=== PATIENT | male | born 1940 | race Caucasian/White ===

== ENCOUNTER → 2016-11-11 | Outpatient (REF) | payer OTHER ==
[~2016-11-11] MED LIST: /ADVA50050; /ALEN70TA; /IPRA3SP; /TAMS4CA; ACET30TAB PO; ADVAIR200 INHALATION; AUG875 PO; BABY81CH; BACI500O8 TOP; BACTROCREA TOPICALLY; CALC12502; CALTAB PO; CARV6.25 PO; CO Q10CA PO; COLA100C2; COMBAER6 INH; COMBIVENT; COMBIVENT PO; COMBVENT INH; CORE6.25; COREG625 PO; DULE200A IN; FISH1000 OR; FISHCAP; FLOMAX 0.4 PO; FOSAMAX70 PO; GRAPE SEED EXTRACT; KEFL500C7 PO; KRIL1000 PO; LACHYDRIN TOP; LASI20TA; LASI20TA PO; LASIX20 PO; LEVO150T7 PO; LEVO175T2 PO; LEVO25TA5 PO; LOVA1CAP17 PO; LUNESTA2 PO; MONOPRIL PO; MULTCAP PO; MULTIVIT PO; PROS5TAB; PROV90AE; PROVENTILI PO; SAWPALMETTO; SYNT25TA PO; TOPROLXL50 PO; TRIAMCINOLONE; VIAGRA50 PO; VICO5TAB; VIOXX50 PO; VIT D 2000 PO; VITA200019 PO; VITA400C29 PO; VITA500046 PO; VITMTA PO; WELLBSR150 PO; [UNRECOGNIZED DRUG - OTHER]; [UNRECOGNIZED DRUG - OTHER] PO; oscal PO
[2016-11-11 20:02] LABS: BASO % 0.8 % (0.0-1.0); EOS # 0.4 K/mm3 (0.0-0.50); EOS % 5.6 % (0.0-3.0); LARGE UNSTAINED CELL # 0.2 K/mm3 (0.0-0.4); LARGE UNSTAINED CELL % 3.1 % (0.0-4.0); LYMPH # 2.6 K/mm3 (1.5-4.5); LYMPH % 35.1 % (24.0-44.0); MEAN CORPUSCULAR HEMOGLOBIN 32.7 pg (27.0-33.0); MEAN CORPUSCULAR HGB CONC 32.1 g/dl (32.0-36.5); MEAN CORPUSCULAR VOLUME 101.9 fl (80.0-96.0); MONO # 0.6 K/mm3 (0.0-0.8); MONO % 8.6 % (0.0-5.0); NEUTROPHILS # 3.2 K/mm3 (1.8-7.7); NEUTROPHILS % 46.8 % (36.0-66.0); PLATELET COUNT, AUTOMATED 182 k/mm3 (150-450); RED CELL DISTRIBUTION WIDTH 13.2 % (11.5-14.5); WHITE BLOOD COUNT 6.9 K/mm3 (4.0-10.0)
[2016-11-11 20:08] LABS: INR 1.02
[2016-11-11 20:44] LABS: ALBUMIN 3.7 GM/DL (3.2-5.2); ALBUMIN/GLOBULIN RATIO 1.16 (1.00-1.93); ALKALINE PHOSPHATASE 46 U/L (45-117); ALT/SGPT 21 U/L (12-78); ANION GAP 11 MEQ/L (8-16); AST/SGOT 22 U/L (15-37); BILIRUBIN,TOTAL 0.4 MG/DL (0.2-1.0); BLOOD UREA NITROGEN 32 MG/DL (7-18); CALCIUM LEVEL 8.8 MG/DL (8.8-10.2); CARBON DIOXIDE LEVEL 26 MEQ/L (21-32); CHLORIDE LEVEL 105 MEQ/L (98-107); CREATININE FOR GFR 1.24 MG/DL (0.70-1.30); GLOMERULAR FILTRATION RATE > 60.0 (>42); GLUCOSE, FASTING 73 MG/DL (83-110); POTASSIUM SERUM 4.5 MEQ/L (3.5-5.1); SODIUM LEVEL 142 MEQ/L (136-145); TOTAL PROTEIN 6.9 GM/DL (6.4-8.2)
== END ==
LOC: M SFHCPLAZ 16:16
PROVIDERS: ATTEND Physician Assistant Medical
DX: C73 Malignant neoplasm of thyroid gland (principal); C61 Malignant neoplasm of prostate; E03.9 Hypothyroidism, unspecified; I10 Essential (primary) hypertension; I50.20 Unspecified systolic (congestive) heart failure; I25.10 Atherosclerotic heart disease of native coronary artery without angina pectoris; R22.2 Localized swelling, mass and lump, trunk
CPT/HCPCS: 36415; 80053; 84432; 85025; 85610; 85730; 86800; G0103; G0463

== ENCOUNTER → 2016-11-12 | Outpatient (CLI) | payer OTHER ==
[~2016-11-12] MED LIST changes: +ISOVUE-370 76% 100ML VIAL (Q9967) As Ordered ONE
--- NOTE | 2016-11-12 16:37 | REP ---
CT NECK WITHOUT CONTRAST: HISTORY: Lung nodule. COMPARISON: 04/01/2015. Surgical clips are present in the right side of the neck in the region of the right carotid space. Increased soft-tissue density is present in the right carotid space consistent with scarring. The naso-, dat-, and hypopharynx and larynx are normal in appearance. A small defect is present in the anterior trachea at the T2-3 level. A surgical clip is present at this level. The salivary glands are normal in appearance. The thyroid gland is not seen. Small lymph nodes less than 1 cm in size are present in the left internal jugular chain, left posterior triangle and submandibular areas. There is no neck mass or adenopathy. There is asymmetry in the sternocleidomastoid muscles with the right being larger than the left. Atherosclerotic calcification is present at the carotid bifurcations. Degenerative change is present in the cervical spine. Scarring is present in the lung apices. Mucosal thickening is present in the left maxillary sinus. IMPRESSION: 1. There is postoperative change in the right carotid space. 2. There is no neck mass or adenopathy. 3. The thyroid gland is not seen. Signed by Jey Roman MD 11/12/2016 05:17 P
--- NOTE | 2016-11-12 22:02 | REP ---
CT chest with IV contrast 11/12/2016 comparison: Prior CTs of chest 09/19/16, 09/04/16, 06/21/14 Technique: Following IV contrast administration of 75 ml Isovue 370 mg/ml, 3 meters spiral axial sections performed through the chest Findings: The thoracic aorta is without aneurysm or dissection. Moderate atherosclerotic changes are noted in the aortic arch and descending thoracic aorta. The heart is normal size. There are moderate coronary calcifications. Two stable right ventricular pacer leads are noted. There are scattered mediastinal and hilar nodes, largest 10 mm in the subcarinal location borderline in size and increased from prior study. There is small hilar nodes none of which are pathologically enlarged. There is hyperinflation flattening of diaphragms consistent with COPD. Extensive changes are noted diffusely. There is stable biapical pleural thickening/scarring. 10 mm noncalcified pulmonary nodule is identified in the right lower lobe abutting the major fissure, on image 82 series 304. This nodule is increased in size when compared with prior studies dating back to 06/21/2014. A 2 mm pleural-based nodule is identified in the left lower lobe, image 73 series 304. Visualized portions of the liver demonstrate mild patchy fatty infiltration. There is a calcified splenic nodule of 15 mm diameter, stable There are no alveolar infiltrates. There is stable indeterminate 2 cm left adrenal nodule Impression 1. Significant COPD with mediastinal adenopathy measuring up to 10 mm short-axis diameter, borderline enlarged. There is also biapical pleural and parenchymal thickening/scarring, stable. 2. 10 mm right lower lobe pulmonary nodule, noncalcified ,on image 82 series 304. This represents interval progression from prior studies. Recommend PET scan in further evaluation . Signed by Kylie Guardado MD 11/12/2016 09:54 P
== END ==
LOC: M RAD 14:23
PROVIDERS: ATTEND Physician Assistant Medical
DX: R91.1 Solitary pulmonary nodule (principal); J44.9 Chronic obstructive pulmonary disease, unspecified
CPT/HCPCS: 70491; 71260; Q9967

== ENCOUNTER → 2016-11-25 | Outpatient (CLI) | payer OTHER ==
[~2016-11-25] MED LIST changes: -ISOVUE-370 76% 100ML VIAL (Q9967) As Ordered ONE
[2016-11-25 09:29] LABS: ANION GAP 6 MEQ/L (8-16); BLOOD UREA NITROGEN 30 MG/DL (7-18); CALCIUM LEVEL 9.1 MG/DL (8.8-10.2); CARBON DIOXIDE LEVEL 30 MEQ/L (21-32); CHLORIDE LEVEL 109 MEQ/L (98-107); CREATININE FOR GFR 1.19 MG/DL (0.70-1.30); GLOMERULAR FILTRATION RATE > 60.0 (>42); GLUCOSE, FASTING 83 MG/DL (83-110); POTASSIUM SERUM 4.5 MEQ/L (3.5-5.1); SODIUM LEVEL 145 MEQ/L (136-145)
== END ==
LOC: M LAB 08:18
PROVIDERS: ATTEND Internal Medicine Cardiovascular Disease
DX: I50.42 Chronic combined systolic (congestive) and diastolic (congestive) heart failure (principal); I25.10 Atherosclerotic heart disease of native coronary artery without angina pectoris

== ENCOUNTER → 2016-11-25 | Outpatient (CLI) | payer OTHER ==
[2016-11-25 09:28] LABS: ALBUMIN 3.7 GM/DL (3.2-5.2); ALBUMIN/GLOBULIN RATIO 1.28 (1.00-1.93); ALKALINE PHOSPHATASE 46 U/L (45-117); ALT/SGPT 21 U/L (12-78); ANION GAP 7 MEQ/L (8-16); AST/SGOT 16 U/L (15-37); BILIRUBIN,TOTAL 0.5 MG/DL (0.2-1.0); BLOOD UREA NITROGEN 31 MG/DL (7-18); CALCIUM LEVEL 8.9 MG/DL (8.8-10.2); CARBON DIOXIDE LEVEL 29 MEQ/L (21-32); CHLORIDE LEVEL 108 MEQ/L (98-107); CREATININE FOR GFR 1.15 MG/DL (0.70-1.30); GLOMERULAR FILTRATION RATE > 60.0 (>42); GLUCOSE, FASTING 82 MG/DL (83-110); POTASSIUM SERUM 4.4 MEQ/L (3.5-5.1); SODIUM LEVEL 144 MEQ/L (136-145); TOTAL PROTEIN 6.6 GM/DL (6.4-8.2)
== END ==
LOC: M LAB 08:22
PROVIDERS: ATTEND Physician Assistant Medical
DX: N18.2 Chronic kidney disease, stage 2 (mild) (principal); R73.01 Impaired fasting glucose; M85.80 Other specified disorders of bone density and structure, unspecified site; I50.42 Chronic combined systolic (congestive) and diastolic (congestive) heart failure; I25.10 Atherosclerotic heart disease of native coronary artery without angina pectoris

== ENCOUNTER → 2016-11-27 | Outpatient (CLI) | payer OTHER ==
[~2016-11-27] MED LIST changes: +LIDOCAINE 1% MDV 20ML VIAL As Ordered ONE
--- NOTE | 2016-11-27 15:32 | REP ---
ULTRASOUND GUIDED RIGHT SUPRACLAVICULAR MASS BIOPSY: The procedure was performed under the direct supervision of Dr. Peguero. The patient has a history of a 3 cm mass present in the superior to middle third of the right clavicle seen on a previous CAT scan dated 11/12/2016. The risks and benefits of the procedure were explained to the patient and informed consent was obtained. The right supraclavicular mass was localized using ultrasound guidance. The skin was prepped and draped in a sterile fashion. 1% Xylocaine was used as a local anesthetic. Using ultrasound guidance a 19/20 gauge co-axial needle biopsy system was inserted and advanced into the mass. Eight core biopsy samples were obtained and send to the lab. The patient tolerated the procedure well and there were no immediate complications. After the appropriate amount of monitored convalescence the patient was discharged from the department. Reviewed by HEATHER Urias 11/27/2016 04:08 PEdited and Signed by Hossein Peguero MD 11/28/2016 08:26 A
== END ==
LOC: M RADPRO 07:50
PROVIDERS: ATTEND Physician Assistant Medical
DX: C79.89 Secondary malignant neoplasm of other specified sites (principal); Z85.46 Personal history of malignant neoplasm of prostate; R91.8 Other nonspecific abnormal finding of lung field; E03.9 Hypothyroidism, unspecified; M19.90 Unspecified osteoarthritis, unspecified site; I12.9 Hypertensive chronic kidney disease with stage 1 through stage 4 chronic kidney disease, or unspecified chronic kidney disease; I50.20 Unspecified systolic (congestive) heart failure; I25.10 Atherosclerotic heart disease of native coronary artery without angina pectoris; E78.5 Hyperlipidemia, unspecified; J44.9 Chronic obstructive pulmonary disease, unspecified; M81.0 Age-related osteoporosis without current pathological fracture; Z79.51 Long term (current) use of inhaled steroids; N18.2 Chronic kidney disease, stage 2 (mild); Z87.891 Personal history of nicotine dependence; Z86.19 Personal history of other infectious and parasitic diseases; Z95.810 Presence of automatic (implantable) cardiac defibrillator; Z79.899 Other long term (current) drug therapy; Z08 Encounter for follow-up examination after completed treatment for malignant neoplasm

== ENCOUNTER → 2016-12-05 | Outpatient (REF) | payer OTHER ==
[~2016-12-05] MED LIST changes: -LIDOCAINE 1% MDV 20ML VIAL As Ordered ONE
[2016-12-05 12:57] LABS: HEPATITIS B SURFACE ANTIBODY NEGATIVE (POSITIVE)
== END ==
LOC: M LAB REF 12:32
PROVIDERS: ATTEND Internal Medicine Medical Oncology
DX: M89.9 Disorder of bone, unspecified (principal)

== ENCOUNTER → 2016-12-09 | Outpatient (REF) | payer OTHER ==
[2016-12-09 16:14] LABS: FREE T4 2.1 NG/DL (0.76-1.46)
== END ==
LOC: M LABDRAW1 13:03
PROVIDERS: ATTEND Internal Medicine Endocrinology, Diabetes & Metabolism
DX: C73 Malignant neoplasm of thyroid gland (principal)

== ENCOUNTER → 2016-12-10 | Outpatient (CLI) | payer OTHER ==
[~2016-12-10] MED LIST changes: +ALBU17IN INH; +ATOR1TAB19 PO; +CALC600T57 PO; +FURO20TA2 PO; +INCR1INH INH; +LEVO125T3 PO; +LISI2.5T3 PO; +SOTA80TA2 PO
--- NOTE | 2016-12-11 10:11 | REP ---
PET/CT: History: Staging anaplastic thyroid malignancy. Comparisons: Comparison CT study of the chest and neck are from December 02 and November 12, 2016. On November 27, the patient underwent ultrasound-guided needle biopsy of a right supraclavicular mass. The most recent chest CT reported multiple new pulmonary nodules. There is a prior PET/CT also reviewed from March 15, 2015. TECHNIQUE: 63 minutes following the intravenous injection of a 8.1 mCi dose of F-18 FDG, three-dimensional PET scintigraphy is acquired from the skull base to the proximal thighs. Triplanar noncontrast CT scanning is acquired through the same anatomic range for attenuation correction, and image registration with scan parameters optimized to minimize radiation exposure to the patient. PET scintigraphy and CT datasets were fused and displayed on a workstation with multiplanar and projection display capability. PET/CT Findings: There are innumerable hypermetabolic foci distributed throughout both lungs consistent with rapidly progressing pulmonary metastatic disease. There are multiple hilar and mediastinal hypermetabolic foci as well which appear to be enlarged compared to the recent prior chest CT. There are deposits of hypermetabolic uptake in the chest wall anteriorly on the right and several hypermetabolic neris foci are seen in the right supraclavicular region including the biopsied large neris mass. There is a somewhat loculated appearing small right pleural effusion with pleural-based foci of hypermetabolic uptake. No definite bony metastatic uptake is seen. No abdominal or pelvic hypermetabolic uptake is observed. Standard uptake value in the large and recently biopsied right supraclavicular neris mass is quite high, 20.6. Apart from several adjacent right supraclavicular and tess clavicular and subclavian hypermetabolic neris foci, the head and neck soft tissues are unremarkable. Maximum standard uptake value in the lung nodules is in the range of 15. Mediastinal neris hypermetabolic uptake standard uptake values is similar as well up to 18. The right anterior chest wall hypermetabolic uptake ranges somewhat less approximately 6.5. Impression: Innumerable foci of pulmonary parenchymal metastatic hypermetabolic uptake. Mediastinal neris, right supraclavicular and subclavian neris uptake is also seen. There is soft tissue right anterior chest wall uptake and a small right pleural effusion has developed. There is evidence of rapid progression. Signed by Hossein Peguero MD 12/11/2016 01:54 P
== END ==
LOC: M RAD 14:31
PROVIDERS: ATTEND Internal Medicine Medical Oncology
DX: C73 Malignant neoplasm of thyroid gland (principal)
CPT/HCPCS: 78815; A9552

== ENCOUNTER → 2016-12-11 | Outpatient (CLI) | payer OTHER ==
--- NOTE | 2016-12-11 18:40 | ECHO ---
DATE OF PROCEDURE: 12/11/2016 REFERRING PHYSICIAN: Dr. Mckenna Feldman Study was performed on an outpatient basis. INDICATION: Thyroid cancer, hypertensive heart disease. HEIGHT: 175 cm WEIGHT: 73 kg DIMENSIONS: IVS: 1.2 LV: 5.1 LVPW: 1.2 LA: 3.5 Aorta 3.7 FINDINGS: Study is of rather difficult technical quality. Left ventricle is normal size and overall normal contractility. There is a septal wall motion abnormality. I suspect most likely due to pacemaker driven rhythm. Overall left ventricle ejection fraction (LVEF) is estimated around 50-55%. Right ventricle appears markedly dilated but normally contractile. Both atria are enlarged. Left atrium probably moderately and right atrium severely. Aortic valve is poorly visualized. It is sclerotic but I do not appreciate any restriction of leaflet mobility. There are degenerative abnormalities of mitral valve with mitral annular calcifications at the base of posterior mitral leaflet. Tricuspid valve was poorly seen. There are echo artifacts apparent in right atrium and right ventricle consistent with pacemaker or ICD electrodes. Pulmonic valve was also not well seen but grossly appears normal. No pericardial effusion is noted. Inferior vena cava is dilated but collapses with respiration indicative of at least mildly elevated central venous pressure. Aortic root is on upper limits of normal size. Aortic arch and abdominal aorta were not visualized. Doppler interrogation reveals no aortic stenosis and mild aortic insufficiency. There is trace mitral insufficiency and probably severe tricuspid insufficiency. There appears to be reflux into pulmonary veins in systole. I suspect that the tricuspid regurgitation (TR) is secondary to pacemaker / ICD lead. Pulmonic valve is functionally competent. Evaluation of diastolic function was somewhat complicated due to the patient having frequent ventricular ectopy but based on mitral inflow pattern and tissue Doppler imaging, the patient has grade 1 diastolic dysfunction. Septal and lateral mitral annular tissue Doppler velocities were 5.4 and 10.9 cm/sec respectively. CONCLUSIONS: 1. Study is of fair technical quality. 2. Normal left ventricle (LV) size with mild left ventricular hypertrophy (LVH) , septal wall motion abnormality but overall preserved LV systolic function. Grade 1 diastolic dysfunction. 3. Degenerative abnormalities of aortic valve resulting in mild insufficiency. 4. Trace mitral insufficiency. 5. Probably severe tricuspid insufficiency likely due to interference with leaflet closure from ICD / pacemaker leads. 5. High central venous pressure. 6. At least moderately severe pulmonary hypertension COMMENT: Subacute bacterial endocarditis (SBE) prophylaxis is not recommended. CC: Mani Treadwell MD [facility]
== END ==
LOC: M CARPUL 12:21
PROVIDERS: ATTEND Internal Medicine Medical Oncology
DX: C73 Malignant neoplasm of thyroid gland (principal); I11.9 Hypertensive heart disease without heart failure

== ENCOUNTER 2016-12-15 10:17 | Inpatient (IN) | payer OTHER ==
[~2016-12-15] VITALS: Ht 182.9 cm; Wt 70.0 kg
[~2016-12-15 10:17] MED LIST changes: -ALBU17IN INH; -ATOR1TAB19 PO; -CALC600T57 PO; -FURO20TA2 PO; -INCR1INH INH; -LEVO125T3 PO; -LISI2.5T3 PO; -SOTA80TA2 PO
[2016-12-15] MEDS ORDERED: IPRATROPIUM 0.5MG/ALBUTEROL 2.5MG INH SOL UD 3ML (DUONEB)(J7620) As Ordered ONE (11:14)
[2016-12-15] MEDS ORDERED: ALBUTEROL SULFATE 2.5 MG/0.5 ML INH NEB SOLN As Ordered ONE (11:14)
[2016-12-15 11:41] LABS: ABG BASE EXCESS -3.9 (-2.0-2.0); ABG DEVICE NASAL CANN; ABG HCO3 19.5 MEQ/L (22.0-26.0); ABG PARTIAL PRESSURE CO2 31.2 mmHg (35.0-45.0); ABG PARTIAL PRESSURE O2 64.9 mmHg (75.0-100.0); ABG STANDARD HCO3 21.1 MEQ/L (22.0-26.0); ABG TOTAL CO2 20.5 MEQ/L (23.0-31.0); ABG pH (ARTERIAL) 7.414 UNITS (7.350-7.450)
[2016-12-15 11:41] LABS: BASO % 0.3 % (0.0-1.0); EOS # 0.3 K/mm3 (0.0-0.50); EOS % 3.9 % (0.0-3.0); LARGE UNSTAINED CELL # 0.2 K/mm3 (0.0-0.4); LARGE UNSTAINED CELL % 2.2 % (0.0-4.0); LYMPH # 1.3 K/mm3 (1.5-4.5); LYMPH % 13.4 % (24.0-44.0); MEAN CORPUSCULAR HEMOGLOBIN 33.2 pg (27.0-33.0); MEAN CORPUSCULAR HGB CONC 33.5 g/dl (32.0-36.5); MEAN CORPUSCULAR VOLUME 99.1 fl (80.0-96.0); MONO # 0.7 K/mm3 (0.0-0.8); MONO % 8.3 % (0.0-5.0); NEUTROPHILS # 6.2 K/mm3 (1.8-7.7); PLATELET COUNT, AUTOMATED 223 k/mm3 (150-450); RED CELL DISTRIBUTION WIDTH 12.6 % (11.5-14.5); WHITE BLOOD COUNT 8.6 K/mm3 (4.0-10.0)
[2016-12-15 12:12] LABS: ANION GAP 12 MEQ/L (8-16); BLOOD UREA NITROGEN 20 MG/DL (7-18); CALCIUM LEVEL 8.1 MG/DL (8.8-10.2); CARBON DIOXIDE LEVEL 25 MEQ/L (21-32); CHLORIDE LEVEL 105 MEQ/L (98-107); CREATININE FOR GFR 0.98 MG/DL (0.70-1.30); GLOMERULAR FILTRATION RATE > 60.0 (>42); GLUCOSE, FASTING 89 MG/DL (83-110); POTASSIUM SERUM 4.5 MEQ/L (3.5-5.1); SODIUM LEVEL 142 MEQ/L (136-145)
--- NOTE | 2016-12-15 12:37 | REP ---
AP PORTABLE CHEST: 12/15/2016 COMPARISON: PET/CT 12/10/2016, CT chest 12/02/2016, 11/12/2016. CLINICAL HISTORY: Dyspnea. Widespread metastatic disease on PET/CT and abnormal CT chest recently. Multilead AICD pacer again seen and unchanged. Left ventricular configuration of the heart without gross cardiomegaly. There is a right lateral pleural collection, new since the 12/02/2016 study, present and smaller on the PET/CT 12/10/2016. This suggests loculated pleural effusion. Nodular interstitial infiltrates throughout the right lung with diffuse fibrotic changes on the left. There is a supraclavicular mass on the right. The aorta is calcified at the arch, mildly tortuous without aneurysm. Airway intact. There are clips at the right neck base from prior thyroid surgery. IMPRESSION: 1. Left ventricular configuration of the heart without david edema. Multilead AICD pacer, unchanged. 2. New since CT of 2 weeks ago but seen on last week's PET/CT, is a right lateral base pleural density consistent with loculated pleural fluid collection. The diffuse nodular interstitial infiltrates in the right lung and lesser underlying interstitial changes of the left lung noted. The nodules on the right are less apparent than they are by CT and PET/CT recently. Signed by Tom Head MD 12/15/2016 04:23 P
[2016-12-15] MEDS ORDERED: ISOVUE-370 76% 100ML VIAL (Q9967) As Ordered ONE (12:45)
[2016-12-15] MEDS ORDERED: cefTRIAXone SOD 1 GM VIAL (J0696) As Ordered ONE (13:07)
[2016-12-15] MEDS ORDERED: AZITHROMYCIN INJ 500MG VIAL (J0456) As Ordered ONE (13:08)
[2016-12-15] MEDS ORDERED: CALC600T57 PO (13:16)
[2016-12-15] MEDS ORDERED: SOTA80TA2 PO (13:16)
[2016-12-15] MEDS ORDERED: ATOR1TAB19 PO (13:16)
[2016-12-15] MEDS ORDERED: LEVO125T3 PO (13:16)
[2016-12-15] MEDS ORDERED: LISI2.5T3 PO (13:16)
[2016-12-15] MEDS ORDERED: INCR1INH INH (13:16)
[2016-12-15] MEDS ORDERED: FURO20TA2 PO (13:16)
[2016-12-15] MEDS ORDERED: ALBU17IN INH (13:17)
--- NOTE | 2016-12-15 13:58 | REP ---
CT pulmonary angiogram: With IV contrast. History: Shortness of breath, cough, question pulmonary embolism. Abnormal chest x-ray. Comparison studies: Comparison chest CT study December 02, 2016. Contrast dose: 75 cc's of Isovue [address] technique: Helical scanning is acquired and overlapping 1.5 mm and contiguous 3 mm axial images are reformatted. In addition, a 3-D work station is deployed to generate thick slab maximum intensity projection images in sagittal and coronal imaging projections. CT pulmonary angiographic findings: There is good opacification of the pulmonary arterial tree and there is no CT evidence of pulmonary embolism. The thoracic aorta shows multifocal vascular calcification but is otherwise intact. There is a pacemaker in place. There is a loculated appearing right pleural effusion with a enlarging collection along the right lateral chest wall increased in size from the recent PET/CT study December 10, 2016. There is also a component of this posteriorly and medially which is enlarged since the December 10, 2016 study as well. There is fairly bulky mediastinal and right hilar lymphadenopathy. This has progressed in the extent and size since the December 02, 2016 study. There is evidence of COPD. Multiple pulmonary nodules consistent with metastatic disease are seen. These nodules are more pronounced than on the 12/02/2016 study. Impression: 1. Progressive multi-loculated appearing right pleural effusion. 2. Progressive pulmonary metastatic disease. 3. Progressive mediastinal and right hilar lymphadenopathy. 4. No CT evidence of pulmonary embolism. Signed by Hossein Peguero MD 12/15/2016 02:35 P
--- NOTE | 2016-12-15 14:06 | HPEPDOC ---
Medical History and Physical Date of Admission 12/15/16 History and Physical ATTENDING: Dr. Willson PCP: Demetris CC: SOB HPI: 76yoM with a past medical history significant for COPD, HTN, hypothyroidism who summoned EMS this AM with 2 day h/o SOB. O2 sat was 86% on RA. Placed on NRB with increase to 99%. Pt states has had some cough- non productive and some chest congestion. Denies any fevers, chills, weakness, fatigue, DAVIS, CP, palpitations, abdominal pain, N/V/D or changes in bowel or bladder habits. Upon presentation to the hospital the patient was found to have RLL Pn/COPD exacerbation, thus the hospitalist team was consulted. PMHx: COPD HTN Hypothyroid HLD Metastatic Ca- Pulmonary foci- recent PET completed as per Dr Feldman. PSHX: FNA 11/25 Rt supraclavicular node metastatic Ca, C/W Thyroid Primary. H/O Recurrent papillary thyroid Ca/Rt modified Radical neck dissection 07/16/ left thyroid lobectomy 03/23- Yves. prostatectomy AICD insertion Follows with Dr Duong Smith. SOCHX: Resides in: [place] Marital Status: single Kids: none Employment: retired -[employer] Tobacco use: quit 10 yrs ago- 35 yrs 3 ppd ETOH: quit 15 yrs ago- 25-30 yrs " heavy drinker" per pt Illicit Drugs: Denies Recent travel:denies Advanced directives: denies ROS: As noted in HPI, otherwise 11pt ROS of systems reviewed and unremarkable. PE: GEN: 76yoM, appears stated age. Well-nourished, well developed. No acute distress. Alert and oriented x 3. Pleasant, interactive. HEENT: Normocephalic, atraumatic. Pupils are equal, round, and reactive to light. Extraocular movements are intact. No nystagmus appreciated. Sclera are nonicteric. Conjunctiva without injection. Nose midline. Nasal turbinates without bogginess. EACs both patent BL. No facial asymmetry. Moist mucous membranes. Dentition fair. Pharynx pink and moist, no cobblestoning. Neck supple , trachea midline. No lymphadenopathy or thyromegaly appreciated. CHEST: Regular rate and rhythm, +S1, +S2 LUNGS: decreased BS bilaterally exp wheezes noted. No rales/ rhonchi. Breathing appears symmetric and easy. Patient is speaking in full sentences. No accessory muscle use. ABD: Round, soft, non-tender, non-distended. +Bowel sounds throughout. No rebound or guarding. No costovertebral angle tenderness. EXT: Pulses 2+ bilaterally dorsalis pedis and radial. No lower extremity edema appreciated. SKIN: [place], dry, warm. Capillary refill <2sec. No rashes. NEURO: Alert and oriented x 3. Cranial nerves III-XII are intact. No focal deficits appreciated. CXR: 1. Left ventricular configuration of the heart without david edema. Multilead AICD pacer, unchanged. 2. New since CT of 2 weeks ago but seen on last week's PET/CT, is a right lateral base pleural density consistent with loculated pleural fluid collection. The diffuse nodular interstitial infiltrates in the right lung and lesser underlying interstitial changes of the left lung noted. The nodules on the right are less apparent than they are by CT and PET/CT recently. PET NM 12/10/16 Innumerable foci of pulmonary parenchymal metastatic hypermetabolic uptake. Mediastinal neris, right supraclavicular and subclavian neris uptake is also seen. There is soft tissue right anterior chest wall uptake and a small right pleural effusion has developed. There is evidence of rapid progression. Echo 12/11/16 1. Study is of fair technical quality. 2. Normal left ventricle (LV) size with mild left ventricular hypertrophy (LVH) , septal wall motion abnormality but overall preserved LV systolic function. Grade 1 diastolic dysfunction. 3. Degenerative abnormalities of aortic valve resulting in mild insufficiency. 4. Trace mitral insufficiency. 5. Probably severe tricuspid insufficiency likely due to interference with leaflet closure from ICD / pacemaker leads. 5. High central venous pressure. 6. At least moderately severe pulmonary hypertension CTA: 1. Progressive multi-loculated appearing right pleural effusion. 2. Progressive pulmonary metastatic disease. 3. Progressive mediastinal and right hilar lymphadenopathy. 4. No CT evidence of pulmonary embolism. EKG: Ventricular pacing. BLOOD CULTURES: x 2 pending. A&P: 76yoM with a past medical history significant for COPD, HTN, hypothyroidism who summoned EMS this AM with 2 day h/o SOB. O2 sat was 86% on RA. Placed on NRB with increase to 99%. Pt states has had some cough- non productive and some chest congestion. Denies any fevers, chills, weakness, fatigue, DAVIS, CP, palpitations, abdominal pain, N/V/D or changes in bowel or bladder habits. The patient will be admitted to /S for at least [address] Willson's service. RLL CAP. IV Rocephin/Zithromax. SC/BC pending. COPD exacerbation. Supplemental O2/ Duonebs. IV Solumedrol 40mg Q8. Loculated Effusion. Plan is to Clt Dr Mills. Metastatic Ca. Pt has seen Dr Feldman. PET as above. HTN. Lasix/Lisinopril. Hypothyroid. Supplement. AICD. Cont. Sotalol. DVT prophylaxis. The patient is a Full CODE. Vital Signs 126/59 64 20 99.4 92% Laboratory Data Labs 24H Laboratory Tests 2 12/15/16 11:21: Arterial Blood pH 7.414, Arterial Blood Partial Pressure CO2 31.2L, Arterial Blood Partial Pressure O2 64.9L, Arterial Blood Total CO2 20.5L, Arterial Blood HCO3 19.5L, Arterial Blood Base Excess -3.9L, Arterial Blood Oxygen Saturation 92.1L, Blood Gas Bicarbonate Standard 21.1L, Oxygen Delivery Device NASAL CHRISTELLE 12/15/16 11:25: Anion Gap 12, B-Type Natriuretic Peptide 635H, White Blood Count 8.6, Red Blood Count 4.03L, Hemoglobin 13.4L, Hematocrit 39.9L, Mean Corpuscular Volume 99.1H, Mean Corpuscular Hemoglobin 33.2H, Mean Corpuscular Hemoglobin Concent 33.5, Red Cell Distribution Width 12.6, Platelet Count 223, Neutrophils (%) (Auto) 72.0H, Lymphocytes (%) (Auto) 13.4L, Monocytes (%) (Auto) 8.3H, Eosinophils (%) (Auto) 3.9H, Basophils (%) (Auto) 0.3, Neutrophils # (Auto) 6.2, Lymphocytes # ( Auto) 1.3L, Monocytes # (Auto) 0.7, Eosinophils # (Auto) 0.3, Basophils # (Auto ) 0.0, Blood Urea Nitrogen 20H, Creatinine 0.98, Sodium Level 142, Potassium Level 4.5, Chloride Level 105, Carbon Dioxide Level 25, Calcium Level 8.1L, Total Creatine Kinase 71, Creatine Kinase MB 2.3, Creatine Kinase MB Relative Index 3.23, Glomerular Filtration Rate > 60.0, Large Unclassified Cells # 0.2, Large Unclassified Cells % 2.2, Troponin I < 0.02 CBC/BMP Laboratory Tests 12/15/16 11:25 Calcium Level 8.1 L, Total Creatine Kinase 71, Red Blood Count 4.03 L, Mean Corpuscular Volume 99.1 H, Mean Corpuscular Hemoglobin 33.2 H, Mean Corpuscular Hemoglobin Concent 33.5, Red Cell Distribution Width 12.6, Neutrophils (%) (Auto ) 72.0 H, Lymphocytes (%) (Auto) 13.4 L, Monocytes (%) (Auto) 8.3 H, Eosinophils (%) (Auto) 3.9 H, Basophils (%) (Auto) 0.3, Neutrophils # (Auto) 6.2 , Lymphocytes # (Auto) 1.3 L, Monocytes # (Auto) 0.7, Eosinophils # (Auto) 0.3, Basophils # (Auto) 0.0 Microbiology Microbiology 12/15/16 Blood Culture, Received Pending 12/15/16 Blood Culture, Received Pending Home Medications Scheduled (Calcium + D3 600-200 mg-Unit) 1 Tab Tab 1 TAB PO DAILY (Sotalol HCl) 80 Mg Tab 80 MG PO BID (Incruse Ellipta) 62.5 Mcg/Inh Inh 62.5 MCG INH DAILY Atorvastatin Calcium (Atorvastatin Calcium) 10 Mg Tab 10 MG PO QHS Furosemide (Furosemide) 20 Mg Tab 10 MG PO BID Levothyroxine Sodium (Synthroid) 125 Mcg Tab 125 MCG PO DAILY Lisinopril (Lisinopril) 2.5 Mg Tab 2.5 MG PO DAILY TAKES AT LUNCH TIME Multivitamins *[facility] STOCKED* (Thera M Plus *[facility] STOCKED*) 1 Tab Tab 0.5 TAB PO BID Scheduled PRN Albuterol Sulfate (Ventolin Hfa) 200 Puff/8 Gm Aers 2 PUFF INH QID PRN PRN SHORTNESS OF BREATH Albuterol/Ipratropium (Combivent Respimat 20-100 Mcg/Act) 1 Aer Aer 2 PUFF INH QID PRN PRN SHORTNESS OF BREATH Allergies Coded Allergies: No Known Allergies (Verified , 07/20/03) Jamia Gunter Dec 15, 2016 14:06
[2016-12-15] MEDS ORDERED: IPRATROPIUM 0.5MG/ALBUTEROL 2.5MG INH SOL UD 3ML (DUONEB)(J7620) NEB PRN (15:00)
[2016-12-15 20:00] VITALS: BP 131/81
[2016-12-15] MEDS ORDERED: methylPREDNISolone INJ 125 MG/2 ML VIAL (J2930) As Ordered ONE (20:53)
[2016-12-15] MEDS ORDERED: FUROSEMIDE 20 MG TAB As Ordered ONE (20:54)
[2016-12-15] MEDS: FUROSEMIDE 20 MG TAB PO SCH (20:59)
[2016-12-15] MEDS: methylPREDNISolone INJ 125 MG/2 ML VIAL (J2930) IV SCH (20:59)
[2016-12-15] MEDS: ATORVASTATIN 10 MG TAB PO SCH (20:59)
[2016-12-15] MEDS: SOTALOL HCL 80 MG TAB PO SCH (20:59)
[2016-12-16] VITALS (28 sets, daily range): BP systolic 96–142; BP diastolic 56–79
[2016-12-16] MEDS ORDERED: methylPREDNISolone INJ 125 MG/2 ML VIAL (J2930) As Ordered ONE (04:41)
[2016-12-16] MEDS: methylPREDNISolone INJ 125 MG/2 ML VIAL (J2930) IV SCH ×2 (04:45→12:44)
[2016-12-16] MEDS: LEVOTHYROXINE 0.125 MG TAB (125 MCG) PO SCH (06:07)
[2016-12-16 07:34] LABS: EOS % 0.7 % (0.0-3.0); LARGE UNSTAINED CELL % 0.6 % (0.0-4.0); LYMPH # 0.8 K/mm3 (1.5-4.5); MEAN CORPUSCULAR HEMOGLOBIN 32.8 pg (27.0-33.0); MEAN CORPUSCULAR HGB CONC 33.5 g/dl (32.0-36.5); MEAN CORPUSCULAR VOLUME 98.1 fl (80.0-96.0); MONO # 0.1 K/mm3 (0.0-0.8); MONO % 2.2 % (0.0-5.0); NEUTROPHILS # 5.3 K/mm3 (1.8-7.7); NEUTROPHILS % 84.6 % (36.0-66.0); PLATELET COUNT, AUTOMATED 245 k/mm3 (150-450); RED CELL DISTRIBUTION WIDTH 12.5 % (11.5-14.5); WHITE BLOOD COUNT 6.3 K/mm3 (4.0-10.0)
[2016-12-16 07:50] LABS: ALBUMIN 2.7 GM/DL (3.2-5.2); ALBUMIN/GLOBULIN RATIO 0.73 (1.00-1.93); ALKALINE PHOSPHATASE 59 U/L (45-117); ALT/SGPT 18 U/L (12-78); ANION GAP 9 MEQ/L (8-16); AST/SGOT 16 U/L (15-37); BILIRUBIN,TOTAL 0.4 MG/DL (0.2-1.0); BLOOD UREA NITROGEN 18 MG/DL (7-18); CALCIUM LEVEL 8.5 MG/DL (8.8-10.2); CARBON DIOXIDE LEVEL 27 MEQ/L (21-32); CHLORIDE LEVEL 103 MEQ/L (98-107); CREATININE FOR GFR 0.97 MG/DL (0.70-1.30); GLOMERULAR FILTRATION RATE > 60.0 (>42); GLUCOSE, FASTING 137 MG/DL (83-110); POTASSIUM SERUM 4.5 MEQ/L (3.5-5.1); SODIUM LEVEL 139 MEQ/L (136-145); TOTAL PROTEIN 6.4 GM/DL (6.4-8.2)
[2016-12-16] MEDS: IPRATROPIUM 0.5MG/ALBUTEROL 2.5MG INH SOL UD 3ML (DUONEB)(J7620) NEB SCH ×3 (08:00→20:49)
[2016-12-16] MEDS ORDERED: ENOXAPARIN 30 MG/0.3 ML SYR (J1650) As Ordered ONE (08:41)
[2016-12-16] MEDS: FUROSEMIDE 20 MG TAB PO SCH ×2 (08:44→16:25)
[2016-12-16] MEDS: SOTALOL HCL 80 MG TAB PO SCH ×2 (08:44→22:30)
[2016-12-16] MEDS: ENOXAPARIN 30 MG/0.3 ML SYR (J1650) SC SCH (08:44)
--- NOTE | 2016-12-16 08:53 | IPN ---
DATE: 12/16/2016 SUBJECTIVE: The patient is here after being admitted with increasing pulmonary infiltrates and dyspnea, found to have a pleural base right-sided lesion, diffuse infiltrates in the right lung field in particular. He does have a history of metastatic highly anaplastic thyroid carcinoma confirmed on recent outpatient biopsy and the patient has been seen by Dr. Mills although dictation from Dr. Mills has not yet been made available in the record. Consult has been arranged for the patient to see Dr. Feldman. A phone call has been placed to his office regarding the patient's status and recommendations for treatment. He is currently seeking treatment for presumptive pneumonia, although his white count was normal on admission and he has not been febrile. X-ray appearance seems to be consistent with metastatic disease and/or pneumonia. He is on oxygen saturations at 94%. He is on oxygen support with nasal cannula and is sating adequately. OBJECTIVE: Blood pressure 142/78, oxygen saturation 92% nasal cannula 4 liters, pulse 50, temperature 96.4. He does have a pacemaker. Auscultation of the chest shows honking breath sounds bilaterally, dull to percussion on right side up to the level of the scapula. He has no chest wall tenderness. There is a approximately 5 cm enlargement in right supraclavicular fossa consistent with large node. Biopsy of this lesion recently where he returned highly anaplastic thyroid tumor and operative referral was made at that point to see Dr. Feldman for further advice regarding management of his metastatic disease. 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 ASSESSMENT: Pulmonary infiltrates with right pleural base mass lesion, known metastatic thyroid cancer, suspect these represent metastatic disease and progressive disease secondary to same. Suspect primary treatment requirement will be chemotherapy and/or radiation. The patient has had previous documentation in the chart from the outpatient arena that he has been DO NOT RESUSCITATE order. PLAN: Proceed with admission, oxygen support, antibiotics for now. Complete review and likely consultation with medical oncology. I am not convinced there is substantial benefit for this gentleman from being admitted other than connecting him with oxygen support that he needs ongoing if he is to be discharged with outpatient. Will confirm patient's wish for DO NOT RESUSCITATE order.
[2016-12-16] MEDS ORDERED: IPRATROPIUM 0.5MG/ALBUTEROL 2.5MG INH SOL UD 3ML (DUONEB)(J7620) As Ordered ONE (11:13)
--- NOTE | 2016-12-16 12:18 | EDDOCDS ---
Nurse's Notes [facility] Name: Carmina Oseguera Age: 76 yrs Sex: Male : 1940 Arrival Date: 12/15/2016 Time: 10:17 Bed Admit Hold Private MD: Diagnosis: Pneumonia, unspecified organism;Dyspnea Presentation: 12/15 10:24 Presenting complaint: EMS states: Patient became SOB this morning. EMS states 86% on RA js13 when arrived. Patient put on 10L NRB mask and O2 up to 99%. LS clear. Suicide/Homicide risk assessment- the patient denies having any suicidal and/or homicidal ideations and does not present with any other emotional, behavioral or mental health complaints. 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 Transition of care: patient was not received from another setting of care. Care prior to arrival: See EMS report. Saline lock initiated. Glucose check. 112 Oxygen administered by EMS. 10:24 Acuity: JACKIE Level 3 js13 10:24 Method Of Arrival: Ambulance 13 10:43 Adult Sepsis Screening: The patient does not have new or worsening altered mentation. js13 Patient's respiratory rate is less than 22. Systolic blood pressure is greater than 100. Patient has a qSOFA score of 0- Negative Sepsis Screen. Triage Assessment: 10:30 General: Appears in no apparent distress, Behavior is appropriate for age, cooperative. js13 General: Patient states symptoms improved. Pain: Denies pain. Neurological: Level of Consciousness is awake, alert. Cardiovascular: Rhythm is with capture Chest pain is denied. Respiratory: Onset: The symptoms/episode began/occurred this morning, Airway is patent Respiratory effort is even, unlabored, Respiratory pattern is regular, symmetrical, Breath sounds are clear. Derm: Skin is pink, warm & dry. Historical: - Allergies: no known allergies; - Home Meds: 1. Calcium + Vitamin D 600 mg calcium- 200 unit oral tab 2. levothyroxine 125 mcg oral tab once daily 3. sotalol 80 mg Oral tab 1 tab 2 times per day 4. lisinopril 2.5 mg Oral tab 1 tab once daily 5. atorvastatin 10 mg oral tab 1 tab once daily 6. Lasix 20 mg Oral tab 1 tab once daily 7. Combivent 18-103 mcg/actuation Inhl aero 2 puffs 4 times per day 8. Incruse Ellipta 62.5 mcg/actuation inhalation dsdv 1 puff once daily 9. albuterol sulfate 90 mcg/actuation Inhl HFAA every 6 hours - PMHx: COPD; Hypercholesterolemia; Hypertension; Hypothyroidism; - PSHx: Thyroidectomy; Prostatectomy; AICD insertion; - Family history: Not pertinent. - Social history: Smoking status: Patient states former smoker of tobacco. No barriers to communication noted, The patient speaks fluent Barbadian. - : The pt / caregiver states he / she is not on anticoagulants. Home medication list is obtained from the patient. - Exposure Risk Screening:: None identified. Screenin:31 Screening information is obtained from the patient. Fall risk: At risk due to age. js13 Assistance ADL's: requires no assistance with activities of daily living. Abuse/DV Screen: The patient / caregiver reports he/she is: not in a situation that causes fear, pain or injury. Nutritional screening: No deficits noted. Advance Directives: There is no active DNR order. home support is adequate. Assessment: 10:34 General: See triage assessment. js13 11:37 General: Appears in no apparent distress, Behavior is appropriate for age, cooperative. rs3 Pain: Denies pain. Neurological: Level of Consciousness is awake, alert, Oriented to person, place, time. Cardiovascular: Capillary refill < 3 seconds Clubbing of nail beds is absent Heart tones S1 S2 present Rhythm is atrial pacer Chest pain is denied. Respiratory: Airway is patent Respiratory effort is even, unlabored, Respiratory pattern is regular, symmetrical, Sputum is white Breath sounds with crackles in right posterior middle lobe Breath sounds are diminished bilaterally. Derm: Skin is pink, warm & dry. 12:43 General: Appears in no apparent distress, Behavior is appropriate for age, cooperative, rs3 resting comfortable on stretcher. denies of pain/acute distress/difficulty breathing. breathes easy. 13:45 General: Appears in no apparent distress, Behavior is cooperative, resting comfortable rs3 on stretcher. neisha elwis given. denies of pain/'distress. 14:50 General: Appears in no apparent distress, resting comfortable on stretcher. denies of rs3 pain/distress. ordered antibiotic infusing. tolerating well. breathes easy. 15:50 General: Appears in no apparent distress, denies of distress/pain. breathes easy. vital rs3 signs stable. on oxygen 4L/nc sat 93%. 16:40 General: Appears in no apparent distress, Behavior is appropriate for age, cooperative, rs3 family at bedside. denies of pain/distress. bedside urinal given. tolerating standing by the bedside with oxygen. no SOB. . 17:53 General: Appears in no apparent distress, Behavior is appropriate for age, sits at the rs3 edge of stretcher eating supper. tolerating well. oxygen sat remains at 90% on 4L/nc. breathes easy. 18:43 General: Appears in no apparent distress, Behavior is appropriate for age, cooperative, rs3 denies of acute distress/pain. breathes easy. family at bedside. vital signs stable. 19:04 General: Verbal report given by Nichole Dietrich RN. Assumed care of patient at this time.. kas2 19:17 General: Appears in no apparent distress, comfortable, well nourished, well groomed, kas2 Behavior is appropriate for age, cooperative. Pain: Denies pain. Neurological: Level of Consciousness is awake, alert, Oriented to person, place, time. Cardiovascular: Capillary refill < 3 seconds Heart tones S1 S2 present Rhythm is atrial pacer Chest pain is denied. Respiratory: Airway is patent Respiratory effort is even, unlabored, Respiratory pattern is regular, symmetrical, Breath sounds with crackles in right posterior middle lobe and right posterior lower lobe and left posterior lower lobe Breath sounds are diminished bilaterally. Derm: Skin is intact, Skin is dry, Skin is pink, warm & dry. Skin temperature is warm. 19:22 General: Verbal report given Mariann Grace RN.. kas2 Vital Signs: 10:35 BP 140 / 62; Pulse 64; Resp 20; Temp 99.4(O); Pulse Ox 100% on Non-rebreather mask; js13 Weight 72.57 kg; Height 5 ft. 10 in. (177.80 cm); Pain 0/10; 11:14 BP 113 / 59 (auto/); rs3 11:15 Pulse 72 MON; Pulse Ox 92% ; rs3 11:29 BP 107 / 59 (auto/); rs3 11:29 Pulse 72 MON; Pulse Ox 91% ; rs3 11:43 Pulse 70 MON; Pulse Ox 93% ; rs3 11:44 BP 118 / 57 (auto/); rs3 11:59 BP 116 / 58 (auto/); rs3 12:00 Pulse 60 MON; Pulse Ox 93% ; rs3 12:14 BP 126 / 59 (auto/); rs3 12:14 Pulse 64 MON; Pulse Ox 92% ; rs3 14:59 BP 127 / 71 (auto/); kas2 14:59 Pulse 70 MON; Pulse Ox 92% ; kas2 15:14 BP 124 / 76 (auto/); kas2 15:14 Pulse 68 MON; Pulse Ox 93% ; kas2 15:29 BP 133 / 75 (auto/); kas2 15:29 Pulse 72 MON; Pulse Ox 93% ; kas2 15:44 BP 138 / 75 (auto/); kas2 15:44 Pulse 74 MON; Pulse Ox 93% ; kas2 15:59 BP 131 / 71 (auto/); kas2 15:59 Pulse 70 MON; Pulse Ox 92% ; kas2 16:14 BP 139 / 75 (auto/); kas2 16:14 Pulse 74 MON; Pulse Ox 92% ; kas2 16:29 BP 118 / 57 (auto/); kas2 16:29 Pulse 72 MON; Pulse Ox 90% ; kas2 16:44 BP 146 / 75 (auto/); kas2 16:44 Pulse 72 MON; Pulse Ox 91% ; kas2 16:59 BP 161 / 84 (auto/); kas2 16:59 Pulse 72 MON; Pulse Ox 92% ; kas2 17:14 BP 146 / 96 (auto/); kas2 17:14 Pulse 76 MON; Pulse Ox 90% ; kas2 17:31 BP 132 / 88 (auto/); kas2 17:32 Pulse 44 MON; Pulse Ox 92% ; kas2 17:44 BP 130 / 59 (auto/); kas2 17:44 Pulse 82 MON; Pulse Ox 92% ; kas2 17:59 BP 120 / 75 (auto/); kas2 17:59 Pulse 82 MON; Pulse Ox 92% ; kas2 18:14 BP 128 / 58 (auto/); kas2 18:14 Pulse 80 MON; Pulse Ox 90% ; kas2 18:29 BP 117 / 64 (auto/); kas2 18:29 Pulse 80 MON; Pulse Ox 90% ; kas2 18:44 BP 117 / 69 (auto/); kas2 18:44 Pulse 88 MON; Pulse Ox 92% ; kas2 18:59 BP 117 / 68 (auto/); kas2 18:59 Pulse 74 MON; Pulse Ox 91% ; kas2 19:14 BP 113 / 66 (auto/); kas2 19:14 Pulse 80 MON; Pulse Ox 91% ; kas2 10:35 Body Mass Index 22.96 (72.57 kg, 177.80 cm) js13 Vitals: 10:30 Log In Time N/A - ambulance arrival. js13 ED Course: 10:18 Patient visited by Sho Oliver, Fruit Harvest Machine Operator. deg 10:18 Emily Davis,RN is Primary Nurse. deg 10:18 Patient moved to Waiting deg 10:18 Patient moved to 10 deg 10:27 Triage Initiated js13 10:31 The patient / caregiver is instructed regarding the plan of care and ED course. Cardiac js13 monitor on. Pulse ox on. NIBP on. 10:31 Maintain field IV. Dressing intact. Good blood return noted. Site clean & dry. Gauge & js13 site: 18 gauge in LFA. No procedures done that require assistance. 10:44 Patient visited by Emily Davis,NATASHA. js13 10:56 EKG done. (by ED staff). bnb 10:57 EKG done. bnb 10:58 Patient visited by Yadira Ku PCA. bnb 10:59 Brenda Bowman MD is Attending Physician. ml 10:59 Patient visited by Brenda Bowman MD. ml 11:06 Kelly Vazquez,NATASHA is Primary Nurse. rs3 11:37 Patient visited by Kelly Vazquez RN. rs3 11:37 B-Type Natiuretic Peptide Sent. rs3 11:38 -Arterial Blood Gas Sent. kjn 12:20 Patient visited by Kelly Vazquez,NATASHA. rs3 12:20 BLOOD CULTURES Sent. rs3 12:39 Chest, 1 View Returned. EDMS 13:04 Cole Mckeon is Hospitalizing Provider. ml 14:00 CT Chest Angio R/O PE Returned. EDMS 15:49 MD-[facility] [place] Payment Agreement was scanned into [email or web address] and attached to record. zo 15:58 Patient visited by Kelly Vazquez RN. rs3 16:54 Chest, 1 View Returned. EDMS 17:16 Patient visited by Kelly Vazquez RN. rs3 17:53 Patient visited by Kelly Vazquez RN. rs3 18:43 Patient visited by Kelly Vazquez RN. rs3 19:05 Patient visited by Mariann Troncoso RN. kas2 19:11 Patient moved to Admit Hold sls1 19:19 Patient visited by Mariann Troncoso RN. kas2 19:19 Patient moved to 20 sls1 19:19 Patient moved to Admit Hold sls1 19:22 Patient visited by Mariann Troncoso RN. kas2 19:23 Patient visited by Mariann Troncoso RN. kas2 20:54 EKG-ADULT Returned. EDMS 20:58 Primary Nurse role handed off by Emily Davis RN loraine 23:57 Primary Nurse role handed off by Kelly Vazquez RN loraine 12/16 10:02 T-Sheet-- Draft Copy was scanned into [email or web address] and attached to record. gb Administered Medications: 12/15 11:21 Drug: Albuterol 5 mg [albuterol sulfate 2.5 mg/0.5 mL solution for nebulization (1 mL)] kjn Route: Nebulizer; 11:21 Drug: Albuterol-Ipratropium 3 ml [ipratropium-albuterol 0.5 mg-3 mg(2.5 mg base)/3 mL kjn nebulization soln (3 mL)] Route: Inhalation; 13:59 Drug: cefTRIAXone 1 grams [ceftriaxone 1 gram solution for injection] Route: IVPB; rs3 Infused Over: 30 mins; Site: left forearm; 16:01 Follow up: IV Status: Completed infusion rs3 14:03 Drug: azithromycin 500 mg [azithromycin 500 mg intravenous solution] Route: IVPB; mk4 Infused Over: 1 hrs; Site: left antecubital; 16:01 Follow up: IV Status: Completed infusion rs3 RT: 11:22 Initial Med Neb Given as ordered. Respiratory: Breath sounds with crackles bilaterally. kjn in left posterior lower lobe and right posterior lower lobe Breath sounds are diminished bilaterally. 11:38 ABG's drawn from right brachial artery pressure held for 5 minutes no bleeding noted kjn specimen sent pt. tolerated well. Order Results: Lab Order: -Arterial Blood Gas; SPEC'M 12/15/16 11:21 Test: ABG pH (ARTERIAL); Value: 7.414; Range: 7.350-7.450; Units: UNITS; Status: F Test: ABG PARTIAL PRESSURE CO2; Value: 31.2; Range: 35.0-45.0; Abnormal: Below low normal; Units: mmHg; Status: F Test: ABG PARTIAL PRESSURE O2; Value: 64.9; Range: 75.0-100.0; Abnormal: Below low normal; Units: mmHg; Status: F Test: ABG TOTAL CO2; Value: 20.5; Range: 23.0-31.0; Abnormal: Below low normal; Units: MEQ/L; Status: F Test: ABG HCO3; Value: 19.5; Range: 22.0-26.0; Abnormal: Below low normal; Units: MEQ/L; Status: F Test: ABG BASE EXCESS; Value: -3.9; Range: -2.0-2.0; Abnormal: Below low normal; Status: F Test: ABG STANDARD HCO3; Value: 21.1; Range: 22.0-26.0; Abnormal: Below low normal; Units: MEQ/L; Status: F Test: ABG O2 SATURATION; Value: 92.1; Range: 95.0-99.0; Abnormal: Below low normal; Units: %; Status: F Test: ABG DEVICE; Value: NASAL CHRISTELLE; Status: F Lab Order: -Blood Culture; [facility] 12/15/16 11:25 Test: BLOOD CULTURE; Value: No growth after 24 hours . All specimens observed; Status: F Test: BLOOD CULTURE; Value: for 7 days. Results final at that time.; Status: F Lab Order: B-Type Natiuretic Peptide; [facility] 12/15/16 11:25 Test: BRAIN NATRIURETIC PEPTIDE; Value: 635; Range: <100; Abnormal: Above high normal; Units: PG/ML; Status: F Lab Order: Basic Metabolic Profile; [facility] 12/15/16 11:25 Test: GLUCOSE, FASTING; Value: 89; Range: 83-110; Units: MG/DL; Status: F Test: BLOOD UREA NITROGEN; Value: 20; Range: 7-18; Abnormal: Above high normal; Units: MG/DL; Status: F Test: CREATININE FOR GFR; Value: 0.98; Range: 0.70-1.30; Units: MG/DL; Status: F Test: GLOMERULAR FILTRATION RATE; Value: > 60.0; Range: >42; Status: F Test: SODIUM LEVEL; Value: 142; Range: 136-145; Units: MEQ/L; Status: F Test: POTASSIUM SERUM; Value: 4.5; Range: 3.5-5.1; Units: MEQ/L; Status: F Test: CHLORIDE LEVEL; Value: 105; Range: 98-107; Units: MEQ/L; Status: F Test: CARBON DIOXIDE LEVEL; Value: 25; Range: 21-32; Units: MEQ/L; Status: F Test: ANION GAP; Value: 12; Range: 8-16; Units: MEQ/L; Status: F Test: CALCIUM LEVEL; Value: 8.1; Range: 8.8-10.2; Abnormal: Below low normal; Units: MG/DL; Status: F Test Note: ; Units are mL/min/1.73 m2 Chronic Kidney Disease Staging per NKF: Stage I & II GFR >=60 Normal to Mildly Decreased Stage III GFR 30-59 Moderately Decreased Stage IV GFR 15-29 Severely Decreased Stage V GFR <15 Very Little GFR Left ESRD GFR <15 on MANAGER OF PRODUCTION Lab Order: CBC with Diff; SPEC'M 12/15/16 11:25 Test: WHITE BLOOD COUNT; Value: 8.6; Range: 4.0-10.0; Units: K/mm3; Status: F Test: RED BLOOD COUNT; Value: 4.03; Range: 4.30-6.10; Abnormal: Below low normal; Units: M/mm3; Status: F Test: HEMOGLOBIN; Value: 13.4; Range: 14.0-18.0; Abnormal: Below low normal; Units: g/dl; Status: F Test: HEMATOCRIT; Value: 39.9; Range: 42.0-52.0; Abnormal: Below low normal; Units: %; Status: F Test: MEAN CORPUSCULAR VOLUME; Value: 99.1; Range: 80.0-96.0; Abnormal: Above high normal; Units: fl; Status: F Test: MEAN CORPUSCULAR HEMOGLOBIN; Value: 33.2; Range: 27.0-33.0; Abnormal: Above high normal; Units: pg; Status: F Test: MEAN CORPUSCULAR HGB CONC; Value: 33.5; Range: 32.0-36.5; Units: g/dl; Status: F Test: RED CELL DISTRIBUTION WIDTH; Value: 12.6; Range: 11.5-14.5; Units: %; Status: F Test: PLATELET COUNT, AUTOMATED; Value: 223; Range: 150-450; Units: k/mm3; Status: F Test: NEUTROPHILS %; Value: 72.0; Range: 36.0-66.0; Abnormal: Above high normal; Units: %; Status: F Test: LYMPH %; Value: 13.4; Range: 24.0-44.0; Abnormal: Below low normal; Units: %; Status: F Test: MONO %; Value: 8.3; Range: 0.0-5.0; Abnormal: Above high normal; Units: %; Status: F Test: EOS %; Value: 3.9; Range: 0.0-3.0; Abnormal: Above high normal; Units: %; Status: F Test: BASO %; Value: 0.3; Range: 0.0-1.0; Units: %; Status: F Test: LARGE UNSTAINED CELL %; Value: 2.2; Range: 0.0-4.0; Units: %; Status: F Test: NEUTROPHILS #; Value: 6.2; Range: 1.8-7.7; Units: K/mm3; Status: F Test: LYMPH #; Value: 1.3; Range: 1.5-4.5; Abnormal: Below low normal; Units: K/mm3; Status: F Test: MONO #; Value: 0.7; Range: 0.0-0.8; Units: K/mm3; Status: F Test: EOS #; Value: 0.3; Range: 0.0-0.50; Units: K/mm3; Status: F Test: BASO #; Value: 0.0; Range: 0.0-0.2; Units: K/mm3; Status: F Test: LARGE UNSTAINED CELL #; Value: 0.2; Range: 0.0-0.4; Units: K/mm3; Status: F Lab Order: Cardiac Injury Profile; SPEC'M 12/15/16 11:25 Test: CPK CREATINE PHOSPHOKINASE; Value: 71; Range: 39-308; Units: U/L; Status: F Test: CK-MB VALUE MASS; Value: 2.3; Range: 0.0-3.6; Units: NG/ML; Status: F Test: MB/CK RELATIVE INDEX; Value: 3.23; Range: < OR =4; Status: F Test Note: ; DIAGNOSIS CRITERIA MMB ng/ml Relative Index (RI) NON-AMI < or = 5 N/A [place] > 5 < or = 4 AMI > 5 > 4 Lab Order: Troponin; 12/15/16 11:25 Test: TROPONIN I; Value: < 0.02; Range: < 0.10; Units: NG/ML; Status: F Test Note: ; Troponin I Reference Interval for [facility] LOCI: 99th Percentile= 0.00-0.045 ng/ml Risk Stratification: <= 0.10 ng/ml Decreased Risk for Adverse Clinical Events. 0.10-1.50 ng/ml Increased Risk for Adverse Clinical Events. Evaluation of additional criterion and/or repeat testing in 2-6 hours is suggested to rule out myocardial damage. >= 1.50 ng/ml Indicative of Myocardial Injury. Lab Order: Sputum Culture & Gram Stain: assisted pt obtaining - next to sink; 12/15/16 16:15 Test: GRAM STAIN; Value: GRAM STAIN RESULT; Status: F Test: GRAM STAIN; Value: QUALITY: GOOD; Status: F Test: GRAM STAIN; Value: MODERATE WBCS; Status: F Test: GRAM STAIN; Value: FEW EPITHELIAL CELLS; Status: F Test: GRAM STAIN; Value: FEW GRAM POSITIVE COCCI; Status: F Test: GRAM STAIN; Value: FEW GRAM POSITIVE RODS; Status: F Test: GRAM STAIN; Value: FEW GRAM NEGATIVE RODS; Status: F Lab Order: CBC WITH DIFFERENTIAL; 12/16/16 07:19 Test: WHITE BLOOD COUNT; Value: 6.3; Range: 4.0-10.0; Units: K/mm3; Status: F Test: RED BLOOD COUNT; Value: 4.51; Range: 4.30-6.10; Units: M/mm3; Status: F Test: HEMOGLOBIN; Value: 14.8; Range: 14.0-18.0; Units: g/dl; Status: F Test: HEMATOCRIT; Value: 44.3; Range: 42.0-52.0; Units: %; Status: F Test: MEAN CORPUSCULAR VOLUME; Value: 98.1; Range: 80.0-96.0; Abnormal: Above high normal; Units: fl; Status: F Test: MEAN CORPUSCULAR HEMOGLOBIN; Value: 32.8; Range: 27.0-33.0; Units: pg; Status: F Test: MEAN CORPUSCULAR HGB CONC; Value: 33.5; Range: 32.0-36.5; Units: g/dl; Status: F Test: RED CELL DISTRIBUTION WIDTH; Value: 12.5; Range: 11.5-14.5; Units: %; Status: F Test: PLATELET COUNT, AUTOMATED; Value: 245; Range: 150-450; Units: k/mm3; Status: F Test: NEUTROPHILS %; Value: 84.6; Range: 36.0-66.0; Abnormal: Above high normal; Units: %; Status: F Test: LYMPH %; Value: 12.0; Range: 24.0-44.0; Abnormal: Below low normal; Units: %; Status: F Test: MONO %; Value: 2.2; Range: 0.0-5.0; Units: %; Status: F Test: EOS %; Value: 0.7; Range: 0.0-3.0; Units: %; Status: F Test: BASO %; Value: 0.0; Range: 0.0-1.0; Units: %; Status: F Test: LARGE UNSTAINED CELL %; Value: 0.6; Range: 0.0-4.0; Units: %; Status: F Test: NEUTROPHILS #; Value: 5.3; Range: 1.8-7.7; Units: K/mm3; Status: F Test: LYMPH #; Value: 0.8; Range: 1.5-4.5; Abnormal: Below low normal; Units: K/mm3; Status: F Test: MONO #; Value: 0.1; Range: 0.0-0.8; Units: K/mm3; Status: F Test: EOS #; Value: 0.0; Range: 0.0-0.50; Units: K/mm3; Status: F Test: BASO #; Value: 0.0; Range: 0.0-0.2; Units: K/mm3; Status: F Test: LARGE UNSTAINED CELL #; Value: 0.0; Range: 0.0-0.4; Units: K/mm3; Status: F Lab Order: COMPLETE COMPHRENSIVE METABOLI; SPEC'M 12/16/16 07:19 Test: GLUCOSE, FASTING; Value: 137; Range: 83-110; Abnormal: Above high normal; Units: MG/DL; Status: F Test: BLOOD UREA NITROGEN; Value: 18; Range: 7-18; Units: MG/DL; Status: F Test: CREATININE FOR GFR; Value: 0.97; Range: 0.70-1.30; Units: MG/DL; Status: F Test: GLOMERULAR FILTRATION RATE; Value: > 60.0; Range: >42; Status: F Test: SODIUM LEVEL; Value: 139; Range: 136-145; Units: MEQ/L; Status: F Test: POTASSIUM SERUM; Value: 4.5; Range: 3.5-5.1; Units: MEQ/L; Status: F Test: CHLORIDE LEVEL; Value: 103; Range: 98-107; Units: MEQ/L; Status: F Test: CARBON DIOXIDE LEVEL; Value: 27; Range: 21-32; Units: MEQ/L; Status: F Test: ANION GAP; Value: 9; Range: 8-16; Units: MEQ/L; Status: F Test: CALCIUM LEVEL; Value: 8.5; Range: 8.8-10.2; Abnormal: Below low normal; Units: MG/DL; Status: F Test: AST/SGOT; Value: 16; Range: 15-37; Units: U/L; Status: F Test: ALT/SGPT; Value: 18; Range: 12-78; Units: U/L; Status: F Test: ALKALINE PHOSPHATASE; Value: 59; Range: 45-117; Units: U/L; Status: F Test: BILIRUBIN,TOTAL; Value: 0.4; Range: 0.2-1.0; Units: MG/DL; Status: F Test: TOTAL PROTEIN; Value: 6.4; Range: 6.4-8.2; Units: GM/DL; Status: F Test: ALBUMIN; Value: 2.7; Range: 3.2-5.2; Abnormal: Below low normal; Units: GM/DL; Status: F Test: ALBUMIN/GLOBULIN RATIO; Value: 0.73; Range: 1.00-1.93; Abnormal: Below low normal; Status: F Test Note: ; Units are mL/min/1.73 m2 Chronic Kidney Disease Staging per NKF: Stage I & II GFR >=60 Normal to Mildly Decreased Stage III GFR 30-59 Moderately Decreased Stage IV GFR 15-29 Severely Decreased Stage V GFR <15 Very Little GFR Left ESRD GFR <15 on MANAGER OF PRODUCTION Radiology Order: EKG-ADULT Test: EKG-ADULT REASON FOR EXAMINATION: Shortness of Breath; Stationary ECG Study; [facility] - ED; ; Test Date: 2016-12-15; Pat Name: CARMINA OSEGUERA Department:; Room: -; Gender: M 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 Widespread metastatic disease on PET/CT and abnormal; CT chest recently.; ; Multilead AICD pacer again seen and unchanged. Left ventricular configuration of; the heart without gross cardiomegaly. There is a right lateral pleural; collection, new since the 12/02/2016 study, present and smaller on the PET/CT; 12/10/2016. This suggests loculated pleural effusion. Nodular interstitial; infiltrates throughout the right lung with diffuse fibrotic changes on the left.; There is a supraclavicular mass on the right. The aorta is calcified at the; arch, mildly tortuous without aneurysm. Airway intact. There are clips at the; right neck base from prior thyroid surgery.; ; IMPRESSION:; ; 1. Left ventricular configuration of the heart without david edema. Multilead; AICD pacer, unchanged.; ; 2. New since CT of 2 weeks ago but seen on last week's PET/CT, is a right; lateral base pleural density consistent with loculated pleural fluid collection.; The diffuse nodular interstitial infiltrates in the right lung and lesser; underlying interstitial changes of the left lung noted. The nodules on the right; are less apparent than they are by CT and PET/CT recently.; ; ; Signed by; Tom Head MD 12/15/2016 04:23 P; Radiology Order: CT Chest Angio R/O PE Test: CT Chest Angio R/O PE REASON FOR EXAMINATION: sob, cough, r/o pe abnorm cxr; CT pulmonary angiogram: With IV contrast.; ; History: Shortness of breath, cough, question pulmonary embolism. Abnormal; chest x-ray.; ; Comparison studies: Comparison chest CT study December 02, 2016.; ; Contrast dose: 75 cc's of Isovue 370 are administered intravenously.; ; CT technique: Helical scanning is acquired and overlapping 1.5 mm and contiguous; 3 mm axial images are reformatted. In addition, a 3-D work station is deployed; to generate thick slab maximum intensity projection images in sagittal and; coronal imaging projections.; ; CT pulmonary angiographic findings: There is good opacification of the pulmonary; arterial tree and there is no CT evidence of pulmonary embolism. The thoracic; aorta shows multifocal vascular calcification but is otherwise intact. There is; a pacemaker in place. There is a loculated appearing right pleural effusion with; a enlarging collection along the right lateral chest wall increased in size from; the recent PET/CT study December 10, 2016. There is also a component of this; posteriorly and medially which is enlarged since the December 10, 2016 study as; well. There is fairly bulky mediastinal and right hilar lymphadenopathy. This; has progressed in the extent and size since the December 02, 2016 study. There is; evidence of COPD. Multiple pulmonary nodules consistent with metastatic disease; are seen. These nodules are more pronounced than on the 12/02/2016 study.; ; Impression:; ; 1. Progressive multi-loculated appearing right pleural effusion.; ; 2. Progressive pulmonary metastatic disease.; ; 3. Progressive mediastinal and right hilar lymphadenopathy.; ; 4. No CT evidence of pulmonary embolism.; ; ; Signed by; Hossein Peguero MD 12/15/2016 02:35 P; Outcome: 13:04 Decision to Hospitalize by Provider. 12/16 12:17 Patient left the ED. kcs Signatures: Dispatcher [employer] EDMS Brenda Bowman MD MD ml Dennise Merino, RN RN kcs Sho Oliver, Fruit Harvest Machine Operator Unit deg Nhi Carranza, Reg Reg gb Steven, Kelly Raymundo,RN RN rs3 Shelia Pulido, DATE NIGHT SITTER DATE NIGHT SITTER loraine [place] RN RN sls1 Emily DavisRN RN js13 Deedee Tang Margaret RN RN mk4 Mariann TroncosoRN RN [facility] Yadira Ku, DATE NIGHT SITTER DATE NIGHT SITTER bnb Corrections: (The following items were deleted from the chart) 12/15 11:04 10:30 Cardiovascular: Chest pain is denied js13 11:05 10:30 PSHx: defibrillator insertion; MTDD
--- NOTE | 2016-12-16 12:18 | EDDOCDS ---
Physician Documentation [facility] Name: Kasi Oseguera Age: 76 yrs Sex: Male : 1940 Arrival Date: 12/15/2016 Time: 10:17 Bed Admit Hold Private MD: Disposition: 12/15 13:04 Critical Care:. ml Disposition: 12/15/16 13:04 Hospitalization ordered by Cole Mckeon for Inpatient Admission. Preliminary diagnosis are Pneumonia, unspecified organism, Dyspnea. - Bed requested for PCU. - Status is Inpatient Admission. kcs - Condition is Stable. - Problem is new. - Symptoms are unchanged. Historical: - Allergies: no known allergies; - Home Meds: 1. Calcium + Vitamin D 600 mg calcium- 200 unit oral tab 2. levothyroxine 125 mcg oral tab once daily 3. sotalol 80 mg Oral tab 1 tab 2 times per day 4. lisinopril 2.5 mg Oral tab 1 tab once daily 5. atorvastatin 10 mg oral tab 1 tab once daily 6. Lasix 20 mg Oral tab 1 tab once daily 7. Combivent 18-103 mcg/actuation Inhl aero 2 puffs 4 times per day 8. Incruse Ellipta 62.5 mcg/actuation inhalation dsdv 1 puff once daily 9. albuterol sulfate 90 mcg/actuation Inhl HFAA every 6 hours - PMHx: COPD; Hypercholesterolemia; Hypertension; Hypothyroidism; - PSHx: Thyroidectomy; Prostatectomy; AICD insertion; - Family history: Not pertinent. - Social history: Smoking status: Patient states former smoker of tobacco. No barriers to communication noted, The patient speaks fluent Ethiopian. - : The pt / caregiver states he / she is not on anticoagulants. Home medication list is obtained from the patient. - Exposure Risk Screening:: None identified. Vital Signs: 10:35 BP 140 / 62; Pulse 64; Resp 20; Temp 99.4(O); Pulse Ox 100% on Non-rebreather mask; js13 Weight 72.57 kg / 159.99 lbs; Height 5 ft. 10 in. (177.80 cm); Pain 0/10; 11:14 BP 113 / 59 (auto/); rs3 11:15 Pulse 72 MON; Pulse Ox 92% ; rs3 11:29 BP 107 / 59 (auto/); rs3 11:29 Pulse 72 MON; Pulse Ox 91% ; rs3 11:43 Pulse 70 MON; Pulse Ox 93% ; rs3 11:44 BP 118 / 57 (auto/); rs3 11:59 BP 116 / 58 (auto/); rs3 12:00 Pulse 60 MON; Pulse Ox 93% ; rs3 12:14 BP 126 / 59 (auto/); rs3 12:14 Pulse 64 MON; Pulse Ox 92% ; rs3 14:59 BP 127 / 71 (auto/); kas2 14:59 Pulse 70 MON; Pulse Ox 92% ; kas2 15:14 BP 124 / 76 (auto/); kas2 15:14 Pulse 68 MON; Pulse Ox 93% ; kas2 15:29 BP 133 / 75 (auto/); kas2 15:29 Pulse 72 MON; Pulse Ox 93% ; kas2 15:44 BP 138 / 75 (auto/); kas2 15:44 Pulse 74 MON; Pulse Ox 93% ; kas2 15:59 BP 131 / 71 (auto/); kas2 15:59 Pulse 70 MON; Pulse Ox 92% ; kas2 16:14 BP 139 / 75 (auto/); kas2 16:14 Pulse 74 MON; Pulse Ox 92% ; kas2 16:29 BP 118 / 57 (auto/); kas2 16:29 Pulse 72 MON; Pulse Ox 90% ; kas2 16:44 BP 146 / 75 (auto/); kas2 16:44 Pulse 72 MON; Pulse Ox 91% ; kas2 16:59 BP 161 / 84 (auto/); kas2 16:59 Pulse 72 MON; Pulse Ox 92% ; kas2 17:14 BP 146 / 96 (auto/); kas2 17:14 Pulse 76 MON; Pulse Ox 90% ; kas2 17:31 BP 132 / 88 (auto/); kas2 17:32 Pulse 44 MON; Pulse Ox 92% ; kas2 17:44 BP 130 / 59 (auto/); kas2 17:44 Pulse 82 MON; Pulse Ox 92% ; kas2 17:59 BP 120 / 75 (auto/); kas2 17:59 Pulse 82 MON; Pulse Ox 92% ; kas2 18:14 BP 128 / 58 (auto/); kas2 18:14 Pulse 80 MON; Pulse Ox 90% ; kas2 18:29 BP 117 / 64 (auto/); kas2 18:29 Pulse 80 MON; Pulse Ox 90% ; kas2 18:44 BP 117 / 69 (auto/); kas2 18:44 Pulse 88 MON; Pulse Ox 92% ; kas2 18:59 BP 117 / 68 (auto/); kas2 18:59 Pulse 74 MON; Pulse Ox 91% ; kas2 19:14 BP 113 / 66 (auto/); kas2 19:14 Pulse 80 MON; Pulse Ox 91% ; kas2 10:35 Body Mass Index 22.96 (72.57 kg, 177.80 cm) js13 MDM: 10:35 ECG WITH READING ER PHYS+CARDIAG ordered. EDMS 11:10 -Blood Culture (Adults Only), peripheral from different site, or from device/port/PICC ml etc. if present ordered. 11:10 Manager Branch/Pulse Ox/q 15 min VS ordered. ml 11:10 IV Saline Lock ordered. ml 11:10 Oxygen at 4L/Min NC or Home dosage ordered. ml 11:10 Rhythm Strip to chart ordered. ml 11:10 Albuterol 5 mg Nebulizer once ordered. ml 11:10 Albuterol-Ipratropium 3 ml Inhalation once ordered. ml 11:10 Call Respiratory ordered. ml 11:11 -Arterial Blood Gas Ordered. EDMS 11:11 B-Type Natiuretic Peptide Ordered. EDMS 11:11 Basic Metabolic Profile Ordered. EDMS 11:11 CBC with Diff Ordered. EDMS 11:11 Cardiac Injury Profile Ordered. EDMS 11:11 Troponin Ordered. EDMS 11:11 -Blood Culture Ordered. EDMS 11:11 Call Respiratory complete. js13 11:11 Chest, 1 View Ordered. EDMS 11:46 -Blood Culture (Adults Only), peripheral from different site, or from device/port/PICC deg etc. if present complete. 11:47 BLOOD CULTURES Ordered. EDMS 12:42 -Arterial Blood Gas Reviewed. ml 12:42 B-Type Natiuretic Peptide Reviewed. ml 12:42 Basic Metabolic Profile Reviewed. ml 12:42 CBC with Diff Reviewed. ml 12:42 Cardiac Injury Profile Reviewed. ml 12:42 Troponin Reviewed. ml 12:42 Chest, 1 View Reviewed. ml 12:43 BED REQUEST+ADM ordered. EDMS 12:44 CT Chest Angio R/O PE Ordered. EDMS 12:44 cefTRIAXone 1 grams IVPB once over 30 mins; dilute in 50mL of NS or D5W ordered. ml 12:44 azithromycin 500 mg IVPB once over 1 hrs; dilute in 250mL of D5W or NS ordered. ml 14:38 Sputum Culture & Gram Stain: assisted pt obtaining - next to sink Ordered. EDMS 14:57 LOW FAT LOW CHOLESTEROL DIET ordered. EDMS 15:04 Admission / Observation Status ordered. EDMS 15:30 CT Chest Angio R/O PE Reviewed. ml 15:46 Financial registration complete. zo 15:49 [facility] Payment Agreement was scanned into [employer] and attached to record. zo 19:31 CBC WITH DIFFERENTIAL Ordered. EDMS 19:32 COMPLETE COMPHRENSIVE METABOLI Ordered. EDMS 02 08:24 CBC WITH DIFFERENTIAL Reviewed. gk1 08:24 COMPLETE COMPHRENSIVE METABOLI Reviewed. gk1 08:24 EKG-ADULT Reviewed. gk1 08:24 Chest, 1 View Reviewed. gk1 10:02 T-Sheet-- Draft Copy was scanned into [employer] and attached to record. gb 10:12 ECHOCARD,DOPPLER/COLOR FLOW ordered. EDMS Administered Medications: 12/15 11:21 Drug: Albuterol 5 mg [albuterol sulfate 2.5 mg/0.5 mL solution for nebulization (1 mL)] kjn Route: Nebulizer; 11:21 Drug: Albuterol-Ipratropium 3 ml [ipratropium-albuterol 0.5 mg-3 mg(2.5 mg base)/3 mL kjn nebulization soln (3 mL)] Route: Inhalation; 13:59 Drug: cefTRIAXone 1 grams [ceftriaxone 1 gram solution for injection] Route: IVPB; rs3 Infused Over: 30 mins; Site: left forearm; 16:01 Follow up: IV Status: Completed infusion rs3 14:03 Drug: azithromycin 500 mg [azithromycin 500 mg intravenous solution] Route: IVPB; mk4 Infused Over: 1 hrs; Site: left antecubital; 16:01 Follow up: IV Status: Completed infusion rs3 Critical Care Time: 13:04 Critical care time: Bedside Care: 90 minutes, Consultation: 10 minutes. Total time: 100 ml minutes Signatures: Dispatcher [facility] EDHI Brenda Bowman MD MD ml Sleeman, Kacey, RN RN Sho Walker, Manager Cable Unit deg Nhi Carranza, Reg Reg gb Steven, Emily OrellanaRN RN js13 Isabella Reece RN RN [facility] Antwon Ash 1 Kelly Vazquez RN rs3 Deedee Tang Margaret RN mk4 The chart was reviewed and I authenticate all verbal orders and agree with the evaluation and treatment provided.Corrections: (The following items were deleted from the chart) 11:05 10:30 PSHx: defibrillator insertion; js13 js13 Attachments: 15:49 [facility] Payment Agreement zo 12/16 10:02 T-Sheet-- Draft Copy gb MTDD
[2016-12-16] MEDS: LISINOPRIL *2.5 MG* TAB PO SCH (12:44)
[2016-12-16] MEDS ORDERED: cefTRIAXone SOD 1 GM in D5W MINI-BAG PLUS 50 ML IV SCH (13:00)
[2016-12-16] MEDS ORDERED: AZITHROMYCIN INJ 500 MG, VIAL MATE ADAPTER 1 EACH in D5W 250 ML IV SCH (14:00)
[2016-12-16] MEDS ORDERED: MIDAZOLAM INJ 2 MG/2 ML VIAL (J2250) As Ordered ONE (14:26)
[2016-12-16] MEDS ORDERED: LIDOCAINE 1% MDV 20ML VIAL As Ordered ONE (14:27)
[2016-12-16] MEDS ORDERED: FLUMAZENIL 0.5 MG/5 ML VIAL As Ordered ONE (14:27)
[2016-12-16] MEDS ORDERED: MIDAZOLAM INJ 2 MG/2 ML VIAL (J2250) IV STA (15:29)
[2016-12-16] MEDS ORDERED: LIDOCAINE 1% MDV 20ML VIAL SQ ONE (15:30)
[2016-12-16] MEDS ORDERED: BISACODYL 10 MG SUPP PR PRN (15:45)
[2016-12-16] MEDS ORDERED: ONDANSETRON 4MG/2ML VIAL (J2405) IV PRN (15:45)
[2016-12-16] MEDS ORDERED: ACETAMINOPHEN TAB 650MG DOSE (2X325MG) PO PRN (15:45)
[2016-12-16] MEDS ORDERED: NORCO, ANEXSIA 5/325MG TABLET (HYDROcodone/ACETAMINOPHEN) PO PRN (15:45)
[2016-12-16] MEDS ORDERED: PERCOCET 5MG/325MG TAB PO PRN ×2 (15:45)
[2016-12-16] MEDS ORDERED: LEVALBUTEROL 1.25 MG/0.5 ML CONCENTRATE NEB NEB PRN (15:45)
[2016-12-16] MEDS: MOM 30ML SUSPENSION UDC PO SCH (16:24)
[2016-12-16] MEDS: PANTOPRAZOLE 40MG TAB (PROTONIX) PO SCH (16:25)
--- NOTE | 2016-12-16 16:40 | IPN ---
DATE: 12/16/2016 Mr. Oseguera has finally been brought from the emergency room after spending a whole night there. He is still complaining of shortness of breath. He was seen by Dr. Lopez. Both he and I have gone over the PET scan and CT scans. His vital signs show a maximum temperature (T max) of 97.5 with a heart rate that ranges between 50 and 73 and is sinus rhythm, respiratory rate of 18-22 without the use of accessory muscles, who is 98 to 91% saturated on 2-4 liters nasal cannula. Blood pressure is ranging between 142/78 to 103/63. His intake and output over the past 24 hours has been recorded as 300 in and 1000 out for a negativity of 700 mL. He weighs 73.6 kg today, which is the same as he did yesterday in the emergency room. Today, he has taken in 1440 mL with an outpatient of 900 mL, making positive 540 mL. On physical examination, he has decreased breath sounds on the right side. Percussion note is full to the diaphragm. I hear very distant breath sounds on either side. He does have some inspiratory rales very faintly at the right base. Cardiac exam is without murmurs, clicks, gallops or rubs. I cannot feel his point of maximum impulse (PMI). S1, S2 are normal. Abdomen is soft and nontender. Bowel sounds are positive. There is no hepatomegaly. No costovertebral angle tenderness. Extremities show no pretibial edema. No calf tenderness. No differential swelling of the upper extremities. His skin is warm, dry and perfused without cyanosis or mottling, including that of the nail beds and the knees. Neck is supple. There is no jugular venous distention, no subcutaneous emphysema. Trachea is midline. Mouth shows his mucous membranes to be pink and moist. Lips and commissures without lesions. There is no thrush. Eyes show his pupils to be equal and reactive. Extraocular motions intact. Sclerae anicteric. Neurologic shows II-XII intact along with gross motor and gross sensation intact. Gait is not tested. Psychiatric shows him to be awake and alert, oriented times three with appropriate mood and affect and conversational. Lymphatics show a large supraclavicular mass on the right side, nothing on the left side. There is no cervical lymphadenopathy, no axillary lymphadenopathy. His white count today is 6.3 with a hemoglobin and hematocrit of 14.8 and 44.3, improved from 13.4 and 39.9 yesterday. This may be secondary to his hemoconcentration. Platelet count is 245 and differential shows 84% neutrophils, 12% lymphocytes, 2% monocytes. There are no immature forms. No toxic granulations. His chemistries show normal electrolytes with a BUN and creatinine of 18 and 0.97, a glucose of 137 and a calcium of 8.5. Liver functions are normal with an AST and ALT of 16 and 18 respectively. Albumin is 2.7. His PT/INR on 11/11/2016 was 13.5 and 1.02 respectively with a PTT of 29.7. IMPRESSION: 1. Loculated pleural effusion. 2. Widely metastatic anaplastic thyroid carcinoma. 3. Hypertension. 4. Chronic obstructive pulmonary disease (COPD). 5. Hyperlipidemia. 6. Hypothyroidism. PLAN AND DISCUSSION: He has gotten more short of breath over the last week with the appearance of a new pleural effusion. I suspect this pleural effusion is malignant. I will drain him. I suspect there is about 500-750 mL in the pleural effusion itself. After draining him, we will send it for all the requisite chemistries, cell counts, cultures and cytologies. If this is accumulating so quickly, right now I am loath to do a talc pleurodesis. He has seen Dr. Lopez today, and we ought to arrange for him to see Dr. Feldman as soon as he is out of the hospital for chemotherapy.
--- NOTE | 2016-12-16 17:23 | CR ---
DATE OF CONSULTATION: 12/15/2016 REFERRING PHYSICIAN: Mr. Hurtado is seen at the request of the hospitalist service. REASON FOR CONSULTATION: Shortness of breath and a pleural effusion. HISTORY OF PRESENT ILLNESS: The patient is a 76-year-old white male who complains of increasing shortness of breath over the last three or four days. His shortness of breath has progressed to such that he has to sit up in bed and he is short of breath at rest. He first noticed this a few days ago. This has been accompanied by cough, but he has not been able to expectorate sputum, rather swallows it. He does not complain of chest pain or chest discomfort. There have been no fever, chills or sweats and no night sweats. There is no exposure to tuberculosis. There is no dysphagia and he states that he has been able to maintain his weight. He has previous history of thyroid cancer where he has had both lobes of his thyroid removed. 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 Most recently in the last week he has noticed and increasing growth which has grown very rapidly in his right supraclavicular fossa. This was evidently biopsied and was shown to be metastatic thyroid carcinoma. A chest x-ray and chest CT done showed a pleural effusion. PAST MEDICAL HISTORY: Chronic obstructive pulmonary disease (COPD). Hypertension. 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 Hyperlipidemia. Congestive heart failure. Status post hepatitis. PAST SURGICAL HISTORY: The above now complete thyroidectomy. Automatic implantable cardioverter-defibrillator (AICD) insertion. HABITS: Smoked up to 3 packs per day, but quit in 1997. Had a problem drinking about 10 years ago but now completely abstains from alcohol. 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 TRAVEL HISTORY: He has been to the [facility]. 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 He was never deployed overseas. EXPOSURES: No dogs, cats or birds at home. PAST HOSPITALIZATIONS: Evidently in 1998 he underwent a tracheostomy when he had hepatitis which was accompanied by respiratory failure. It was at that time he decided to stop smoking. REVIEW OF SYSTEMS: Constitutional: Without fever, chills, sweats or night sweats. Without weight loss. Eyes: Without transient monocular blindness, diplopia, or prior jaundice. Nose: Without epistaxis. Mouth: Has false teeth. Pulmonary: See HPI. Cardiac: Evidently carries a diagnosis of congestive heart failure. He had an AICD placed. He states he has never had a heart attack. Without peripheral edema. Without intermittent claudication. Gastrointestinal (GI): Without nausea, vomiting, diarrhea or constipation, melena, hematochezia, or hematemasis. Without abdominal pain. Genitourinary (): Without hematuria, dysuria, or prior history of kidney stones. Endocrine: Without diabetes, with hypothyroidism. Neurologic: Without paresthesias, paralysis or seizures. Lymphatics: Without lumps, bumps in his left neck or his axilla. Has noticed a supraclavicular mass over the last two weeks. Psychiatric: Without pathologic anxieties, depression, or psychoses. INVESTIGATIONS: His white count is at 8.6 with hemoglobin and hematocrit of 13.4 and 39.9 respectively. Platelet count is 223. His differential shows 72% neutrophils, 13% lymphocytes, 8% monocytes. There are no immature forms, no toxic granulations. His electrolytes are normal with a BUN and creatinine of 20 and 0.98 respectively. Glucose is 89 with a calcium 8.1. Troponin is less than 0.02. His B-natriuretic peptide is 635. His blood gases show a pH of 7.41, a pCO2 of 31 and a pO2 of 64, with a base excess of -3.9. His chest x-ray done portably shows a right sided pleural effusion. He has a reticular pattern in the right lung throughout. This pleural effusion was not present on a chest CT done on 11/12/2016. His chest CT done yesterday under CT angio protocol did not show a pulmonary embolism. It does show a moderate pleural effusion which looks to be loculated with one portion in the upper superior portion of the chest and the other posterolaterally. I do think, however, they may be connected. His reticular pattern on the chest x-ray is secondary to the major emphysematous changes that he has throughout. There are also a number of nodules within the lung itself in both the left and right side. These are essentially too numerous too count particularly on the left hand side. There is compression atelectasis and/or consolidation around the pleural effusion. The adrenals look intact. I do not see any liver lesions. He does have a paratracheal mediastinal lymphadenopathy and right and left hilar lymphadenopathy, more on the right than the left. There is periaortic lymphadenopathy and AP window lymphadenopathy. His PET/CT on 12/10/2016 at [facility] shows multiple uptake throughout his body mostly in the lungs and mediastinum. There are also numerous rib lesions and skeletal lesions. The large supraclavicular mass lights up very brightly. There is mediastinal uptake. There is rib uptake. There are nodules on the distal pleural surface adjacent to the pleural effusion. He has lesions throughout his ribs particularly on the right hand side. I see uptake in the lower arms, lower radius, however, that may be the injection site. Upon closer inspection it looks as though he has uptake at the base of the thumb. His echocardiogram done on 12/11/2016 showed diastolic dysfunction with preserved left ventricular systolic function. The aortic valve had mild insufficiency as did the mitral valve. There was severe tricuspid insufficiency. He had moderately severe pulmonary hypertension. His left ventricular ejection fraction was estimated between 50 and 55%. His latest pathology done on November 27 of this year of the right supraclavicular node showed metastatic undifferentiated carcinoma consistent with thyroid primary, i.e. anaplastic thyroid carcinoma. His prior biopsies have shown metastatic papillary carcinoma. IMPRESSION: 1. Right pleural effusion, probably malignant. 2. Widely metastatic anaplastic thyroid carcinoma. 3. Shortness of breath secondary to the pleural effusion. 4. Possible right lower lobe pneumonia although I am doubtful. 5. Hypothyroidism secondary to the iatrogenic removal of his thyroid. 6. Congestive heart failure (CHF). 7. Status post AICD insertion. 8. COPD. 9. Hypertension. 10. Hyperlipidemia. PLAN AND DISCUSSION: He is in the emergency room now and I will place a chest tube when he gets to the floor. I suspect there is about 500 to 700 mL of fluid in there. I would not be surprised if it is hemorrhagic. He certainly has metastatic foci on the pleura adjacent to the pleural effusion. He is going to see Dr. Lopez tomorrow for palliative radiation of the supraclavicular mass.
--- NOTE | 2016-12-16 18:06 | RO ---
DATE OF PROCEDURE: 12/16/2016 PREPROCEDURE DIAGNOSIS: Right loculated pleural effusion. POSTPROCEDURE DIAGNOSIS: Right loculated pleural effusion. PROCEDURE: Insertion of right lateral chest tube. SURGEON: Dr. Sharif Mills SHIPPING AND RECEIVING ASSISTANT: ANESTHESIA: DESCRIPTION OF PROCEDURE: Under satisfactory moderate sedation achieved with 2 mg of Versed, the patient was prepped and draped in the usual sterile fashion. The skin and subcutaneous tissue and pleura overlying the approximate seventh rib was then infiltrated with 1% Xylocaine. Incision was made and a tunnel was created in the chest into the sixth intercostal space. A #24 chest tube was placed without difficulty, which resulted in 1200 mL of serous fluid eluded from the chest. Chest tube was secured to the chest wall with a #2 Tevdek suture and connected to the Pleur-evac. The patient tolerated the procedure well and a chest x-ray is pending.
[2016-12-16 18:30] LABS: RBC PLEURAL FLUID < 10 (<10mm3 cells/uL); TNC PLEURAL FLUID 3626 cells/uL (0-20)
[2016-12-16 18:32] LABS: BF DIFF IF INDICATED? YES (NO)
[2016-12-16 18:34] LABS: LDH, BODY FLUID 2337 U/L (NOT ESTABLISHED); TOTAL PROTEIN, BODY FLUID 3.8 G/DL (NOT ESTABLISHED)
[2016-12-16] MEDS ORDERED: LEVALBUTEROL 1.25 MG/0.5 ML CONCENTRATE NEB NEB SCH (20:00)
[2016-12-16 20:10] LABS: CC BF DIFF EXAM CYTOCENTRIFUGE
[2016-12-16] MEDS: DOCUSATE SODIUM 100 MG CAP PO SCH (20:36)
[2016-12-16] MEDS: methylPREDNISolone INJ 40 MG/1 ML VIAL (J2920) IV SCH (20:36)
[2016-12-16] MEDS: ATORVASTATIN 10 MG TAB PO SCH (20:36)
[2016-12-17] MEDS: IPRATROPIUM 0.5MG/ALBUTEROL 2.5MG INH SOL UD 3ML (DUONEB)(J7620) NEB SCH ×4 (01:29→21:30)
[2016-12-17 04:00] VITALS: BP 134/76
[2016-12-17] MEDS: methylPREDNISolone INJ 40 MG/1 ML VIAL (J2920) IV SCH ×2 (04:58→12:00)
[2016-12-17 05:44] LABS: EOS % 0.2 % (0.0-3.0); LARGE UNSTAINED CELL # 0.1 K/mm3 (0.0-0.4); LARGE UNSTAINED CELL % 0.8 % (0.0-4.0); LYMPH # 1.1 K/mm3 (1.5-4.5); LYMPH % 7.5 % (24.0-44.0); MEAN CORPUSCULAR HEMOGLOBIN 33.3 pg (27.0-33.0); MEAN CORPUSCULAR VOLUME 97.7 fl (80.0-96.0); MONO # 0.5 K/mm3 (0.0-0.8); MONO % 3.2 % (0.0-5.0); NEUTROPHILS # 12.4 K/mm3 (1.8-7.7); NEUTROPHILS % 88.3 % (36.0-66.0); PLATELET COUNT, AUTOMATED 238 k/mm3 (150-450); RED CELL DISTRIBUTION WIDTH 12.2 % (11.5-14.5); WHITE BLOOD COUNT 14.1 K/mm3 (4.0-10.0)
[2016-12-17] MEDS: LEVOTHYROXINE 0.125 MG TAB (125 MCG) PO SCH (05:48)
[2016-12-17 06:01] LABS: ALBUMIN 2.6 GM/DL (3.2-5.2); ALBUMIN/GLOBULIN RATIO 0.72 (1.00-1.93); ALKALINE PHOSPHATASE 53 U/L (45-117); ALT/SGPT 17 U/L (12-78); ANION GAP 10 MEQ/L (8-16); AST/SGOT 14 U/L (15-37); BILIRUBIN,TOTAL 0.3 MG/DL (0.2-1.0); BLOOD UREA NITROGEN 31 MG/DL (7-18); CALCIUM LEVEL 8.7 MG/DL (8.8-10.2); CARBON DIOXIDE LEVEL 26 MEQ/L (21-32); CHLORIDE LEVEL 104 MEQ/L (98-107); CREATININE FOR GFR 1.03 MG/DL (0.70-1.30); GLOMERULAR FILTRATION RATE > 60.0 (>42); GLUCOSE, FASTING 135 MG/DL (83-110); POTASSIUM SERUM 4.6 MEQ/L (3.5-5.1); SODIUM LEVEL 140 MEQ/L (136-145); TOTAL PROTEIN 6.2 GM/DL (6.4-8.2)
[2016-12-17 08:00] VITALS: BP 122/71
[2016-12-17] MEDS: MOM 30ML SUSPENSION UDC PO SCH (08:12)
[2016-12-17] MEDS: PANTOPRAZOLE 40MG TAB (PROTONIX) PO SCH (08:12)
[2016-12-17] MEDS: FUROSEMIDE 20 MG TAB PO SCH ×2 (08:13→17:35)
[2016-12-17] MEDS: ENOXAPARIN 30 MG/0.3 ML SYR (J1650) SC SCH (08:13)
[2016-12-17] MEDS: DOCUSATE SODIUM 100 MG CAP PO SCH ×2 (08:13→21:38)
[2016-12-17] MEDS: SOTALOL HCL 80 MG TAB PO SCH ×2 (09:00→17:35)
[2016-12-17] MEDS ORDERED: CEFD1CAP8 PO (10:19)
[2016-12-17] MEDS ORDERED: PRED20TA PO (10:19)
[2016-12-17] MEDS ORDERED: ZITH500T PO (10:19)
[2016-12-17] MEDS ORDERED: GENTAMICIN 100 MG in APPROPRIATE DILUENT 1 EA IV SCH (10:45)
--- NOTE | 2016-12-17 10:46 | REP ---
CHEST X-RAY: TWO VIEWS. HISTORY: Pleural effusion. COMPARISON: Chest x-ray, 12/16/2016. FINDINGS: Right pleural drainage catheter remains in place, unchanged. There is a tiny right apical pleural air collection and a small quantity of basilar pleural air is seen on the right. There is some air in the soft tissues along the chest tube insertion site outside of the thorax. There are old healed rib fractures on the right. Postsurgical clips are noted in the soft tissues of the right neck. There is a pacemaker in the mildly enlarged heart via the left side. Oxygen tubing and EKG electrodes are seen. No new infiltrate is noted. IMPRESSION: Small quantity of pleural air noted on the right. Right chest tube in place. Signed by Hossein Peguero MD 12/17/2016 03:03 P
--- NOTE | 2016-12-17 11:17 | IPNPDOC ---
Subjective General Date Seen The patient was seen on 12/17/16. Chief Complaint/HPI The patient is a 76-year-old male admitted with a reason for visit of COPD. Subjective Events since last encounter Pt states he is feeling better today. Dr Mills removed the pt's chest tube today. Pt still requiring supp O2. Pt denies CP, Abd pain. Constitutional: Denies: Chills, Fever Pulmonary: Reports: Dyspnea Cardiovascular: Denies: Chest Pain, Palpitations Gastrointestinal: Denies: Abdominal Pain, Nausea, Vomiting Objective Physical Examination General Exam: Positive: Alert, No Acute Distress Neck Exam: Positive: Supple, Negative: JVD Chest Exam: Positive: Clear to auscultation Heart Exam: Positive: Rate Normal, Regular Rhythm Abdomen Exam: Positive: Normal bowel sounds, Soft, Negative: Tenderness Extremity Exam: Negative: Edema Assessment /Plan Problems Problems: (1) Pulmonary infiltrate Status: Acute Problem Specific Plan: Consult Specialist, Monitor Clinically, Repeat Labs Problem Text: Pt is being followed by Dr Mills, who placed a chest tube yesterday and removed the chest tube today. Concern for malignant pleural effusion, however it appears that it is an empyema. Additionally, WBC up, and sputum cx positive for Pseudomonas and Enterobacter cloacae. Plan was going to be d/c home with follow up with Dr Feldman tomorrow to start chemo, however, now given the empyema and the positive sputum cx, will need to keep the pt longer for continued abx treatment for pneumonia caused by those organisms. Will d/c the Zithro and Ceftriaxone, and change to Zosyn and Gent. Will consult pharmacy to assist with gent dosing. Getting IV Solumedrol. Getting supp O2. Agree with need for antibiotic therapy for pseudomonas and enterobacter. he wouldn't be able to proceed with chemo with this infection. The pleural fluid showed some wbc but impressively low pH, elevated LDH, c/w empyema. Drainage has stopped so Dr. Mills removed Chest tube today. (2) Empyema Status: Acute Problem Specific Plan: Consult Specialist, Monitor Clinically, Repeat Labs Problem Text: See above. (3) Thyroid cancer Status: Chronic Problem Specific Plan: Monitor Clinically Problem Text: Pt will need to follow up with Dr Feldman at d/c to likely begin chemo. Case has been discussed with Dr Feldman. Pt getting radiation therapy with Dr Mcqueen. 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 Case has been discussed with Dr Feldman. Pt getting radiation therapy with Dr Mcqueen. The above plan on hold until infection is suppressed. (5) Hypothyroidism Status: Chronic Problem Specific Plan: Monitor Clinically Problem Text: On Synthroid. (6) HTN (hypertension) Status: Chronic Problem Specific Plan: Monitor Clinically Problem Text: On Lisinopril and sotolol. Plan/VTE VTE Prophylaxis Ordered?: Yes VS, I&O, 24H, Fishbone Vital Signs/I&O Vital Signs Date Time Temp Pulse Resp B/P Pulse Ox O2 Delivery O2 Flow Rate FiO2 12/17/16 08:00 96.4 54 18 122/71 93 Nasal Cannula 2.0 I&O- Last 24 Hours up to 6 AM 12/17/16 06:00 Intake Total 1800 ml Output Total 2394 ml Balance -594 ml Laboratory Data 24H LABS Laboratory Tests 2 12/16/16 17:00: Body Fluid Albumin 1.9, Body Fluid Amylase 30, Body Fluid Cholesterol < 50, Body Fluid Eosinophils 2, Body Fluid Glucose 6, Body Fluid Lactate Dehydrogenase 2337, Body Fluid Lymphocytes 3, Body Fluid Monocytes/Macrophages 9 , Body Fluid Neutrophils 86, Body Fluid Source PLEURAL, Body Fluid Total Protein 3.8, Body Fluid Triglycerides 11, Body Fluid pH 7.108, Pleural Fluid Appearance CLOUDY, Pleural Fluid Color YELLOW, Pleural Fluid RBC (Auto) < 10, Pleural Fluid Source PLEURAL, Pleural Fluid Total Nucleated Cells 3626H 12/17/16 05:24: Blood Urea Nitrogen 31#H, Creatinine 1.03, Sodium Level 140, Potassium Level 4.6 , Chloride Level 104, Carbon Dioxide Level 26, Calcium Level 8.7L, Aspartate Amino Transf (AST/SGOT) 14L, Alanine Aminotransferase (ALT/SGPT) 17, Alkaline Phosphatase 53, Total Bilirubin 0.3, Total Protein 6.2L, Albumin 2.6L, Albumin/ Globulin Ratio 0.72L, Anion Gap 10, White Blood Count 14.1H, Red Blood Count 4.20L, Hemoglobin 14.0, Hematocrit 41.1L, Mean Corpuscular Volume 97.7H, Mean Corpuscular Hemoglobin 33.3H, Mean Corpuscular Hemoglobin Concent 34.0, Red Cell Distribution Width 12.2, Platelet Count 238, Neutrophils (%) (Auto) 88.3H, Lymphocytes (%) (Auto) 7.5L, Monocytes (%) (Auto) 3.2, Eosinophils (%) (Auto) 0.2, Basophils (%) (Auto) 0.0, Neutrophils # (Auto) 12.4H, Lymphocytes # (Auto) 1.1L, Monocytes # (Auto) 0.5, Eosinophils # (Auto) 0.0, Basophils # (Auto) 0.0, Glomerular Filtration Rate > 60.0, Large Unclassified Cells # 0.1, Large Unclassified Cells % 0.8 CBC/BMP Laboratory Tests 12/17/16 05:24 Calcium Level 8.7 L, Aspartate Amino Transf (AST/SGOT) 14 L, Alanine Aminotransferase (ALT/SGPT) 17, Alkaline Phosphatase 53, Total Bilirubin 0.3, Total Protein 6.2 L, Albumin 2.6 L, Red Blood Count 4.20 L, Mean Corpuscular Volume 97.7 H, Mean Corpuscular Hemoglobin 33.3 H, Mean Corpuscular Hemoglobin Concent 34.0, Red Cell Distribution Width 12.2, Neutrophils (%) (Auto) 88.3 H, Lymphocytes (%) (Auto) 7.5 L, Monocytes (%) (Auto) 3.2, Eosinophils (%) (Auto) 0.2, Basophils (%) (Auto) 0.0, Neutrophils # (Auto) 12.4 H, Lymphocytes # (Auto ) 1.1 L, Monocytes # (Auto) 0.5, Eosinophils # (Auto) 0.0, Basophils # (Auto) 0.0 Microbiology Microbiology 12/15/16 Blood Culture - Preliminary, Resulted No growth after 24 hours . All specim... 12/15/16 Blood Culture - Preliminary, Resulted No growth after 24 hours . All specim... 12/16/16 Acid Fast Stain, Received Pending 12/16/16 Mycobacterial Culture, Received Pending 12/16/16 Fungal Smear, Received Pending 12/16/16 Fungal Culture, Received Pending 12/16/16 Gram Stain - Final, Resulted 12/16/16 Anaerobic Culture, Resulted Pending 12/16/16 Body Fluid Culture, Received Pending 12/15/16 Gram Stain - Final, Complete 12/15/16 Sputum Culture - Final, Complete Pseudomonas Aeruginosa Enterobacter Cloacae Complex Rupert Denton Dec 17, 2016 11:17 Bk Limon MD Dec 17, 2016 15:12
--- NOTE | 2016-12-17 11:20 | IPN ---
DATE: 12/17/2016 Mr. Oseguera feels much better today and can breathe a lot easier. He is not complaining of shortness of breath at rest. His chest tube is draining almost nothing. His vital signs are T-max of 96.4 with a heart rate that ranges between 68 and 54 in a sinus rhythm, a respiratory rate of 18 to 20 without the use of accessory muscles, who is 93% to 94% saturated on 2 liters nasal cannula. He does desaturate below 88% when he ambulated down to x-ray. His blood pressure ranges between 134/76 to 119/74. His intake and output the past 24 hours has been recorded as 2040 in and 2694 out for a negative of 650 mL. He has put 1200 mL out the chest tube in its initial drainage. Over the last 10 hours, he has not put out any fluid. There is no air leak. Weight today is 73.6 kg, which is the same as yesterday. On physical examination, he has faint inspiratory rales on the left side during late to mid inspiration. The remainder of his lungs show normal vesicular sounds. His percussion note is full to the diaphragm. Cardiac Exam: Without murmurs, clicks, gallops, or rubs. I cannot feel his PMI. S1, S2 are normal. Abdomen: Soft. Nontender. Bowel sounds are positive. There is no hepatomegaly. No costovertebral angle (CVA) tenderness. Extremities: Show no pretibial edema. No calf tenderness. No differential swelling of the upper extremities. Skin: Warm, dry and perfused. Without cyanosis or mottling, including that of the nail beds and knees. Neck: Supple. There is no jugular venous distention. No subcutaneous emphysema. Trachea is midline. Mouth: Shows his mucous membranes to be pink and moist. Lips and commissures are without lesions. There is no thrush. Eyes: Show his pupils to be equal and reactive. Extraocular movements intact. Sclerae nonicteric. Neurologic: Shows II-XII intact along with gross motor and gross sensation intact. Gait is not tested. Psychiatric shows him to be awake, alert, and oriented times three with appropriate mood and affect and conversational. His white count today is 14.1, up from 6.3 yesterday. Hemoglobin and hematocrit is 14 and 41, essentially unchanged from yesterday. Platelet count is 258. Differential shows 88% neutrophils, 7% lymphocytes, 3% monocytes. There are no immature forms and no toxic granulations. His electrolytes are normal with a BUN and creatinine of 31 and 1.03, changed from 18 and 0.97 yesterday. Glucose is 135 with a calcium of 8.7 and a corresponding albumin of 2.6. His pleural fluid has been returned with a pH of 7.1 with LDH of 2337. There were 3600 white cells, 86% neutrophils, and 3% are lymphocytes. His fluid glucose is only 6. This clearly looks like an empyema. From his sputum culture of 12/15/2016, he is growing out Pseudomonas in a moderate amount and Enterobacter cloacae in moderate amounts. Fluid culture is pending. His chest x-ray today shows complete resolution of his pleural effusion empyema. Costophrenic angles are sharp. There is no subcutaneous emphysema. Lung is fully expanded to the chest wall. He has what looks to be an infiltrative process in the right lower lobe. IMPRESSION: 1. Right empyema. 2. Left lower lobe pneumonia. 3. Widely metastatic anaplastic thyroid carcinoma. 4. Hypertension. 5. Chronic obstructive pulmonary disease. 6. Hyperlipidemia. 7. Hypothyroidism. PLAN AND DISCUSSION: He is feeling much better today; however, he clearly has a left lower lobe pneumonia and an empyema. Our plan was to discharge him today so he could undergo chemotherapy tomorrow for his widely metastatic thyroid cancer. That would be certainly contraindicated considering the immunosuppression involved in chemotherapy. Since he is growing Pseudomonas, he is going to be kept in the hospital for IV antibiotics for approximately 5-7 days. At that time, will send him over for chemotherapy. I am going to discontinue his chest tube as it is not draining anything and it will just serve as a portal of infection.
[2016-12-17 12:00] VITALS: BP 137/66
[2016-12-17] MEDS: PIPERACILLIN/TAZOBACTAM SOD 3.375 GM in D5W MINI-BAG PLUS 50 ML IV SCH ×2 (12:27→17:36)
[2016-12-17] MEDS: predniSONE 20 MG TAB PO SCH (12:28)
[2016-12-17] MEDS: LISINOPRIL *2.5 MG* TAB PO SCH (12:28)
[2016-12-17] MEDS: GENTAMICIN 120 MG in D5W 50 ML IV SCH (15:34)
[2016-12-17 15:45] VITALS: BP 127/97
[2016-12-17 20:17] VITALS: BP 111/57
[2016-12-17] MEDS: ATORVASTATIN 10 MG TAB PO SCH (21:38)
--- NOTE | 2016-12-17 21:40 | ECHO ---
DATE OF PROCEDURE: 12/17/2016 REFERRING PHYSICIAN: Bk Limon MD INDICATION: Dyspnea. HEIGHT: 183 cm WEIGHT: 73.0 kg MEASUREMENTS: Aortic root: 4.2 cm Left atrium: 3.4 cm Ventricular septum: 0.93 cm Posterior wall: 0.93 cm Left ventricle diastole: 5.1 cm LVOT: 2.5 cm Inferior vena cava: 1.7 cm DOPPLER MEASUREMENTS: Very mild aortic regurgitation. Aortic valve velocity: 106 cm/s LVOT velocity: 64.7 cm/s LVOT VTI: 17.4 cm Mild mitral regurgitation. Mitral E velocity: 54.8 cm/s Mitral A velocity: 85.4 cm/s Mitral deceleration time: 394 ms Moderate tricuspid regurgitation. Estimated right ventricle systolic pressure 59 mmHg assuming a right atrial pressure of 10 mmHg. MITRAL ANNULAR TISSUE DOPPLER: E prime septal: 3.6 cm/s E prime lateral: 4.8 cm/s DESCRIPTION: Rhythm appeared to be sinus bradycardia, P-synchronous ventricular paced rhythm. Some premature ventricular contractions (PVCs) were observed. Image quality was fair. No pericardial effusion. This is a 2D, M-mode, color flow Doppler and pulse wave Doppler examination that included mitral annular tissue Doppler. CONCLUSIONS: 1. Normal left ventricle end-diastolic size and normal LV wall thickness. Severe reduction overall LV systolic function. Left ventricular ejection fraction (LVEF) 30% by visual estimate. Appearance of akinesis of the basal and mid inferior LV segments with moderate global LV hypokinesis elsewhere. Grade 1 LV diastolic dysfunction (impaired relaxation filling pattern). 2. Moderately-severe elevation of estimated right ventricle systolic pressure (59 mmHg). Moderate tricuspid regurgitation. 3. Mild dilatation of aortic root at the level of the sinus of Valsalva. 4. Mild aortic valve sclerosis of a three-cuspid aortic valve. Very mild aortic regurgitation. 5. Presence of endocardial right-sided rhythm management leads with appearance of an AICD lead coursing toward the right ventricle apex and at least one other lead within the right atrium.
[2016-12-17 23:52] VITALS: BP 143/62
[2016-12-18] VITALS (7 sets, daily range): BP systolic 98–126; BP diastolic 61–80; O2SAT 99
[2016-12-18] MEDS: PIPERACILLIN/TAZOBACTAM SOD 3.375 GM in D5W MINI-BAG PLUS 50 ML IV SCH ×4 (00:13→17:19)
[2016-12-18] MEDS: GENTAMICIN 120 MG in D5W 50 ML IV SCH ×2 (01:52→14:09)
[2016-12-18] MEDS: IPRATROPIUM 0.5MG/ALBUTEROL 2.5MG INH SOL UD 3ML (DUONEB)(J7620) NEB SCH ×4 (02:29→20:51)
[2016-12-18] MEDS: LEVOTHYROXINE 0.125 MG TAB (125 MCG) PO SCH (05:09)
[2016-12-18 05:22] LABS: EOS % 0.2 % (0.0-3.0); LARGE UNSTAINED CELL # 0.1 K/mm3 (0.0-0.4); LYMPH % 7.9 % (24.0-44.0); MEAN CORPUSCULAR HEMOGLOBIN 32.1 pg (27.0-33.0); MEAN CORPUSCULAR HGB CONC 32.4 g/dl (32.0-36.5); MEAN CORPUSCULAR VOLUME 98.9 fl (80.0-96.0); MONO # 0.5 K/mm3 (0.0-0.8); MONO % 4.1 % (0.0-5.0); NEUTROPHILS # 10.6 K/mm3 (1.8-7.7); NEUTROPHILS % 86.8 % (36.0-66.0); PLATELET COUNT, AUTOMATED 250 k/mm3 (150-450); RED CELL DISTRIBUTION WIDTH 12.2 % (11.5-14.5); WHITE BLOOD COUNT 12.3 K/mm3 (4.0-10.0)
[2016-12-18 05:36] LABS: ALBUMIN 2.6 GM/DL (3.2-5.2); ALBUMIN/GLOBULIN RATIO 0.79 (1.00-1.93); ALKALINE PHOSPHATASE 51 U/L (45-117); ALT/SGPT 19 U/L (12-78); ANION GAP 7 MEQ/L (8-16); AST/SGOT 14 U/L (15-37); BILIRUBIN,TOTAL 0.3 MG/DL (0.2-1.0); BLOOD UREA NITROGEN 32 MG/DL (7-18); CALCIUM LEVEL 8.4 MG/DL (8.8-10.2); CARBON DIOXIDE LEVEL 28 MEQ/L (21-32); CHLORIDE LEVEL 106 MEQ/L (98-107); CREATININE FOR GFR 1.09 MG/DL (0.70-1.30); GLOMERULAR FILTRATION RATE > 60.0 (>42); GLUCOSE, FASTING 112 MG/DL (83-110); POTASSIUM SERUM 4.9 MEQ/L (3.5-5.1); SODIUM LEVEL 141 MEQ/L (136-145); TOTAL PROTEIN 5.9 GM/DL (6.4-8.2)
--- NOTE | 2016-12-18 09:23 | REP ---
Chest x-ray: Two views. History: Pleural effusion. Comparison chest x-ray December 17, 2016. Findings: There is bipolar pacemaker in the right heart via the left side. EKG electrodes are seen. The right chest tube has been removed since yesterday's film. There is a small right apical pneumothorax unchanged. The large right supraclavicular mass is again seen in the extrathoracic soft tissues. There are old healed rib fractures on the right. There are multiple soft tissue nodules in the right lung with ill-defined margins. Diffuse interstitial prominence is again seen. There is slight blunting of the posterior pleural angle on the right. Impression: Right chest tube removed. Otherwise stable changes. Signed by Hossein Peguero MD 12/18/2016 12:23 P
[2016-12-18] MEDS: ENOXAPARIN 30 MG/0.3 ML SYR (J1650) SC SCH (09:58)
[2016-12-18] MEDS: SOTALOL HCL 80 MG TAB PO SCH ×3 (09:58→21:45)
[2016-12-18] MEDS: DOCUSATE SODIUM 100 MG CAP PO SCH ×2 (09:58→21:45)
[2016-12-18] MEDS: MOM 30ML SUSPENSION UDC PO SCH (09:59)
[2016-12-18] MEDS: FUROSEMIDE 20 MG TAB PO SCH ×2 (09:59→17:19)
[2016-12-18] MEDS: predniSONE 20 MG TAB PO SCH (09:59)
[2016-12-18] MEDS: PANTOPRAZOLE 40MG TAB (PROTONIX) PO SCH (09:59)
--- NOTE | 2016-12-18 11:06 | IPNPDOC ---
Subjective General Date Seen The patient was seen on 12/18/16. Subjective Chief Complaint/HPI The patient is a 76-year-old male admitted with a reason for visit of COPD. Events since last encounter Pt states his breathing is better. He denies any CP, Abd pain. Went for radiation treatment earlier today. Constitutional: Denies: Chills, Fever Pulmonary: Denies: Dyspnea Cardiovascular: Denies: Chest Pain Gastrointestinal: Denies: Abdominal Pain, Nausea, Vomiting Objective Physical Examination General Exam: Positive: Alert, No Acute Distress Neck Exam: Positive: Supple, Negative: JVD Chest Exam: Positive: Clear to auscultation Heart Exam: Positive: Rate Normal, Regular Rhythm Abdomen Exam: Positive: Normal bowel sounds, Soft, Negative: Tenderness Extremity Exam: Negative: Edema Assessment /Plan Problems Problems: (1) Pulmonary infiltrate Status: Acute Problem Specific Plan: Consult Specialist, Monitor Clinically, Repeat Labs Problem Text: 12/18 - Pt has empyema. Dr Mills following and removed chest tube yesterday. Sputum cx positive for Pseudomonas and Enterobacter cloacae. On Zosyn and Gent (Zithro and Ceftriaxone were d/c'ed yesterday). WBC down slightly to 12.3 today. IV solumedrol was d/c'ed and now on PO Prednisone. Plan is to treat the infection and then set up with Dr Feldman to begin chemo once infection has been treated. 12/17 - Pt is being followed by Dr Mills, who placed a chest tube yesterday and removed the chest tube today. Concern for malignant pleural effusion, however it appears that it is an empyema. Additionally, WBC up, and sputum cx positive for Pseudomonas and Enterobacter cloacae. Plan was going to be d/c home with follow up with Dr Feldman tomorrow to start chemo, however, now given the empyema and the positive sputum cx, will need to keep the pt longer for continued abx treatment for pneumonia caused by those organisms. Will d/c the Zithro and Ceftriaxone, and change to Zosyn and Gent. Will consult pharmacy to assist with gent dosing. Getting IV Solumedrol. Getting supp O2. Agree with need for antibiotic therapy for pseudomonas and enterobacter. he wouldn't be able to proceed with chemo with this infection. The pleural fluid showed some wbc but impressively low pH, elevated LDH, c/w empyema. Drainage has stopped so Dr. Mills removed Chest tube today. (2) Empyema Status: Acute Problem Specific Plan: Consult Specialist, Monitor Clinically, Repeat Labs Problem Text: See above. (3) Thyroid cancer Status: Chronic Problem Specific Plan: Monitor Clinically Problem Text: Pt will need to follow up with Dr Feldman at d/c to likely begin chemo. Case has been discussed with Dr Feldman. Pt getting radiation therapy with Dr Mcqueen. 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 Case has been discussed with Dr Feldman. Pt getting radiation therapy with Dr Mcqueen. The above plan on hold until infection is suppressed. (5) Hypothyroidism Status: Chronic Problem Specific Plan: Monitor Clinically Problem Text: On Synthroid. (6) HTN (hypertension) Status: Chronic Problem Specific Plan: Monitor Clinically Problem Text: On Lisinopril and sotolol. Plan/VTE VTE Prophylaxis Ordered?: Yes VS, I&O, 24H, [facility] Vital Signs/I&O Vital Signs Date Time Temp Pulse Resp B/P Pulse Ox O2 Delivery O2 Flow Rate FiO2 12/18/16 09:58 63 103/64 12/18/16 08:00 96.5 20 100 Nasal Cannula 2.0 I&O- Last 24 Hours up to 6 AM 12/18/16 06:00 Intake Total 1710 ml Output Total 2125 ml Balance -415 ml Laboratory Data 24H LABS Laboratory Tests 2 12/18/16 05:03: Blood Urea Nitrogen 32H, Creatinine 1.09, Sodium Level 141, Potassium Level 4.9 , Chloride Level 106, Carbon Dioxide Level 28, Calcium Level 8.4L, Aspartate Amino Transf (AST/SGOT) 14L, Alanine Aminotransferase (ALT/SGPT) 19, Alkaline Phosphatase 51, Total Bilirubin 0.3, Total Protein 5.9L, Albumin 2.6L, Albumin/ Globulin Ratio 0.79L, Anion Gap 7L, White Blood Count 12.3H, Red Blood Count 4.22L, Hemoglobin 13.5L, Hematocrit 41.7L, Mean Corpuscular Volume 98.9H, Mean Corpuscular Hemoglobin 32.1, Mean Corpuscular Hemoglobin Concent 32.4, Red Cell Distribution Width 12.2, Platelet Count 250, Neutrophils (%) (Auto) 86.8H, Lymphocytes (%) (Auto) 7.9L, Monocytes (%) (Auto) 4.1, Eosinophils (%) (Auto) 0.2, Basophils (%) (Auto) 0.0, Neutrophils # (Auto) 10.6H, Lymphocytes # (Auto) 1.0L, Monocytes # (Auto) 0.5, Eosinophils # (Auto) 0.0, Basophils # (Auto) 0.0, Glomerular Filtration Rate > 60.0, Large Unclassified Cells # 0.1, Large Unclassified Cells % 1.0 CBC/BMP Laboratory Tests 12/18/16 05:03 Calcium Level 8.4 L, Aspartate Amino Transf (AST/SGOT) 14 L, Alanine Aminotransferase (ALT/SGPT) 19, Alkaline Phosphatase 51, Total Bilirubin 0.3, Total Protein 5.9 L, Albumin 2.6 L, Red Blood Count 4.22 L, Mean Corpuscular Volume 98.9 H, Mean Corpuscular Hemoglobin 32.1, Mean Corpuscular Hemoglobin Concent 32.4, Red Cell Distribution Width 12.2, Neutrophils (%) (Auto) 86.8 H, Lymphocytes (%) (Auto) 7.9 L, Monocytes (%) (Auto) 4.1, Eosinophils (%) (Auto) 0.2, Basophils (%) (Auto) 0.0, Neutrophils # (Auto) 10.6 H, Lymphocytes # (Auto ) 1.0 L, Monocytes # (Auto) 0.5, Eosinophils # (Auto) 0.0, Basophils # (Auto) 0.0 Microbiology Microbiology 12/15/16 Blood Culture - Preliminary, Resulted No Growth after 48 hours. All Specime... 12/15/16 Blood Culture - Preliminary, Resulted No Growth after 48 hours. All Specime... 12/16/16 Acid Fast Stain, Received Pending 12/16/16 Mycobacterial Culture, Received Pending 12/16/16 Fungal Smear, Received Pending 12/16/16 Fungal Culture, Received Pending 12/16/16 Gram Stain - Final, Resulted 12/16/16 Anaerobic Culture, Resulted Pending 12/16/16 Body Fluid Culture, Received Pending 12/15/16 Gram Stain - Final, Complete 12/15/16 Sputum Culture - Final, Complete Pseudomonas Aeruginosa Enterobacter Cloacae Complex Rupert Denton Dec 18, 2016 11:06
[2016-12-18] MEDS: LISINOPRIL *2.5 MG* TAB PO SCH (12:01)
--- NOTE | 2016-12-18 13:19 | EDDOCDS ---
Nurse's Notes [facility] Name: Carmina Oseguera Age: 76 yrs Sex: Male : 1940 Arrival Date: 12/15/2016 Time: 10:17 Bed Admit Hold Private MD: Diagnosis: Pneumonia, unspecified organism;Dyspnea Presentation: 12/15 10:24 Presenting complaint: EMS states: Patient became SOB this morning. EMS states 86% on RA js13 when arrived. Patient put on 10L NRB mask and O2 up to 99%. LS clear. Suicide/Homicide risk assessment- the patient denies having any suicidal and/or homicidal ideations and does not present with any other emotional, behavioral or mental health complaints. Status: Patient is not a service desk technician or dependent. Transition of care: patient was not received from another setting of care. Care prior to arrival: See EMS report. Saline lock initiated. Glucose check. 112 Oxygen administered by EMS. 10:24 Acuity: JACKIE Level 3 js13 10:24 Method Of Arrival: Ambulance 13 10:43 Adult Sepsis Screening: The patient does not have new or worsening altered mentation. js13 Patient's respiratory rate is less than 22. Systolic blood pressure is greater than 100. Patient has a qSOFA score of 0- Negative Sepsis Screen. Triage Assessment: 10:30 General: Appears in no apparent distress, Behavior is appropriate for age, cooperative. js13 General: Patient states symptoms improved. Pain: Denies pain. Neurological: Level of Consciousness is awake, alert. Cardiovascular: Rhythm is with capture Chest pain is denied. Respiratory: Onset: The symptoms/episode began/occurred this morning, Airway is patent Respiratory effort is even, unlabored, Respiratory pattern is regular, symmetrical, Breath sounds are clear. Derm: Skin is pink, warm & dry. Historical: - Allergies: no known allergies; - Home Meds: 1. Calcium + Vitamin D 600 mg calcium- 200 unit oral tab 2. levothyroxine 125 mcg oral tab once daily 3. sotalol 80 mg Oral tab 1 tab 2 times per day 4. lisinopril 2.5 mg Oral tab 1 tab once daily 5. atorvastatin 10 mg oral tab 1 tab once daily 6. Lasix 20 mg Oral tab 1 tab once daily 7. Combivent 18-103 mcg/actuation Inhl aero 2 puffs 4 times per day 8. Incruse Ellipta 62.5 mcg/actuation inhalation dsdv 1 puff once daily 9. albuterol sulfate 90 mcg/actuation Inhl HFAA every 6 hours - PMHx: COPD; Hypercholesterolemia; Hypertension; Hypothyroidism; - PSHx: Thyroidectomy; Prostatectomy; AICD insertion; - Family history: Not pertinent. - Social history: Smoking status: Patient states former smoker of tobacco. No barriers to communication noted, The patient speaks fluent Slovenian. - : The pt / caregiver states he / she is not on anticoagulants. Home medication list is obtained from the patient. - Exposure Risk Screening:: None identified. Screenin:31 Screening information is obtained from the patient. Fall risk: At risk due to age. js13 Assistance ADL's: requires no assistance with activities of daily living. Abuse/DV Screen: The patient / caregiver reports he/she is: not in a situation that causes fear, pain or injury. Nutritional screening: No deficits noted. Advance Directives: There is no active DNR order. home support is adequate. Assessment: 10:34 General: See triage assessment. js13 11:37 General: Appears in no apparent distress, Behavior is appropriate for age, cooperative. rs3 Pain: Denies pain. Neurological: Level of Consciousness is awake, alert, Oriented to person, place, time. Cardiovascular: Capillary refill < 3 seconds Clubbing of nail beds is absent Heart tones S1 S2 present Rhythm is atrial pacer Chest pain is denied. Respiratory: Airway is patent Respiratory effort is even, unlabored, Respiratory pattern is regular, symmetrical, Sputum is white Breath sounds with crackles in right posterior middle lobe Breath sounds are diminished bilaterally. Derm: Skin is pink, warm & dry. 12:43 General: Appears in no apparent distress, Behavior is appropriate for age, cooperative, rs3 resting comfortable on stretcher. denies of pain/acute distress/difficulty breathing. breathes easy. 13:45 General: Appears in no apparent distress, Behavior is cooperative, resting comfortable rs3 on stretcher. neisha lewis given. denies of pain/'distress. 14:50 General: Appears in no apparent distress, resting comfortable on stretcher. denies of rs3 pain/distress. ordered antibiotic infusing. tolerating well. breathes easy. 15:50 General: Appears in no apparent distress, denies of distress/pain. breathes easy. vital rs3 signs stable. on oxygen 4L/nc sat 93%. 16:40 General: Appears in no apparent distress, Behavior is appropriate for age, cooperative, rs3 family at bedside. denies of pain/distress. bedside urinal given. tolerating standing by the bedside with oxygen. no SOB. . 17:53 General: Appears in no apparent distress, Behavior is appropriate for age, sits at the rs3 edge of stretcher eating supper. tolerating well. oxygen sat remains at 90% on 4L/nc. breathes easy. 18:43 General: Appears in no apparent distress, Behavior is appropriate for age, cooperative, rs3 denies of acute distress/pain. breathes easy. family at bedside. vital signs stable. 19:04 General: Verbal report given by Nichole Dietrich RN. Assumed care of patient at this time.. kas2 19:17 General: Appears in no apparent distress, comfortable, well nourished, well groomed, kas2 Behavior is appropriate for age, cooperative. Pain: Denies pain. Neurological: Level of Consciousness is awake, alert, Oriented to person, place, time. Cardiovascular: Capillary refill < 3 seconds Heart tones S1 S2 present Rhythm is atrial pacer Chest pain is denied. Respiratory: Airway is patent Respiratory effort is even, unlabored, Respiratory pattern is regular, symmetrical, Breath sounds with crackles in right posterior middle lobe and right posterior lower lobe and left posterior lower lobe Breath sounds are diminished bilaterally. Derm: Skin is intact, Skin is dry, Skin is pink, warm & dry. Skin temperature is warm. 19:22 General: Verbal report given Mariann Grace RN.. kas2 Vital Signs: 10:35 BP 140 / 62; Pulse 64; Resp 20; Temp 99.4(O); Pulse Ox 100% on Non-rebreather mask; js13 Weight 72.57 kg; Height 5 ft. 10 in. (177.80 cm); Pain 0/10; 11:14 BP 113 / 59 (auto/); rs3 11:15 Pulse 72 MON; Pulse Ox 92% ; rs3 11:29 BP 107 / 59 (auto/); rs3 11:29 Pulse 72 MON; Pulse Ox 91% ; rs3 11:43 Pulse 70 MON; Pulse Ox 93% ; rs3 11:44 BP 118 / 57 (auto/); rs3 11:59 BP 116 / 58 (auto/); rs3 12:00 Pulse 60 MON; Pulse Ox 93% ; rs3 12:14 BP 126 / 59 (auto/); rs3 12:14 Pulse 64 MON; Pulse Ox 92% ; rs3 14:59 BP 127 / 71 (auto/); kas2 14:59 Pulse 70 MON; Pulse Ox 92% ; kas2 15:14 BP 124 / 76 (auto/); kas2 15:14 Pulse 68 MON; Pulse Ox 93% ; kas2 15:29 BP 133 / 75 (auto/); kas2 15:29 Pulse 72 MON; Pulse Ox 93% ; kas2 15:44 BP 138 / 75 (auto/); kas2 15:44 Pulse 74 MON; Pulse Ox 93% ; kas2 15:59 BP 131 / 71 (auto/); kas2 15:59 Pulse 70 MON; Pulse Ox 92% ; kas2 16:14 BP 139 / 75 (auto/); kas2 16:14 Pulse 74 MON; Pulse Ox 92% ; kas2 16:29 BP 118 / 57 (auto/); kas2 16:29 Pulse 72 MON; Pulse Ox 90% ; kas2 16:44 BP 146 / 75 (auto/); kas2 16:44 Pulse 72 MON; Pulse Ox 91% ; kas2 16:59 BP 161 / 84 (auto/); kas2 16:59 Pulse 72 MON; Pulse Ox 92% ; kas2 17:14 BP 146 / 96 (auto/); kas2 17:14 Pulse 76 MON; Pulse Ox 90% ; kas2 17:31 BP 132 / 88 (auto/); kas2 17:32 Pulse 44 MON; Pulse Ox 92% ; kas2 17:44 BP 130 / 59 (auto/); kas2 17:44 Pulse 82 MON; Pulse Ox 92% ; kas2 17:59 BP 120 / 75 (auto/); kas2 17:59 Pulse 82 MON; Pulse Ox 92% ; kas2 18:14 BP 128 / 58 (auto/); kas2 18:14 Pulse 80 MON; Pulse Ox 90% ; kas2 18:29 BP 117 / 64 (auto/); kas2 18:29 Pulse 80 MON; Pulse Ox 90% ; kas2 18:44 BP 117 / 69 (auto/); kas2 18:44 Pulse 88 MON; Pulse Ox 92% ; kas2 18:59 BP 117 / 68 (auto/); kas2 18:59 Pulse 74 MON; Pulse Ox 91% ; kas2 19:14 BP 113 / 66 (auto/); kas2 19:14 Pulse 80 MON; Pulse Ox 91% ; kas2 10:35 Body Mass Index 22.96 (72.57 kg, 177.80 cm) js13 Vitals: 10:30 Log In Time N/A - ambulance arrival. js13 ED Course: 10:18 Patient visited by Sho Oliver, Coronary Clinical Specialist. deg 10:18 Emily Davis,RN is Primary Nurse. deg 10:18 Patient moved to Waiting deg 10:18 Patient moved to 10 deg 10:27 Triage Initiated js13 10:31 The patient / caregiver is instructed regarding the plan of care and ED course. Cardiac js13 monitor on. Pulse ox on. NIBP on. 10:31 Maintain field IV. Dressing intact. Good blood return noted. Site clean & dry. Gauge & js13 site: 18 gauge in LFA. No procedures done that require assistance. 10:44 Patient visited by Emily Davis,NATASHA. js13 10:56 EKG done. (by ED staff). bnb 10:57 EKG done. bnb 10:58 Patient visited by Yadira Ku PCA. bnb 10:59 Brenda Bowman MD is Attending Physician. ml 10:59 Patient visited by Brenda Bowman MD. ml 11:06 Kelly Vazquez,NATASHA is Primary Nurse. rs3 11:37 Patient visited by Kelly Vazquez RN. rs3 11:37 B-Type Natiuretic Peptide Sent. rs3 11:38 -Arterial Blood Gas Sent. kjn 12:20 Patient visited by Kelly Vazquez,NATASHA. rs3 12:20 BLOOD CULTURES Sent. rs3 12:39 Chest, 1 View Returned. EDMS 13:04 Cole Mckeon is Hospitalizing Provider. ml 14:00 CT Chest Angio R/O PE Returned. EDMS 15:49 [facility] [place] Payment Agreement was scanned into [employer] and attached to record. zo 15:58 Patient visited by Kelly Vazquez RN. rs3 16:54 Chest, 1 View Returned. EDMS 17:16 Patient visited by Kelly Vazquez RN. rs3 17:53 Patient visited by Kelly Vazquez RN. rs3 18:43 Patient visited by Kelly Vazquez RN. rs3 19:05 Patient visited by Mariann Troncoso RN. kas2 19:11 Patient moved to Admit Hold sls1 19:19 Patient visited by Mariann Troncoso RN. kas2 19:19 Patient moved to 20 sls1 19:19 Patient moved to Admit Hold sls1 19:22 Patient visited by Mariann Troncoso RN. kas2 19:23 Patient visited by Mariann Troncoso RN. kas2 20:54 EKG-ADULT Returned. EDMS 20:58 Primary Nurse role handed off by Emily Davis RN loraine 23:57 Primary Nurse role handed off by Kelly Vazquez RN loraine 12/16 10:02 T-Sheet-- Draft Copy was scanned into [employer] and attached to record. gb 15:31 ECG/EKG was scanned into [employer] and attached to record. gb 15:31 Radiology Report was scanned into [employer] and attached to record. gb 15:31 Rhythm Strip was scanned into [employer] and attached to record. gb Administered Medications: 12/15 11:21 Drug: Albuterol 5 mg [albuterol sulfate 2.5 mg/0.5 mL solution for nebulization (1 mL)] kjn Route: Nebulizer; 11:21 Drug: Albuterol-Ipratropium 3 ml [ipratropium-albuterol 0.5 mg-3 mg(2.5 mg base)/3 mL kjn nebulization soln (3 mL)] Route: Inhalation; 13:59 Drug: cefTRIAXone 1 grams [ceftriaxone 1 gram solution for injection] Route: IVPB; rs3 Infused Over: 30 mins; Site: left forearm; 16:01 Follow up: IV Status: Completed infusion rs3 14:03 Drug: azithromycin 500 mg [azithromycin 500 mg intravenous solution] Route: IVPB; mk4 Infused Over: 1 hrs; Site: left antecubital; 16:01 Follow up: IV Status: Completed infusion rs3 Attachments: 15:31 Rhythm Strip gb RT: 12/15 11:22 Initial Med Neb Given as ordered. Respiratory: Breath sounds with crackles bilaterally. kjn in left posterior lower lobe and right posterior lower lobe Breath sounds are diminished bilaterally. 11:38 ABG's drawn from right brachial artery pressure held for 5 minutes no bleeding noted kjn specimen sent pt. tolerated well. Order Results: Lab Order: -Arterial Blood Gas; [facility]' 12/15/16 11:21 Test: ABG pH (ARTERIAL); Value: 7.414; Range: 7.350-7.450; Units: UNITS; Status: F Test: ABG PARTIAL PRESSURE CO2; Value: 31.2; Range: 35.0-45.0; Abnormal: Below low normal; Units: mmHg; Status: F Test: ABG PARTIAL PRESSURE O2; Value: 64.9; Range: 75.0-100.0; Abnormal: Below low normal; Units: mmHg; Status: F Test: ABG TOTAL CO2; Value: 20.5; Range: 23.0-31.0; Abnormal: Below low normal; Units: MEQ/L; Status: F Test: ABG HCO3; Value: 19.5; Range: 22.0-26.0; Abnormal: Below low normal; Units: MEQ/L; Status: F Test: ABG BASE EXCESS; Value: -3.9; Range: -2.0-2.0; Abnormal: Below low normal; Status: F Test: ABG STANDARD HCO3; Value: 21.1; Range: 22.0-26.0; Abnormal: Below low normal; Units: MEQ/L; Status: F Test: ABG O2 SATURATION; Value: 92.1; Range: 95.0-99.0; Abnormal: Below low normal; Units: %; Status: F Test: ABG DEVICE; Value: NASAL CHRISTELLE; Status: F Lab Order: -Blood Culture; SPEC' 12/15/16 11:25 Test: BLOOD CULTURE; Value: No growth after 24 hours . All specimens observed; Status: F Test: BLOOD CULTURE; Value: for 7 days. Results final at that time.; Status: F Lab Order: B-Type Natiuretic Peptide; [facility]' 12/15/16 11:25 Test: BRAIN NATRIURETIC PEPTIDE; Value: 635; Range: <100; Abnormal: Above high normal; Units: PG/ML; Status: F Lab Order: Basic Metabolic Profile; [facility]'12/15/16 11:25 Test: GLUCOSE, FASTING; Value: 89; Range: 83-110; Units: MG/DL; Status: F Test: BLOOD UREA NITROGEN; Value: 20; Range: 7-18; Abnormal: Above high normal; Units: MG/DL; Status: F Test: CREATININE FOR GFR; Value: 0.98; Range: 0.70-1.30; Units: MG/DL; Status: F Test: GLOMERULAR FILTRATION RATE; Value: > 60.0; Range: >42; Status: F Test: SODIUM LEVEL; Value: 142; Range: 136-145; Units: MEQ/L; Status: F Test: POTASSIUM SERUM; Value: 4.5; Range: 3.5-5.1; Units: MEQ/L; Status: F Test: CHLORIDE LEVEL; Value: 105; Range: 98-107; Units: MEQ/L; Status: F Test: CARBON DIOXIDE LEVEL; Value: 25; Range: 21-32; Units: MEQ/L; Status: F Test: ANION GAP; Value: 12; Range: 8-16; Units: MEQ/L; Status: F Test: CALCIUM LEVEL; Value: 8.1; Range: 8.8-10.2; Abnormal: Below low normal; Units: MG/DL; Status: F Test Note: ; Units are mL/min/1.73 m2 Chronic Kidney Disease Staging per NKF: Stage I & II GFR >=60 Normal to Mildly Decreased Stage III GFR 30-59 Moderately Decreased Stage IV GFR 15-29 Severely Decreased Stage V GFR <15 Very Little GFR Left ESRD GFR <15 on BOILERMAKER HELPER Lab Order: CBC with Diff; SPEC'M 12/15/16 11:25 Test: WHITE BLOOD COUNT; Value: 8.6; Range: 4.0-10.0; Units: K/mm3; Status: F Test: RED BLOOD COUNT; Value: 4.03; Range: 4.30-6.10; Abnormal: Below low normal; Units: M/mm3; Status: F Test: HEMOGLOBIN; Value: 13.4; Range: 14.0-18.0; Abnormal: Below low normal; Units: g/dl; Status: F Test: HEMATOCRIT; Value: 39.9; Range: 42.0-52.0; Abnormal: Below low normal; Units: %; Status: F Test: MEAN CORPUSCULAR VOLUME; Value: 99.1; Range: 80.0-96.0; Abnormal: Above high normal; Units: fl; Status: F Test: MEAN CORPUSCULAR HEMOGLOBIN; Value: 33.2; Range: 27.0-33.0; Abnormal: Above high normal; Units: pg; Status: F Test: MEAN CORPUSCULAR HGB CONC; Value: 33.5; Range: 32.0-36.5; Units: g/dl; Status: F Test: RED CELL DISTRIBUTION WIDTH; Value: 12.6; Range: 11.5-14.5; Units: %; Status: F Test: PLATELET COUNT, AUTOMATED; Value: 223; Range: 150-450; Units: k/mm3; Status: F Test: NEUTROPHILS %; Value: 72.0; Range: 36.0-66.0; Abnormal: Above high normal; Units: %; Status: F Test: LYMPH %; Value: 13.4; Range: 24.0-44.0; Abnormal: Below low normal; Units: %; Status: F Test: MONO %; Value: 8.3; Range: 0.0-5.0; Abnormal: Above high normal; Units: %; Status: F Test: EOS %; Value: 3.9; Range: 0.0-3.0; Abnormal: Above high normal; Units: %; Status: F Test: BASO %; Value: 0.3; Range: 0.0-1.0; Units: %; Status: F Test: LARGE UNSTAINED CELL %; Value: 2.2; Range: 0.0-4.0; Units: %; Status: F Test: NEUTROPHILS #; Value: 6.2; Range: 1.8-7.7; Units: K/mm3; Status: F Test: LYMPH #; Value: 1.3; Range: 1.5-4.5; Abnormal: Below low normal; Units: K/mm3; Status: F Test: MONO #; Value: 0.7; Range: 0.0-0.8; Units: K/mm3; Status: F Test: EOS #; Value: 0.3; Range: 0.0-0.50; Units: K/mm3; Status: F Test: BASO #; Value: 0.0; Range: 0.0-0.2; Units: K/mm3; Status: F Test: LARGE UNSTAINED CELL #; Value: 0.2; Range: 0.0-0.4; Units: K/mm3; Status: F Lab Order: Cardiac Injury Profile; [facility] 12/15/16 11:25 Test: CPK CREATINE PHOSPHOKINASE; Value: 71; Range: 39-308; Units: U/L; Status: F Test: CK-MB VALUE MASS; Value: 2.3; Range: 0.0-3.6; Units: NG/ML; Status: F Test: MB/CK RELATIVE INDEX; Value: 3.23; Range: < OR =4; Status: F Test Note: ; DIAGNOSIS CRITERIA MMB ng/ml Relative Index (RI) NON-AMI < or = 5 N/A [place] > 5 < or = 4 AMI > 5 > 4 Lab Order: Troponin; [facility] 12/15/16 11:25 Test: TROPONIN I; Value: < 0.02; Range: < 0.10; Units: NG/ML; Status: F Test Note: ; Troponin I Reference Interval for [employer] LOCI: 99th Percentile= 0.00-0.045 ng/ml Risk Stratification: <= 0.10 ng/ml Decreased Risk for Adverse Clinical Events. 0.10-1.50 ng/ml Increased Risk for Adverse Clinical Events. Evaluation of additional criterion and/or repeat testing in 2-6 hours is suggested to rule out myocardial damage. >= 1.50 ng/ml Indicative of Myocardial Injury. Lab Order: Sputum Culture & Gram Stain: assisted pt obtaining - next to sink; [facility] 12/15/16 16:15 Test: GRAM STAIN; Value: GRAM STAIN RESULT; Status: F Test: GRAM STAIN; Value: QUALITY: GOOD; Status: F Test: GRAM STAIN; Value: MODERATE WBCS; Status: F Test: GRAM STAIN; Value: FEW EPITHELIAL CELLS; Status: F Test: GRAM STAIN; Value: FEW GRAM POSITIVE COCCI; Status: F Test: GRAM STAIN; Value: FEW GRAM POSITIVE RODS; Status: F Test: GRAM STAIN; Value: FEW GRAM NEGATIVE RODS; Status: F Lab Order: CBC WITH DIFFERENTIAL; [facility] 07:19 Test: WHITE BLOOD COUNT; Value: 6.3; Range: 4.0-10.0; Units: K/mm3; Status: F Test: RED BLOOD COUNT; Value: 4.51; Range: 4.30-6.10; Units: M/mm3; Status: F Test: HEMOGLOBIN; Value: 14.8; Range: 14.0-18.0; Units: g/dl; Status: F Test: HEMATOCRIT; Value: 44.3; Range: 42.0-52.0; Units: %; Status: F Test: MEAN CORPUSCULAR VOLUME; Value: 98.1; Range: 80.0-96.0; Abnormal: Above high normal; Units: fl; Status: F Test: MEAN CORPUSCULAR HEMOGLOBIN; Value: 32.8; Range: 27.0-33.0; Units: pg; Status: F Test: MEAN CORPUSCULAR HGB CONC; Value: 33.5; Range: 32.0-36.5; Units: g/dl; Status: F Test: RED CELL DISTRIBUTION WIDTH; Value: 12.5; Range: 11.5-14.5; Units: %; Status: F Test: PLATELET COUNT, AUTOMATED; Value: 245; Range: 150-450; Units: k/mm3; Status: F Test: NEUTROPHILS %; Value: 84.6; Range: 36.0-66.0; Abnormal: Above high normal; Units: %; Status: F Test: LYMPH %; Value: 12.0; Range: 24.0-44.0; Abnormal: Below low normal; Units: %; Status: F Test: MONO %; Value: 2.2; Range: 0.0-5.0; Units: %; Status: F Test: EOS %; Value: 0.7; Range: 0.0-3.0; Units: %; Status: F Test: BASO %; Value: 0.0; Range: 0.0-1.0; Units: %; Status: F Test: LARGE UNSTAINED CELL %; Value: 0.6; Range: 0.0-4.0; Units: %; Status: F Test: NEUTROPHILS #; Value: 5.3; Range: 1.8-7.7; Units: K/mm3; Status: F Test: LYMPH #; Value: 0.8; Range: 1.5-4.5; Abnormal: Below low normal; Units: K/mm3; Status: F Test: MONO #; Value: 0.1; Range: 0.0-0.8; Units: K/mm3; Status: F Test: EOS #; Value: 0.0; Range: 0.0-0.50; Units: K/mm3; Status: F Test: BASO #; Value: 0.0; Range: 0.0-0.2; Units: K/mm3; Status: F Test: LARGE UNSTAINED CELL #; Value: 0.0; Range: 0.0-0.4; Units: K/mm3; Status: F Lab Order: COMPLETE COMPHRENSIVE METABOLI; SPEC'M 12/16/16 07:19 Test: GLUCOSE, FASTING; Value: 137; Range: 83-110; Abnormal: Above high normal; Units: MG/DL; Status: F Test: BLOOD UREA NITROGEN; Value: 18; Range: 7-18; Units: MG/DL; Status: F Test: CREATININE FOR GFR; Value: 0.97; Range: 0.70-1.30; Units: MG/DL; Status: F Test: GLOMERULAR FILTRATION RATE; Value: > 60.0; Range: >42; Status: F Test: SODIUM LEVEL; Value: 139; Range: 136-145; Units: MEQ/L; Status: F Test: POTASSIUM SERUM; Value: 4.5; Range: 3.5-5.1; Units: MEQ/L; Status: F Test: CHLORIDE LEVEL; Value: 103; Range: 98-107; Units: MEQ/L; Status: F Test: CARBON DIOXIDE LEVEL; Value: 27; Range: 21-32; Units: MEQ/L; Status: F Test: ANION GAP; Value: 9; Range: 8-16; Units: MEQ/L; Status: F Test: CALCIUM LEVEL; Value: 8.5; Range: 8.8-10.2; Abnormal: Below low normal; Units: MG/DL; Status: F Test: AST/SGOT; Value: 16; Range: 15-37; Units: U/L; Status: F Test: ALT/SGPT; Value: 18; Range: 12-78; Units: U/L; Status: F Test: ALKALINE PHOSPHATASE; Value: 59; Range: 45-117; Units: U/L; Status: F Test: BILIRUBIN,TOTAL; Value: 0.4; Range: 0.2-1.0; Units: MG/DL; Status: F Test: TOTAL PROTEIN; Value: 6.4; Range: 6.4-8.2; Units: GM/DL; Status: F Test: ALBUMIN; Value: 2.7; Range: 3.2-5.2; Abnormal: Below low normal; Units: GM/DL; Status: F Test: ALBUMIN/GLOBULIN RATIO; Value: 0.73; Range: 1.00-1.93; Abnormal: Below low normal; Status: F Test Note: ; Units are mL/min/1.73 m2 Chronic Kidney Disease Staging per NKF: Stage I & II GFR >=60 Normal to Mildly Decreased Stage III GFR 30-59 Moderately Decreased Stage IV GFR 15-29 Severely Decreased Stage V GFR <15 Very Little GFR Left ESRD GFR <15 on BOILERMAKER HELPER Radiology Order: EKG-ADULT Test: EKG-ADULT REASON FOR EXAMINATION: Shortness of Breath; Stationary ECG Study; [facility] - ED; ; Test Date: 2016-12-15; Pat Name: CARMINA OSEGUERA Department:; Room: -; Gender: M Security Management Specialist: bb; : 1940 Requested By: Brenda Bowman; Order Number: [id number] Reading MD: Aaliyah Vang; Measurements; Intervals [place]; Rate: 76 P: 40; GA: 136 QRS: 235; QRSD: 150 T: 50; QT: 473; QTc: 532; Interpretive Statements; ELECTRONIC VENTRICULAR PACEMAKER; ABNORMAL RHYTHM ECG; SINUS RHYTHM; SIMILAR 09/04/16; Electronically Signed On 12-15-2016 20:05:09 EST by Aaliyah Vang; Radiology Order: Chest, 1 View Test: Chest, 1 View REASON FOR EXAMINATION: sob; AP PORTABLE CHEST: 12/15/2016; ; COMPARISON: PET/CT 12/10/2016, CT chest 12/02/2016, 11/12/2016.; ; CLINICAL HISTORY: Dyspnea. Widespread metastatic disease on PET/CT and abnormal; CT chest recently.; ; Multilead AICD pacer again seen and unchanged. Left ventricular configuration of; the heart without gross cardiomegaly. There is a right lateral pleural; collection, new since the 12/02/2016 study, present and smaller on the PET/CT; 12/10/2016. This suggests loculated pleural effusion. Nodular interstitial; infiltrates throughout the right lung with diffuse fibrotic changes on the left.; There is a supraclavicular mass on the right. The aorta is calcified at the; arch, mildly tortuous without aneurysm. Airway intact. There are clips at the; right neck base from prior thyroid surgery.; ; IMPRESSION:; ; 1. Left ventricular configuration of the heart without david edema. Multilead; AICD pacer, unchanged.; ; 2. New since CT of 2 weeks ago but seen on last week's PET/CT, is a right; lateral base pleural density consistent with loculated pleural fluid collection.; The diffuse nodular interstitial infiltrates in the right lung and lesser; underlying interstitial changes of the left lung noted. The nodules on the right; are less apparent than they are by CT and PET/CT recently.; ; ; Signed by; Tom Head MD 12/15/2016 04:23 P; Radiology Order: CT Chest Angio R/O PE Test: CT Chest Angio R/O PE REASON FOR EXAMINATION: sob, cough, r/o pe abnorm cxr; CT pulmonary angiogram: With IV contrast.; ; History: Shortness of breath, cough, question pulmonary embolism. Abnormal; chest x-ray.; ; Comparison studies: Comparison chest CT study December 02, 2016.; ; Contrast dose: 75 cc's of Isovue 370 are administered intravenously.; ; CT technique: Helical scanning is acquired and overlapping 1.5 mm and contiguous; 3 mm axial images are reformatted. In addition, a 3-D work station is deployed; to generate thick slab maximum intensity projection images in sagittal and; coronal imaging projections.; ; CT pulmonary angiographic findings: There is good opacification of the pulmonary; arterial tree and there is no CT evidence of pulmonary embolism. The thoracic; aorta shows multifocal vascular calcification but is otherwise intact. There is; a pacemaker in place. There is a loculated appearing right pleural effusion with; a enlarging collection along the right lateral chest wall increased in size from; the recent PET/CT study December 10, 2016. There is also a component of this; posteriorly and medially which is enlarged since the December 10, 2016 study as; well. There is fairly bulky mediastinal and right hilar lymphadenopathy. This; has progressed in the extent and size since the December 02, 2016 study. There is; evidence of COPD. Multiple pulmonary nodules consistent with metastatic disease; are seen. These nodules are more pronounced than on the 12/02/2016 study.; ; Impression:; ; 1. Progressive multi-loculated appearing right pleural effusion.; ; 2. Progressive pulmonary metastatic disease.; ; 3. Progressive mediastinal and right hilar lymphadenopathy.; ; 4. No CT evidence of pulmonary embolism.; ; ; Signed by; Hossein Peguero MD 12/15/2016 02:35 P; Outcome: 13:04 Decision to Hospitalize by Provider. 12/16 12:17 Patient left the ED. kcs Signatures: Dispatcher [employer] EDMS Brenda Bowman MD MD ml Dennise Merino, RN RN kcs Sho Oliver, Coronary Clinical Specialist Unit deg Nhi Carranza, Reg Reg gb Siva Harris Rosemary,RN RN rs3 Shelia Pulido, GIG TENDER GIG TENDER Little Skelton, RN RN sls1 Emily DavisRN RN js13 Deedee Tang Margaret RN RN mk4 Mariann TroncosoRN RN kas2 Yadira Ku, GIG TENDER GIG TENDER bnb Corrections: (The following items were deleted from the chart) 12/15 11:04 10:30 Cardiovascular: Chest pain is denied js13 11:05 10:30 PSHx: defibrillator insertion; Chart Complete MTDD
--- NOTE | 2016-12-18 13:19 | EDDOCDS ---
Physician Documentation [facility] Name: Kasi Oseguera Age: 76 yrs Sex: Male : 1940 Arrival Date: 12/15/2016 Time: 10:17 Bed Admit Hold Private MD: Disposition: 12/15 13:04 Critical Care:. ml Disposition: 12/15/16 13:04 Hospitalization ordered by Cole Mckeon for Inpatient Admission. Preliminary diagnosis are Pneumonia, unspecified organism, Dyspnea. - Bed requested for PCU. - Status is Inpatient Admission. kcs - Condition is Stable. - Problem is new. - Symptoms are unchanged. Historical: - Allergies: no known allergies; - Home Meds: 1. Calcium + Vitamin D 600 mg calcium- 200 unit oral tab 2. levothyroxine 125 mcg oral tab once daily 3. sotalol 80 mg Oral tab 1 tab 2 times per day 4. lisinopril 2.5 mg Oral tab 1 tab once daily 5. atorvastatin 10 mg oral tab 1 tab once daily 6. Lasix 20 mg Oral tab 1 tab once daily 7. Combivent 18-103 mcg/actuation Inhl aero 2 puffs 4 times per day 8. Incruse Ellipta 62.5 mcg/actuation inhalation dsdv 1 puff once daily 9. albuterol sulfate 90 mcg/actuation Inhl HFAA every 6 hours - PMHx: COPD; Hypercholesterolemia; Hypertension; Hypothyroidism; - PSHx: Thyroidectomy; Prostatectomy; AICD insertion; - Family history: Not pertinent. - Social history: Smoking status: Patient states former smoker of tobacco. No barriers to communication noted, The patient speaks fluent [place]. - : The pt / caregiver states he / she is not on anticoagulants. Home medication list is obtained from the patient. - Exposure Risk Screening:: None identified. Vital Signs: 10:35 BP 140 / 62; Pulse 64; Resp 20; Temp 99.4(O); Pulse Ox 100% on Non-rebreather mask; js13 Weight 72.57 kg / 159.99 lbs; Height 5 ft. 10 in. (177.80 cm); Pain 0/10; 11:14 BP 113 / 59 (auto/); rs3 11:15 Pulse 72 MON; Pulse Ox 92% ; rs3 11:29 BP 107 / 59 (auto/); rs3 11:29 Pulse 72 MON; Pulse Ox 91% ; rs3 11:43 Pulse 70 MON; Pulse Ox 93% ; rs3 11:44 BP 118 / 57 (auto/); rs3 11:59 BP 116 / 58 (auto/); rs3 12:00 Pulse 60 MON; Pulse Ox 93% ; rs3 12:14 BP 126 / 59 (auto/); rs3 12:14 Pulse 64 MON; Pulse Ox 92% ; rs3 14:59 BP 127 / 71 (auto/); kas2 14:59 Pulse 70 MON; Pulse Ox 92% ; kas2 15:14 BP 124 / 76 (auto/); kas2 15:14 Pulse 68 MON; Pulse Ox 93% ; kas2 15:29 BP 133 / 75 (auto/); kas2 15:29 Pulse 72 MON; Pulse Ox 93% ; kas2 15:44 BP 138 / 75 (auto/); kas2 15:44 Pulse 74 MON; Pulse Ox 93% ; kas2 15:59 BP 131 / 71 (auto/); kas2 15:59 Pulse 70 MON; Pulse Ox 92% ; kas2 16:14 BP 139 / 75 (auto/); kas2 16:14 Pulse 74 MON; Pulse Ox 92% ; kas2 16:29 BP 118 / 57 (auto/); kas2 16:29 Pulse 72 MON; Pulse Ox 90% ; kas2 16:44 BP 146 / 75 (auto/); kas2 16:44 Pulse 72 MON; Pulse Ox 91% ; kas2 16:59 BP 161 / 84 (auto/); kas2 16:59 Pulse 72 MON; Pulse Ox 92% ; kas2 17:14 BP 146 / 96 (auto/); kas2 17:14 Pulse 76 MON; Pulse Ox 90% ; kas2 17:31 BP 132 / 88 (auto/); kas2 17:32 Pulse 44 MON; Pulse Ox 92% ; kas2 17:44 BP 130 / 59 (auto/); kas2 17:44 Pulse 82 MON; Pulse Ox 92% ; kas2 17:59 BP 120 / 75 (auto/); kas2 17:59 Pulse 82 MON; Pulse Ox 92% ; kas2 18:14 BP 128 / 58 (auto/); kas2 18:14 Pulse 80 MON; Pulse Ox 90% ; kas2 18:29 BP 117 / 64 (auto/); kas2 18:29 Pulse 80 MON; Pulse Ox 90% ; kas2 18:44 BP 117 / 69 (auto/); kas2 18:44 Pulse 88 MON; Pulse Ox 92% ; kas2 18:59 BP 117 / 68 (auto/); kas2 18:59 Pulse 74 MON; Pulse Ox 91% ; kas2 19:14 BP 113 / 66 (auto/); kas2 19:14 Pulse 80 MON; Pulse Ox 91% ; kas2 10:35 Body Mass Index 22.96 (72.57 kg, 177.80 cm) js13 MDM: 10:35 ECG WITH READING ER PHYS+CARDIAG ordered. EDMS 11:10 -Blood Culture (Adults Only), peripheral from different site, or from device/port/PICC ml etc. if present ordered. 11:10 Belt Cutter/Pulse Ox/q 15 min VS ordered. ml 11:10 IV Saline Lock ordered. ml 11:10 Oxygen at 4L/Min NC or Home dosage ordered. ml 11:10 Rhythm Strip to chart ordered. ml 11:10 Albuterol 5 mg Nebulizer once ordered. ml 11:10 Albuterol-Ipratropium 3 ml Inhalation once ordered. ml 11:10 Call Respiratory ordered. ml 11:11 -Arterial Blood Gas Ordered. EDMS 11:11 B-Type Natiuretic Peptide Ordered. EDMS 11:11 Basic Metabolic Profile Ordered. EDMS 11:11 CBC with Diff Ordered. EDMS 11:11 Cardiac Injury Profile Ordered. EDMS 11:11 Troponin Ordered. EDMS 11:11 -Blood Culture Ordered. EDMS 11:11 Call Respiratory complete. js13 11:11 Chest, 1 View Ordered. EDMS 11:46 -Blood Culture (Adults Only), peripheral from different site, or from device/port/PICC deg etc. if present complete. 11:47 BLOOD CULTURES Ordered. EDMS 12:42 -Arterial Blood Gas Reviewed. ml 12:42 B-Type Natiuretic Peptide Reviewed. ml 12:42 Basic Metabolic Profile Reviewed. ml 12:42 CBC with Diff Reviewed. ml 12:42 Cardiac Injury Profile Reviewed. ml 12:42 Troponin Reviewed. ml 12:42 Chest, 1 View Reviewed. ml 12:43 BED REQUEST+ADM ordered. EDMS 12:44 CT Chest Angio R/O PE Ordered. EDMS 12:44 cefTRIAXone 1 grams IVPB once over 30 mins; dilute in 50mL of NS or D5W ordered. ml 12:44 azithromycin 500 mg IVPB once over 1 hrs; dilute in 250mL of D5W or NS ordered. ml 14:38 Sputum Culture & Gram Stain: assisted pt obtaining - next to sink Ordered. EDMS 14:57 LOW FAT LOW CHOLESTEROL DIET ordered. EDMS 15:04 Admission / Observation Status ordered. EDMS 15:30 CT Chest Angio R/O PE Reviewed. ml 15:46 Financial registration complete. zo 15:49 [facility] [place] Payment Agreement was scanned into [employer] and attached to record. zo 19:31 CBC WITH DIFFERENTIAL Ordered. EDMS 19:32 COMPLETE COMPHRENSIVE METABOLI Ordered. EDMS 0207 08:24 CBC WITH DIFFERENTIAL Reviewed. gk1 08:24 COMPLETE COMPHRENSIVE METABOLI Reviewed. gk1 08:24 EKG-ADULT Reviewed. gk1 08:24 Chest, 1 View Reviewed. gk1 10:02 T-Sheet-- Draft Copy was scanned into [employer] and attached to record. gb 10:12 ECHOCARD,DOPPLER/COLOR FLOW ordered. EDMS 15:31 ECG/EKG was scanned into [employer] and attached to record. gb 15:31 Radiology Report was scanned into [employer] and attached to record. gb 15:31 Rhythm Strip was scanned into [employer] and attached to record. gb Administered Medications: 12/15 11:21 Drug: Albuterol 5 mg [albuterol sulfate 2.5 mg/0.5 mL solution for nebulization (1 mL)] kjn Route: Nebulizer; 11:21 Drug: Albuterol-Ipratropium 3 ml [ipratropium-albuterol 0.5 mg-3 mg(2.5 mg base)/3 mL kjn nebulization soln (3 mL)] Route: Inhalation; 13:59 Drug: cefTRIAXone 1 grams [ceftriaxone 1 gram solution for injection] Route: IVPB; rs3 Infused Over: 30 mins; Site: left forearm; 16:01 Follow up: IV Status: Completed infusion rs3 14:03 Drug: azithromycin 500 mg [azithromycin 500 mg intravenous solution] Route: IVPB; mk4 Infused Over: 1 hrs; Site: left antecubital; 16:01 Follow up: IV Status: Completed infusion rs3 Critical Care Time: 13:04 Critical care time: Bedside Care: 90 minutes, Consultation: 10 minutes. Total time: 100 ml minutes Signatures: Dispatcher [employer] EDBrenda Austin MD MD ml Sleeman, Kacey, RN RN kcs Sho Oliver, Cigar Head Piercer Unit deg Dillon, Nhi, Reg Reg gb Steven, Emily Orellana,RN RN js13 Isabella Reece RN RN [facility], [facility] Kelly Vazquez RN rs3 Deedee Tang Margaret RN mk4 The chart was reviewed and I authenticate all verbal orders and agree with the evaluation and treatment provided.Corrections: (The following items were deleted from the chart) 11:05 10:30 PSHx: defibrillator insertion; js13 js13 Attachments: 15:49 [facility] Payment Agreement zo 12/16 10:02 T-Sheet-- Draft Copy gb 15:31 ECG/EKG gb Chart Complete MTDD
--- NOTE | 2016-12-18 13:19 | EDDOCDS ---
Physician Documentation [facility] Name: Kasi Oseguera Age: 76 yrs Sex: Male : 1940 Arrival Date: 12/15/2016 Time: 10:17 Bed Admit Hold Private MD: Disposition: 12/15 13:04 Critical Care:. ml Disposition: 12/15/16 13:04 Hospitalization ordered by Cole Mckeon for Inpatient Admission. Preliminary diagnosis are Pneumonia, unspecified organism, Dyspnea. - Bed requested for PCU. - Status is Inpatient Admission. kcs - Condition is Stable. - Problem is new. - Symptoms are unchanged. Historical: - Allergies: no known allergies; - Home Meds: 1. Calcium + Vitamin D 600 mg calcium- 200 unit oral tab 2. levothyroxine 125 mcg oral tab once daily 3. sotalol 80 mg Oral tab 1 tab 2 times per day 4. lisinopril 2.5 mg Oral tab 1 tab once daily 5. atorvastatin 10 mg oral tab 1 tab once daily 6. Lasix 20 mg Oral tab 1 tab once daily 7. Combivent 18-103 mcg/actuation Inhl aero 2 puffs 4 times per day 8. Incruse Ellipta 62.5 mcg/actuation inhalation dsdv 1 puff once daily 9. albuterol sulfate 90 mcg/actuation Inhl HFAA every 6 hours - PMHx: COPD; Hypercholesterolemia; Hypertension; Hypothyroidism; - PSHx: Thyroidectomy; Prostatectomy; AICD insertion; - Family history: Not pertinent. - Social history: Smoking status: Patient states former smoker of tobacco. No barriers to communication noted, The patient speaks fluent [place]. - : The pt / caregiver states he / she is not on anticoagulants. Home medication list is obtained from the patient. - Exposure Risk Screening:: None identified. Vital Signs: 10:35 BP 140 / 62; Pulse 64; Resp 20; Temp 99.4(O); Pulse Ox 100% on Non-rebreather mask; js13 Weight 72.57 kg / 159.99 lbs; Height 5 ft. 10 in. (177.80 cm); Pain 0/10; 11:14 BP 113 / 59 (auto/); rs3 11:15 Pulse 72 MON; Pulse Ox 92% ; rs3 11:29 BP 107 / 59 (auto/); rs3 11:29 Pulse 72 MON; Pulse Ox 91% ; rs3 11:43 Pulse 70 MON; Pulse Ox 93% ; rs3 11:44 BP 118 / 57 (auto/); rs3 11:59 BP 116 / 58 (auto/); rs3 12:00 Pulse 60 MON; Pulse Ox 93% ; rs3 12:14 BP 126 / 59 (auto/); rs3 12:14 Pulse 64 MON; Pulse Ox 92% ; rs3 14:59 BP 127 / 71 (auto/); kas2 14:59 Pulse 70 MON; Pulse Ox 92% ; kas2 15:14 BP 124 / 76 (auto/); kas2 15:14 Pulse 68 MON; Pulse Ox 93% ; kas2 15:29 BP 133 / 75 (auto/); kas2 15:29 Pulse 72 MON; Pulse Ox 93% ; kas2 15:44 BP 138 / 75 (auto/); kas2 15:44 Pulse 74 MON; Pulse Ox 93% ; kas2 15:59 BP 131 / 71 (auto/); kas2 15:59 Pulse 70 MON; Pulse Ox 92% ; kas2 16:14 BP 139 / 75 (auto/); kas2 16:14 Pulse 74 MON; Pulse Ox 92% ; kas2 16:29 BP 118 / 57 (auto/); kas2 16:29 Pulse 72 MON; Pulse Ox 90% ; kas2 16:44 BP 146 / 75 (auto/); kas2 16:44 Pulse 72 MON; Pulse Ox 91% ; kas2 16:59 BP 161 / 84 (auto/); kas2 16:59 Pulse 72 MON; Pulse Ox 92% ; kas2 17:14 BP 146 / 96 (auto/); kas2 17:14 Pulse 76 MON; Pulse Ox 90% ; kas2 17:31 BP 132 / 88 (auto/); kas2 17:32 Pulse 44 MON; Pulse Ox 92% ; kas2 17:44 BP 130 / 59 (auto/); kas2 17:44 Pulse 82 MON; Pulse Ox 92% ; kas2 17:59 BP 120 / 75 (auto/); kas2 17:59 Pulse 82 MON; Pulse Ox 92% ; kas2 18:14 BP 128 / 58 (auto/); kas2 18:14 Pulse 80 MON; Pulse Ox 90% ; kas2 18:29 BP 117 / 64 (auto/); kas2 18:29 Pulse 80 MON; Pulse Ox 90% ; kas2 18:44 BP 117 / 69 (auto/); kas2 18:44 Pulse 88 MON; Pulse Ox 92% ; kas2 18:59 BP 117 / 68 (auto/); kas2 18:59 Pulse 74 MON; Pulse Ox 91% ; kas2 19:14 BP 113 / 66 (auto/); kas2 19:14 Pulse 80 MON; Pulse Ox 91% ; kas2 10:35 Body Mass Index 22.96 (72.57 kg, 177.80 cm) js13 MDM: 10:35 ECG WITH READING ER PHYS+CARDIAG ordered. EDMS 11:10 -Blood Culture (Adults Only), peripheral from different site, or from device/port/PICC ml etc. if present ordered. 11:10 Bottle Label Inspector/Pulse Ox/q 15 min VS ordered. ml 11:10 IV Saline Lock ordered. ml 11:10 Oxygen at 4L/Min NC or Home dosage ordered. ml 11:10 Rhythm Strip to chart ordered. ml 11:10 Albuterol 5 mg Nebulizer once ordered. ml 11:10 Albuterol-Ipratropium 3 ml Inhalation once ordered. ml 11:10 Call Respiratory ordered. ml 11:11 -Arterial Blood Gas Ordered. EDMS 11:11 B-Type Natiuretic Peptide Ordered. EDMS 11:11 Basic Metabolic Profile Ordered. EDMS 11:11 CBC with Diff Ordered. EDMS 11:11 Cardiac Injury Profile Ordered. EDMS 11:11 Troponin Ordered. EDMS 11:11 -Blood Culture Ordered. EDMS 11:11 Call Respiratory complete. js13 11:11 Chest, 1 View Ordered. EDMS 11:46 -Blood Culture (Adults Only), peripheral from different site, or from device/port/PICC deg etc. if present complete. 11:47 BLOOD CULTURES Ordered. EDMS 12:42 -Arterial Blood Gas Reviewed. ml 12:42 B-Type Natiuretic Peptide Reviewed. ml 12:42 Basic Metabolic Profile Reviewed. ml 12:42 CBC with Diff Reviewed. ml 12:42 Cardiac Injury Profile Reviewed. ml 12:42 Troponin Reviewed. ml 12:42 Chest, 1 View Reviewed. ml 12:43 BED REQUEST+ADM ordered. EDMS 12:44 CT Chest Angio R/O PE Ordered. EDMS 12:44 cefTRIAXone 1 grams IVPB once over 30 mins; dilute in 50mL of NS or D5W ordered. ml 12:44 azithromycin 500 mg IVPB once over 1 hrs; dilute in 250mL of D5W or NS ordered. ml 14:38 Sputum Culture & Gram Stain: assisted pt obtaining - next to sink Ordered. EDMS 14:57 LOW FAT LOW CHOLESTEROL DIET ordered. EDMS 15:04 Admission / Observation Status ordered. EDMS 15:30 CT Chest Angio R/O PE Reviewed. ml 15:46 Financial registration complete. zo 15:49 [facility] [place] Payment Agreement was scanned into [employer] and attached to record. zo 19:31 CBC WITH DIFFERENTIAL Ordered. EDMS 19:32 COMPLETE COMPHRENSIVE METABOLI Ordered. EDMS 0207 08:24 CBC WITH DIFFERENTIAL Reviewed. gk1 08:24 COMPLETE COMPHRENSIVE METABOLI Reviewed. gk1 08:24 EKG-ADULT Reviewed. gk1 08:24 Chest, 1 View Reviewed. gk1 10:02 T-Sheet-- Draft Copy was scanned into [employer] and attached to record. gb 10:12 ECHOCARD,DOPPLER/COLOR FLOW ordered. EDMS 15:31 ECG/EKG was scanned into [employer] and attached to record. gb 15:31 Radiology Report was scanned into [employer] and attached to record. gb 15:31 Rhythm Strip was scanned into [employer] and attached to record. gb Administered Medications: 12/15 11:21 Drug: Albuterol 5 mg [albuterol sulfate 2.5 mg/0.5 mL solution for nebulization (1 mL)] kjn Route: Nebulizer; 11:21 Drug: Albuterol-Ipratropium 3 ml [ipratropium-albuterol 0.5 mg-3 mg(2.5 mg base)/3 mL kjn nebulization soln (3 mL)] Route: Inhalation; 13:59 Drug: cefTRIAXone 1 grams [ceftriaxone 1 gram solution for injection] Route: IVPB; rs3 Infused Over: 30 mins; Site: left forearm; 16:01 Follow up: IV Status: Completed infusion rs3 14:03 Drug: azithromycin 500 mg [azithromycin 500 mg intravenous solution] Route: IVPB; mk4 Infused Over: 1 hrs; Site: left antecubital; 16:01 Follow up: IV Status: Completed infusion rs3 Critical Care Time: 13:04 Critical care time: Bedside Care: 90 minutes, Consultation: 10 minutes. Total time: 100 ml minutes Signatures: Dispatcher [employer] EDBrenda Austin MD MD ml Sleeman, Kacey, RN RN kcs Sho Oliver, [employer] Bearing Polisher Unit deg Dillon, Nhi, Reg Reg gb Steven, Emily Orellana,RN RN js13 Isabella Reece RN RN [facility] [place], [facility] Kelly Vazquez RN rs3 Deedee Tang Margaret RN mk4 The chart was reviewed and I authenticate all verbal orders and agree with the evaluation and treatment provided.Corrections: (The following items were deleted from the chart) 11:05 10:30 PSHx: defibrillator insertion; js13 js13 Attachments: 15:49 [facility] Payment Agreement zo 12/16 10:02 T-Sheet-- Draft Copy gb 15:31 ECG/EKG gb Chart Complete MTDD
[2016-12-18] MEDS: ATORVASTATIN 10 MG TAB PO SCH (21:45)
[2016-12-19] MEDS: PIPERACILLIN/TAZOBACTAM SOD 3.375 GM in D5W MINI-BAG PLUS 50 ML IV SCH ×4 (00:30→17:56)
[2016-12-19] MEDS ORDERED: SLF 3 ML SYR IV PRN (01:45)
[2016-12-19] MEDS: IPRATROPIUM 0.5MG/ALBUTEROL 2.5MG INH SOL UD 3ML (DUONEB)(J7620) NEB SCH ×4 (02:42→21:05)
[2016-12-19] MEDS: GENTAMICIN 120 MG in D5W 50 ML IV SCH ×2 (03:17→13:42)
[2016-12-19] MEDS: LEVOTHYROXINE 0.125 MG TAB (125 MCG) PO SCH (05:51)
[2016-12-19] MEDS: SLF 3 ML SYR IV SCH ×3 (05:52→21:50)
[2016-12-19 05:53] VITALS: BP 139/77
[2016-12-19 06:03] LABS: BASO % 0.1 % (0.0-1.0); EOS % 0.2 % (0.0-3.0); LARGE UNSTAINED CELL # 0.2 K/mm3 (0.0-0.4); LARGE UNSTAINED CELL % 1.7 % (0.0-4.0); LYMPH # 1.5 K/mm3 (1.5-4.5); MEAN CORPUSCULAR HEMOGLOBIN 32.3 pg (27.0-33.0); MEAN CORPUSCULAR HGB CONC 32.4 g/dl (32.0-36.5); MEAN CORPUSCULAR VOLUME 99.9 fl (80.0-96.0); MONO % 9.9 % (0.0-5.0); NEUTROPHILS # 7.4 K/mm3 (1.8-7.7); PLATELET COUNT, AUTOMATED 244 k/mm3 (150-450); RED CELL DISTRIBUTION WIDTH 12.6 % (11.5-14.5); WHITE BLOOD COUNT 9.9 K/mm3 (4.0-10.0)
[2016-12-19 06:18] LABS: ALBUMIN 2.6 GM/DL (3.2-5.2); ALBUMIN/GLOBULIN RATIO 0.81 (1.00-1.93); ALKALINE PHOSPHATASE 48 U/L (45-117); ALT/SGPT 20 U/L (12-78); ANION GAP 8 MEQ/L (8-16); AST/SGOT 13 U/L (15-37); BILIRUBIN,TOTAL 0.3 MG/DL (0.2-1.0); BLOOD UREA NITROGEN 29 MG/DL (7-18); CALCIUM LEVEL 8.4 MG/DL (8.8-10.2); CARBON DIOXIDE LEVEL 28 MEQ/L (21-32); CHLORIDE LEVEL 105 MEQ/L (98-107); CREATININE FOR GFR 1.04 MG/DL (0.70-1.30); GLOMERULAR FILTRATION RATE > 60.0 (>42); GLUCOSE, FASTING 80 MG/DL (83-110); POTASSIUM SERUM 4.7 MEQ/L (3.5-5.1); SODIUM LEVEL 141 MEQ/L (136-145); TOTAL PROTEIN 5.8 GM/DL (6.4-8.2)
[2016-12-19 07:25] VITALS: BP 119/61
--- NOTE | 2016-12-19 08:54 | IPNPDOC ---
Subjective General Date Seen The patient was seen on 12/19/16. Subjective Chief Complaint/HPI The patient is a 76-year-old male admitted with a reason for visit of COPD. Events since last encounter Denies c/o. states feels breathing is improving. Constitutional: Denies: Chills, Fever, Night Sweats Eyes: Denies: Conjunctivae inflammation, Eyelid inflammation, Other, Pain, Redness, Vision change Pulmonary: Reports: Cough, Dyspnea Cardiovascular: Denies: Chest Pain, Lt Headedness, Orthopnea, Palpitations, Paroxysmal Noc. Dyspnea Gastrointestinal: Denies: Abdominal Pain, Constipation, Diarrhea, Nausea, Vomiting Genitourinary: Denies: Dysuria, Frequency, Incontinence, Retention Objective Physical Examination General Exam: Positive: Alert, No Acute Distress Neck Exam: Positive: Other (mass to right supraclvicular area. hard, non-tender ), Supple, Negative: JVD Chest Exam: Positive: Clear to auscultation Heart Exam: Positive: Rate Normal, Regular Rhythm Telemetry: Positive: No significant arrhythmia Abdomen Exam: Positive: Normal bowel sounds, Soft, Negative: Tenderness Extremity Exam: Negative: Edema Skin Exam: Positive: Nl turgor and temperature Psych Exam: Positive: Mental status NL Assessment /Plan Problems Problems: (1) Pulmonary infiltrate Status: Acute Problem Specific Plan: Consult Specialist, Monitor Clinically, Repeat Labs Problem Text: 12/19/2016: CT dressing with minimal drainage. Will continue UV abx for 5-7 days. WBC 9,000 today. 12/18 - Pt has empyema. Dr Mills following and removed chest tube yesterday. Sputum cx positive for Pseudomonas and Enterobacter cloacae. On Zosyn and Gent (Zithro and Ceftriaxone were d/c'ed yesterday). WBC down slightly to 12.3 today. IV solumedrol was d/c'ed and now on PO Prednisone. Plan is to treat the infection and then set up with Dr Feldman to begin chemo once infection has been treated. 12/17 - Pt is being followed by Dr Mills, who placed a chest tube yesterday and removed the chest tube today. Concern for malignant pleural effusion, however it appears that it is an empyema. Additionally, WBC up, and sputum cx positive for Pseudomonas and Enterobacter cloacae. Plan was going to be d/c home with follow up with Dr Feldman tomorrow to start chemo, however, now given the empyema and the positive sputum cx, will need to keep the pt longer for continued abx treatment for pneumonia caused by those organisms. Will d/c the Zithro and Ceftriaxone, and change to Zosyn and Gent. Will consult pharmacy to assist with gent dosing. Getting IV Solumedrol. Getting supp O2. Agree with need for antibiotic therapy for pseudomonas and enterobacter. he wouldn't be able to proceed with chemo with this infection. The pleural fluid showed some wbc but impressively low pH, elevated LDH, c/w empyema. Drainage has stopped so Dr. Mills removed Chest tube today. (2) Empyema Status: Acute Problem Specific Plan: Consult Specialist, Monitor Clinically, Repeat Labs Problem Text: See above. (3) Thyroid cancer Status: Chronic Problem Specific Plan: Monitor Clinically Problem Text: Pt will need to follow up with Dr Feldman at d/c to likely begin chemo. Case has been discussed with Dr Feldman. Pt getting radiation therapy with Dr Mcqueen. 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 Case has been discussed with Dr Feldman. Pt getting radiation therapy with Dr Mcqueen. The above plan on hold until infection is suppressed. (5) Hypothyroidism Status: Chronic Problem Specific Plan: Monitor Clinically Problem Text: On Synthroid. (6) HTN (hypertension) Status: Chronic Problem Specific Plan: Monitor Clinically Problem Text: On Lisinopril and sotolol. Plan/VTE VTE Prophylaxis Ordered?: Yes VS, I&O, 24H, [facility] Vital Signs/I&O Vital Signs Date Time Temp Pulse Resp B/P Pulse Ox O2 Delivery O2 Flow Rate FiO2 12/19/16 05:53 96.7 68 18 139/77 94 Nasal Cannula 3.0 I&O- Last 24 Hours up to 6 AM 12/19/16 06:00 Intake Total 1350 ml Output Total 2100 ml Balance -750 ml Laboratory Data 24H LABS Laboratory Tests 2 12/18/16 12:57: Gentamicin Level Trough 1.6 12/18/16 15:46: Gentamicin Level Peak 6.4 12/19/16 05:46: Blood Urea Nitrogen 29H, Creatinine 1.04, Sodium Level 141, Potassium Level 4.7 , Chloride Level 105, Carbon Dioxide Level 28, Calcium Level 8.4L, Aspartate Amino Transf (AST/SGOT) 13L, Alanine Aminotransferase (ALT/SGPT) 20, Alkaline Phosphatase 48, Total Bilirubin 0.3, Total Protein 5.8L, Albumin 2.6L, Albumin/ Globulin Ratio 0.81L, Anion Gap 8, White Blood Count 9.9, Red Blood Count 4.25L , Hemoglobin 13.7L, Hematocrit 42.4, Mean Corpuscular Volume 99.9H, Mean Corpuscular Hemoglobin 32.3, Mean Corpuscular Hemoglobin Concent 32.4, Red Cell Distribution Width 12.6, Platelet Count 244, Neutrophils (%) (Auto) 75.0H, Lymphocytes (%) (Auto) 13.0L, Monocytes (%) (Auto) 9.9H, Eosinophils (%) (Auto) 0.2, Basophils (%) (Auto) 0.1, Neutrophils # (Auto) 7.4, Lymphocytes # (Auto) 1.5, Monocytes # (Auto) 1.0H, Eosinophils # (Auto) 0.0, Basophils # (Auto) 0.0, Glomerular Filtration Rate > 60.0, Large Unclassified Cells # 0.2, Large Unclassified Cells % 1.7 CBC/BMP Laboratory Tests 12/19/16 05:46 Calcium Level 8.4 L, Aspartate Amino Transf (AST/SGOT) 13 L, Alanine Aminotransferase (ALT/SGPT) 20, Alkaline Phosphatase 48, Total Bilirubin 0.3, Total Protein 5.8 L, Albumin 2.6 L, Red Blood Count 4.25 L, Mean Corpuscular Volume 99.9 H, Mean Corpuscular Hemoglobin 32.3, Mean Corpuscular Hemoglobin Concent 32.4, Red Cell Distribution Width 12.6, Neutrophils (%) (Auto) 75.0 H, Lymphocytes (%) (Auto) 13.0 L, Monocytes (%) (Auto) 9.9 H, Eosinophils (%) (Auto ) 0.2, Basophils (%) (Auto) 0.1, Neutrophils # (Auto) 7.4, Lymphocytes # (Auto) 1.5, Monocytes # (Auto) 1.0 H, Eosinophils # (Auto) 0.0, Basophils # (Auto) 0.0 Microbiology Microbiology 12/15/16 Blood Culture - Preliminary, Resulted No Growth after 72 hours. All specime... 12/15/16 Blood Culture - Preliminary, Resulted No Growth after 72 hours. All specime... 12/16/16 Acid Fast Stain - Final, Resulted 12/16/16 Mycobacterial Culture, Resulted Pending 12/16/16 Fungal Smear, Resulted Pending 12/16/16 Fungal Culture, Resulted Pending 12/16/16 Gram Stain - Final, Complete 12/16/16 Anaerobic Culture - Final, Complete 12/16/16 Body Fluid Culture - Final, Complete 12/15/16 Gram Stain - Final, Complete 12/15/16 Sputum Culture - Final, Complete Pseudomonas Aeruginosa Enterobacter Cloacae Complex Attending Note Attending Note Agree with findings and plan as outlined by Sona Narayan Dec 19, 2016 08:54 Bk Limon MD Dec 19, 2016 12:46
--- NOTE | 2016-12-19 09:31 | REP ---
PA and lateral chest: Comparisons 12/18/2016. There is a small right apical pneumothorax, unchanged. There is a soft tissue mass in the right supraclavicular area, unchanged. There is diffuse interstitial coarsening throughout the right lung with superimposed ill-defined nodular densities in the right lung, unchanged. Right costophrenic angle is effaced, unchanged. Left lung is clear, unchanged. Cardiac size is normal. There is a triple lead pacemaker. There are surgical clips in the soft tissues of the neck on the right. These are unchanged. Impression: There is no significant interval change. Signed by Kyle Green MD 12/19/2016 09:22 A
[2016-12-19] MEDS: predniSONE 20 MG TAB PO SCH (10:08)
[2016-12-19] MEDS: PANTOPRAZOLE 40MG TAB (PROTONIX) PO SCH (10:08)
[2016-12-19] MEDS: ENOXAPARIN 30 MG/0.3 ML SYR (J1650) SC SCH (10:08)
[2016-12-19] MEDS: MOM 30ML SUSPENSION UDC PO SCH (10:08)
[2016-12-19] MEDS: DOCUSATE SODIUM 100 MG CAP PO SCH ×2 (10:09→21:49)
[2016-12-19] MEDS: SOTALOL HCL 80 MG TAB PO SCH ×2 (10:09→21:50)
[2016-12-19] MEDS: FUROSEMIDE 20 MG TAB PO SCH ×2 (10:09→17:56)
[2016-12-19 12:00] VITALS: BP 116/69
[2016-12-19] MEDS: LISINOPRIL *2.5 MG* TAB PO SCH (12:13)
--- NOTE | 2016-12-19 13:31 | IPN ---
DATE: 12/18/2016 Mr. Oseguera is putting out very little out of his chest tube. He has been able to breathe much better. Pain is being well controlled at the chest tube insertion site. His chest x-rays shows his chest is completely evacuated of fluid. His vital signs show a T-max of 96.8 with a heart rate that ranges between 50 and 71 in a sinus rhythm, a respiratory rate that is constant at 20, who is 94% to 100% saturated on 2 liters nasal cannula and whose blood pressure is ranging between 126/77 to 98/61. His intake and output the past 24 hours has been recorded as 1310 in and 725 out for a negativity of 415 mL. He has only put out 25 mL from the chest tube and there is no air leak. He weighs 72.6 kg today compared to 73.6 kg yesterday. On physical examination, his: Lungs: Show equal breath sounds on either side. He has bibasilar coarse rhonchi, most of which clear with coughing. Percussion note is full to the diaphragm. Cardiac Exam: Without murmurs, clicks, gallops, or rubs. I cannot feel his PMI. S1, S2 are normal. Abdomen: Soft. Nontender. Bowel sounds are positive. There is no hepatomegaly. No costovertebral angle (CVA) tenderness. Extremities: Show no pretibial edema. No calf tenderness. No differential swelling of the upper extremities. Skin: Warm, dry and perfused. Without cyanosis or mottling, including that of the nail beds and knees. Neck: Supple. There is no jugular venous distention. No subcutaneous emphysema. Trachea is midline. Mouth: Shows his mucous membranes to be pink and moist. Lips and commissures are without lesions. There is no thrush. Eyes: Show his pupils to be equal and reactive. Extraocular movements intact. Sclerae nonicteric. Neurologic: Shows II-XII intact along with gross motor and gross sensation intact. Gait is not tested. Psychiatric shows him to be awake, alert, and oriented times three with appropriate mood and affect and conversational. The supraclavicular mass on the right side is now marked and he has received his first dose of radiation therapy. His white count today is 12.3 with a hemoglobin and hematocrit of 13.5 and 41.7. Platelet count is 250. Differential shows 86% neutrophils, 7% lymphocytes, 4% monocytes. There are no immature forms and no toxic granulations. Electrolytes are normal with a BUN and creatinine of 32 and 1.09 and a glucose of 112 and calcium 8.4. AST and ALT are normal at 14 and 19 respectively with an albumin of 2.6. There are no blood gases on him today. His gentamicin peak is 6.4, within the therapeutic window. MICROBIOLOGY: There are no changes in his microbiology with the sputum growing out Pseudomonas aeruginosa and Enterobacter cloacae. Pleural fluid cultures are negative. His chest x-ray today is noted above and shows his lung fully expanded to the chest wall. He has a small air space at the cupula of the right lung. All the fluid is gone. His chest tube was removed yesterday. There looks to be no reaccumulation of the fluid. Lateral chest x-ray shows a posterior infiltrate in the inferior portion of the chest. IMPRESSION: 1. Right empyema. 2. Left lower lobe pneumonia. 3. Widely metastatic anaplastic thyroid carcinoma. 4. Hypertension. 5. Chronic obstructive pulmonary disease (COPD). 6. Hyperlipidemia. 7. Hypothyroidism. PLAN AND DISCUSSION: As his chest is not reaccumulating fluid and his surgical empyema is addressed, I will sign off the case. As he is growing Pseudomonas, he should be in the hospital for at least another four days with antibiotics. At the end of his course, he ought to be referred back to oncology for definitive chemotherapy. We should continue to follow his x-rays. I am always available should I be needed.
--- NOTE | 2016-12-19 14:01 | IPN ---
DATE: 12/19/2016 Yesterday, my intention was to sign off Mr. Oseguera's care; however, this morning the nursing staff noted a large amount of pus emanating from the chest tube insertion site. His pain is well controlled at the insertion site. I saw a little bit of pus under a new dressing. I have no doubt that that is exactly what it is as he has had the empyema. I have instructed them to merely dress the wound and let it drain as it is better out than in. His vital signs show a T-max of 96.7 with a heart rate that ranges between 71 and 68 in a sinus rhythm, a respiratory rate of 22 to 18 without the use of accessory muscles who is 94% to 91% saturated on 2-3 liters of nasal cannula and whose blood pressure is ranging between 116/69 to 139/77. His intake and output the past 24 hours has been recorded as 1750 in and 1925 out for a negativity of 175 mL. Weight today is 72.3 compared to 72.6 kg yesterday. On physical examination, he has crackles and coarse rhonchi in the right lower hemithorax. Not all these clear with coughing. Left lung also shows coarse rhonchi, most of which do clear with coughing. Percussion note is full to the diaphragm. Cardiac Exam: Without murmurs, clicks, gallops, or rubs. I cannot feel his PMI. S1, S2 are normal. Abdomen: Soft. Nontender. Bowel sounds are positive. There is no hepatomegaly. No costovertebral angle (CVA) tenderness. Extremities: Show no pretibial edema. No calf tenderness. No differential swelling of the upper extremities. Skin: Warm, dry and perfused. Without cyanosis or mottling, including that of the nail beds and knees. Neck: Supple. There is no jugular venous distention. No subcutaneous emphysema. Trachea is midline. Mouth: Shows his mucous membranes to be pink and moist. Lips and commissures are without lesions. There is no thrush. Eyes: Show his pupils to be equal and reactive. Extraocular movements intact. Sclerae nonicteric. Neurologic: Shows II-XII intact along with gross motor and gross sensation intact. Gait is not tested. Psychiatric shows him to be awake, alert, and oriented times three with appropriate mood and affect and conversational. His supraclavicular mass is still present and is undergoing radiation. His white count today is 9.0 down from 12.3 yesterday. Hemoglobin and hematocrit is 13.7 and 42.4, essentially unchanged from yesterday, with a platelet count of 244. Differential shows 75% neutrophils, 13% lymphocytes, and 9% monocytes. There are no immature forms and no toxic granulations. Electrolytes are normal with a BUN and creatinine of 29 and 1.04 with a glucose of 80 and a calcium of 8.4. Corresponding albumin is 2.6. His gentamicin peak yesterday was 6.4 and trough is 1.6, well within the therapeutic window. There is no new microbiology with his sputum growing out Pseudomonas aeruginosa and Enterobacter cloacae on 12/15/2016. Nothing is growing out from the pleural fluid. His chest x-ray today shows the lung again fully expanded to the chest wall. There is some minor blunting of the right costophrenic angle. He has diffuse vascularity and/or infiltrates throughout the right lung as compared to his left lung which looks to be relatively clear. There is a small air space at the top of the cupula. The lateral film shows a mild infiltrative process posteriorly. Costophrenic angles are sharp. IMPRESSION: 1. Right empyema, continuing to drain. 2. Left lower lobe pneumonia, Pseudomonas and Enterobacter cloacae positive. 3. Widely metastatic anaplastic thyroid carcinoma. 4. Hypertension. 5. Chronic obstructive pulmonary disease (COPD). 6. Hyperlipidemia. 7. Hypothyroidism. PLAN AND DISCUSSION: I have reassured the nurses that the drainage is better out than in. His chest x-ray does not show any reaccumulation of fluid. He continues on antibiotics appropriately. He is continuing on radiation for supraclavicular mass on the right side. I will therefore follow him until the fluid stops and we are convinced that he is not going to reaccumulate his empyema.
[2016-12-19 16:00] VITALS: BP 110/60
[2016-12-19 20:00] VITALS: BP 126/78; PULSE 64
[2016-12-19] MEDS: ATORVASTATIN 10 MG TAB PO SCH (21:49)
[2016-12-19 23:59] VITALS: BP 156/79
[2016-12-20] VITALS (7 sets, daily range): BP systolic 102–128; BP diastolic 66–79; PULSE 56–61
[2016-12-20] MEDS: PIPERACILLIN/TAZOBACTAM SOD 3.375 GM in D5W MINI-BAG PLUS 50 ML IV SCH ×5 (00:12→23:51)
[2016-12-20] MEDS: GENTAMICIN 120 MG in D5W 50 ML IV SCH ×2 (02:29→13:57)
[2016-12-20] MEDS: IPRATROPIUM 0.5MG/ALBUTEROL 2.5MG INH SOL UD 3ML (DUONEB)(J7620) NEB SCH ×4 (02:37→19:31)
[2016-12-20 05:35] LABS: BASO % 0.1 % (0.0-1.0); EOS % 0.6 % (0.0-3.0); LARGE UNSTAINED CELL # 0.2 K/mm3 (0.0-0.4); LYMPH # 1.5 K/mm3 (1.5-4.5); LYMPH % 16.8 % (24.0-44.0); MEAN CORPUSCULAR HEMOGLOBIN 32.7 pg (27.0-33.0); MEAN CORPUSCULAR HGB CONC 32.5 g/dl (32.0-36.5); MEAN CORPUSCULAR VOLUME 100.6 fl (80.0-96.0); MONO # 0.7 K/mm3 (0.0-0.8); MONO % 7.7 % (0.0-5.0); NEUTROPHILS # 6.4 K/mm3 (1.8-7.7); NEUTROPHILS % 72.9 % (36.0-66.0); PLATELET COUNT, AUTOMATED 242 k/mm3 (150-450); RED CELL DISTRIBUTION WIDTH 12.3 % (11.5-14.5); WHITE BLOOD COUNT 8.8 K/mm3 (4.0-10.0)
[2016-12-20] MEDS: SLF 3 ML SYR IV SCH ×3 (05:40→21:12)
[2016-12-20] MEDS: LEVOTHYROXINE 0.125 MG TAB (125 MCG) PO SCH (05:40)
[2016-12-20 05:50] LABS: ALBUMIN 2.5 GM/DL (3.2-5.2); ALBUMIN/GLOBULIN RATIO 0.71 (1.00-1.93); ALKALINE PHOSPHATASE 50 U/L (45-117); ALT/SGPT 22 U/L (12-78); ANION GAP 5 MEQ/L (8-16); AST/SGOT 13 U/L (15-37); BILIRUBIN,TOTAL 0.4 MG/DL (0.2-1.0); BLOOD UREA NITROGEN 28 MG/DL (7-18); CALCIUM LEVEL 8.8 MG/DL (8.8-10.2); CARBON DIOXIDE LEVEL 31 MEQ/L (21-32); CHLORIDE LEVEL 103 MEQ/L (98-107); GLOMERULAR FILTRATION RATE > 60.0 (>42); GLUCOSE, FASTING 75 MG/DL (83-110); POTASSIUM SERUM 4.5 MEQ/L (3.5-5.1); SODIUM LEVEL 139 MEQ/L (136-145)
[2016-12-20] MEDS: MOM 30ML SUSPENSION UDC PO SCH (08:11)
[2016-12-20] MEDS: predniSONE 20 MG TAB PO SCH (08:11)
[2016-12-20] MEDS: DOCUSATE SODIUM 100 MG CAP PO SCH ×2 (08:11→21:00)
[2016-12-20] MEDS: SOTALOL HCL 80 MG TAB PO SCH ×2 (08:11→21:11)
[2016-12-20] MEDS: FUROSEMIDE 20 MG TAB PO SCH ×2 (08:12→17:13)
[2016-12-20] MEDS: ENOXAPARIN 30 MG/0.3 ML SYR (J1650) SC SCH (08:12)
[2016-12-20] MEDS: PANTOPRAZOLE 40MG TAB (PROTONIX) PO SCH (08:12)
--- NOTE | 2016-12-20 08:23 | IPNPDOC ---
Subjective General Date Seen The patient was seen on 12/20/16. Subjective Chief Complaint/HPI The patient is a 76-year-old male admitted with a reason for visit of COPD. Events since last encounter Pt denies any new issues. Nursing notes still some draining at the chest tube site. Pt states he is breathing better. Denies CP. Constitutional: Denies: Chills, Fever Pulmonary: Denies: Dyspnea Cardiovascular: Denies: Chest Pain, Palpitations Gastrointestinal: Denies: Abdominal Pain, Nausea, Vomiting Objective Physical Examination General Exam: Positive: Alert, No Acute Distress ENT Exam: Positive: Other ENT (oral thrush noted.) Neck Exam: Positive: Other (mass to right supraclvicular area. hard, non-tender ), Supple, Negative: JVD Chest Exam: Positive: Clear to auscultation, Other (dressing to chest tube site ) Heart Exam: Positive: Rate Normal, Regular Rhythm Telemetry: Positive: No significant arrhythmia Abdomen Exam: Positive: Normal bowel sounds, Soft, Negative: Tenderness Extremity Exam: Negative: Edema Skin Exam: Positive: Nl turgor and temperature Psych Exam: Positive: Mental status NL Assessment /Plan Problems Problems: (1) Pulmonary infiltrate Status: Acute Problem Specific Plan: Consult Specialist, Monitor Clinically, Repeat Labs Problem Text: 12/20 - Pt has empyema. Dr Mills following. Pt's chest tube was removed 12/17. He has had some drainage at the site. Sputum cx positive for Pseudomonas and Enterobacter cloacae. On Zosyn and Gent. WBC down to 8.8 today. On PO Prednisone. Plan is to treat the infection and then set up with Dr Feldman to begin chemo once infection has been treated. 12/19/2016: CT dressing with minimal drainage. Will continue UV abx for 5-7 days. WBC 9,000 today. 12/18 - Pt has empyema. Dr Mills following and removed chest tube yesterday. Sputum cx positive for Pseudomonas and Enterobacter cloacae. On Zosyn and Gent (Zithro and Ceftriaxone were d/c'ed yesterday). WBC down slightly to 12.3 today. IV solumedrol was d/c'ed and now on PO Prednisone. Plan is to treat the infection and then set up with Dr Feldman to begin chemo once infection has been treated. 12/17 - Pt is being followed by Dr Mills, who placed a chest tube yesterday and removed the chest tube today. Concern for malignant pleural effusion, however it appears that it is an empyema. Additionally, WBC up, and sputum cx positive for Pseudomonas and Enterobacter cloacae. Plan was going to be d/c home with follow up with Dr Feldman tomorrow to start chemo, however, now given the empyema and the positive sputum cx, will need to keep the pt longer for continued abx treatment for pneumonia caused by those organisms. Will d/c the Zithro and Ceftriaxone, and change to Zosyn and Gent. Will consult pharmacy to assist with gent dosing. Getting IV Solumedrol. Getting supp O2. Agree with need for antibiotic therapy for pseudomonas and enterobacter. he wouldn't be able to proceed with chemo with this infection. The pleural fluid showed some wbc but impressively low pH, elevated LDH, c/w empyema. Drainage has stopped so Dr. Mills removed Chest tube today. (2) Empyema Status: Acute Problem Specific Plan: Consult Specialist, Monitor Clinically, Repeat Labs Problem Text: See above. (3) Pneumonia Status: Acute Problem Specific Plan: Consult Specialist, Monitor Clinically, Repeat Labs Problem Text: See above. (4) Thyroid cancer Status: Chronic Problem Specific Plan: Monitor Clinically Problem Text: Pt will need to follow up with Dr Feldman at d/c to likely begin chemo. Case has been discussed with Dr Feldman. Pt getting radiation therapy with Dr Mcqueen. 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 Case has been discussed with Dr Feldman. Pt getting radiation therapy with Dr Mcqueen. The above plan on hold until infection is suppressed. (6) Hypothyroidism Status: Chronic Problem Specific Plan: Monitor Clinically Problem Text: On Synthroid. (7) HTN (hypertension) Status: Chronic Problem Specific Plan: Monitor Clinically Problem Text: On Lisinopril and sotolol. Plan/VTE VTE Prophylaxis Ordered?: Yes VS, I&O, 24H, Fishbone Vital Signs/I&O Vital Signs Date Time Temp Pulse Resp B/P Pulse Ox O2 Delivery O2 Flow Rate FiO2 12/20/16 07:05 Nasal Cannula 2.0 12/20/16 04:00 95.7 54 18 128/79 94 I&O- Last 24 Hours up to 6 AM 12/20/16 06:00 Intake Total 2103 ml Output Total 3200 ml Balance -1097 ml Laboratory Data 24H LABS Laboratory Tests 2 12/20/16 05:10: Blood Urea Nitrogen 28H, Creatinine 1.00, Sodium Level 139, Potassium Level 4.5 , Chloride Level 103, Carbon Dioxide Level 31, Calcium Level 8.8, Aspartate Amino Transf (AST/SGOT) 13L, Alanine Aminotransferase (ALT/SGPT) 22, Alkaline Phosphatase 50, Total Bilirubin 0.4, Total Protein 6.0L, Albumin 2.5L, Albumin/ Globulin Ratio 0.71L, Anion Gap 5L, White Blood Count 8.8, Red Blood Count 4.58 , Hemoglobin 15.0, Hematocrit 46.1, Mean Corpuscular Volume 100.6H, Mean Corpuscular Hemoglobin 32.7, Mean Corpuscular Hemoglobin Concent 32.5, Red Cell Distribution Width 12.3, Platelet Count 242, Neutrophils (%) (Auto) 72.9H, Lymphocytes (%) (Auto) 16.8L, Monocytes (%) (Auto) 7.7H, Eosinophils (%) (Auto) 0.6, Basophils (%) (Auto) 0.1, Neutrophils # (Auto) 6.4, Lymphocytes # (Auto) 1.5, Monocytes # (Auto) 0.7, Eosinophils # (Auto) 0.0, Basophils # (Auto) 0.0, Glomerular Filtration Rate > 60.0, Large Unclassified Cells # 0.2, Large Unclassified Cells % 2.0 CBC/BMP Laboratory Tests 12/20/16 05:10 Calcium Level 8.8, Aspartate Amino Transf (AST/SGOT) 13 L, Alanine Aminotransferase (ALT/SGPT) 22, Alkaline Phosphatase 50, Total Bilirubin 0.4, Total Protein 6.0 L, Albumin 2.5 L, Red Blood Count 4.58, Mean Corpuscular Volume 100.6 H, Mean Corpuscular Hemoglobin 32.7, Mean Corpuscular Hemoglobin Concent 32.5, Red Cell Distribution Width 12.3, Neutrophils (%) (Auto) 72.9 H, Lymphocytes (%) (Auto) 16.8 L, Monocytes (%) (Auto) 7.7 H, Eosinophils (%) (Auto ) 0.6, Basophils (%) (Auto) 0.1, Neutrophils # (Auto) 6.4, Lymphocytes # (Auto) 1.5, Monocytes # (Auto) 0.7, Eosinophils # (Auto) 0.0, Basophils # (Auto) 0.0 Microbiology Microbiology 12/15/16 Blood Culture - Preliminary, Resulted No Growth after 72 hours. All specime... 12/15/16 Blood Culture - Preliminary, Resulted No Growth after 72 hours. All specime... 12/16/16 Acid Fast Stain - Final, Resulted 12/16/16 Mycobacterial Culture, Resulted Pending 12/16/16 Fungal Smear, Resulted Pending 12/16/16 Fungal Culture, Resulted Pending 12/16/16 Gram Stain - Final, Complete 12/16/16 Anaerobic Culture - Final, Complete 12/16/16 Body Fluid Culture - Final, Complete 12/15/16 Gram Stain - Final, Complete 12/15/16 Sputum Culture - Final, Complete Pseudomonas Aeruginosa Enterobacter Cloacae Complex Attending Note Attending Note Thrush noted by Dr. Mills, will add Nystatin. PA note reviewed and agree. Rupert Denton Dec 20, 2016 08:23 Bk Limon MD Dec 20, 2016 12:05
--- NOTE | 2016-12-20 09:42 | REP ---
CHEST PA AND LATERAL: 12/20/2016. Clinical history: Pleural effusion. Comparison: Chest x-rays 12/19/2016, 12/18/2016, 12/17/2016. Findings: A multilead pacer with AICD lead and epicardial lead again seen. Heart has left ventricular configuration. Diffuse interstitial fibrotic changes throughout the right lung with some ill-defined nodular opacities. Advanced COPD with bullous emphysematous changes, greater on the left and right upper lung zone. No infiltrate or effusion on the left. Small apical pleural air collection on the right. Surgical clips at the neck base on the right. I do not see significant interval change. Signed by Tom Head MD 12/20/2016 07:27 P
[2016-12-20] MEDS: LISINOPRIL *2.5 MG* TAB PO SCH (12:00)
[2016-12-20] MEDS: NYSTATIN 500,000 U/5 ML SUSP UDC PO SCH ×3 (13:57→21:11)
[2016-12-20] MEDS: ATORVASTATIN 10 MG TAB PO SCH (21:11)
[2016-12-21] MEDS: IPRATROPIUM 0.5MG/ALBUTEROL 2.5MG INH SOL UD 3ML (DUONEB)(J7620) NEB SCH ×4 (01:17→20:32)
[2016-12-21] MEDS: GENTAMICIN 120 MG in D5W 50 ML IV SCH ×2 (01:51→14:09)
[2016-12-21 04:00] VITALS: BP 113/87
[2016-12-21 05:34] LABS: MEAN CORPUSCULAR HEMOGLOBIN 32.8 pg (27.0-33.0); MEAN CORPUSCULAR HGB CONC 33.2 g/dl (32.0-36.5); MEAN CORPUSCULAR VOLUME 98.8 fl (80.0-96.0); PLATELET COUNT, AUTOMATED 247 k/mm3 (150-450); WHITE BLOOD COUNT 10.1 K/mm3 (4.0-10.0)
[2016-12-21 05:38] LABS: ALBUMIN 2.4 GM/DL (3.2-5.2); ALBUMIN/GLOBULIN RATIO 0.69 (1.00-1.93); ALKALINE PHOSPHATASE 44 U/L (45-117); ALT/SGPT 21 U/L (12-78); ANION GAP 10 MEQ/L (8-16); AST/SGOT 12 U/L (15-37); BILIRUBIN,TOTAL 0.4 MG/DL (0.2-1.0); BLOOD UREA NITROGEN 28 MG/DL (7-18); CALCIUM LEVEL 8.6 MG/DL (8.8-10.2); CARBON DIOXIDE LEVEL 30 MEQ/L (21-32); CHLORIDE LEVEL 101 MEQ/L (98-107); CREATININE FOR GFR 0.99 MG/DL (0.70-1.30); GLOMERULAR FILTRATION RATE > 60.0 (>42); GLUCOSE, FASTING 75 MG/DL (83-110); POTASSIUM SERUM 4.5 MEQ/L (3.5-5.1); SODIUM LEVEL 141 MEQ/L (136-145); TOTAL PROTEIN 5.9 GM/DL (6.4-8.2)
[2016-12-21 05:42] LABS: BASO % 0.2 % (0.0-1.0); EOS # 0.2 K/mm3 (0.0-0.50); EOS % 1.7 % (0.0-3.0); LARGE UNSTAINED CELL # 0.2 K/mm3 (0.0-0.4); LARGE UNSTAINED CELL % 2.1 % (0.0-4.0); LYMPH # 1.5 K/mm3 (1.5-4.5); LYMPH % 14.9 % (24.0-44.0); MONO # 0.8 K/mm3 (0.0-0.8); MONO % 8.2 % (0.0-5.0); NEUTROPHILS # 7.4 K/mm3 (1.8-7.7)
[2016-12-21] MEDS: LEVOTHYROXINE 0.125 MG TAB (125 MCG) PO SCH (05:43)
[2016-12-21] MEDS: SLF 3 ML SYR IV SCH ×3 (05:44→21:10)
[2016-12-21] MEDS: PIPERACILLIN/TAZOBACTAM SOD 3.375 GM in D5W MINI-BAG PLUS 50 ML IV SCH ×3 (05:44→17:53)
[2016-12-21 07:35] VITALS: BP 124/63
--- NOTE | 2016-12-21 08:06 | IPNPDOC ---
Subjective General Date Seen The patient was seen on 12/21/16. Subjective Chief Complaint/HPI The patient is a 76-year-old male admitted with a reason for visit of COPD. Events since last encounter Pt denies any new issues. States breathing is better. Denies CP, Abd pain. Constitutional: Denies: Chills, Fever Pulmonary: Denies: Dyspnea Cardiovascular: Denies: Chest Pain Gastrointestinal: Denies: Abdominal Pain, Nausea, Vomiting Objective Physical Examination General Exam: Positive: Alert, No Acute Distress ENT Exam: Positive: Other ENT (oral thrush noted.) Neck Exam: Positive: Other (mass to right supraclvicular area. hard, non-tender ), Supple, Negative: JVD Chest Exam: Positive: Clear to auscultation, Other (dressing to chest tube site ) Heart Exam: Positive: Rate Normal, Regular Rhythm Telemetry: Positive: No significant arrhythmia Abdomen Exam: Positive: Normal bowel sounds, Soft, Negative: Tenderness Extremity Exam: Negative: Edema Skin Exam: Positive: Nl turgor and temperature Psych Exam: Positive: Mental status NL Assessment /Plan Problems Problems: (1) Pulmonary infiltrate Status: Acute Problem Specific Plan: Consult Specialist, Monitor Clinically, Repeat Labs Problem Text: 12/21 - Pt has empyema. Xray improved compared to before Tube placement. Dr Mills following. Pt's chest tube was removed 12/17. He has had some drainage at the site. Sputum cx positive for Pseudomonas and Enterobacter cloacae. On Zosyn and Gent. WBC up to 10.1 today (was 8.8 yesterday). On PO Prednisone 40mg daily. Will Decrease the Prednisone to 20 mg daily today. Plan is to treat the infection and then set up with Dr Feldman to begin chemo once infection has been treated. 12/20 - Pt has empyema. Dr Mills following. Pt's chest tube was removed 12/17. He has had some drainage at the site. Sputum cx positive for Pseudomonas and Enterobacter cloacae. On Zosyn and Gent. WBC down to 8.8 today. On PO Prednisone. Plan is to treat the infection and then set up with Dr Feldman to begin chemo once infection has been treated. 12/19/2016: CT dressing with minimal drainage. Will continue UV abx for 5-7 days. WBC 9,000 today. 12/18 - Pt has empyema. Dr Mills following and removed chest tube yesterday. Sputum cx positive for Pseudomonas and Enterobacter cloacae. On Zosyn and Gent (Zithro and Ceftriaxone were d/c'ed yesterday). WBC down slightly to 12.3 today. IV solumedrol was d/c'ed and now on PO Prednisone. Plan is to treat the infection and then set up with Dr Feldman to begin chemo once infection has been treated. 12/17 - Pt is being followed by Dr Mills, who placed a chest tube yesterday and removed the chest tube today. Concern for malignant pleural effusion, however it appears that it is an empyema. Additionally, WBC up, and sputum cx positive for Pseudomonas and Enterobacter cloacae. Plan was going to be d/c home with follow up with Dr Feldman tomorrow to start chemo, however, now given the empyema and the positive sputum cx, will need to keep the pt longer for continued abx treatment for pneumonia caused by those organisms. Will d/c the Zithro and Ceftriaxone, and change to Zosyn and Gent. Will consult pharmacy to assist with gent dosing. Getting IV Solumedrol. Getting supp O2. Agree with need for antibiotic therapy for pseudomonas and enterobacter. he wouldn't be able to proceed with chemo with this infection. The pleural fluid showed some wbc but impressively low pH, elevated LDH, c/w empyema. Drainage has stopped so Dr. Mills removed Chest tube today. (2) Empyema Status: Acute Problem Specific Plan: Consult Specialist, Monitor Clinically, Repeat Labs Problem Text: See above. (3) Pneumonia Status: Acute Problem Specific Plan: Consult Specialist, Monitor Clinically, Repeat Labs Problem Text: See above. (4) Thyroid cancer Status: Chronic Problem Specific Plan: Monitor Clinically Problem Text: Pt will need to follow up with Dr Feldman at d/c to likely begin chemo. Case has been discussed with Dr Feldman. Pt getting radiation therapy with Dr Mcqueen. 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 Case has been discussed with Dr Feldman. Pt getting radiation therapy with Dr Mcqueen. The above plan on hold until infection is suppressed. (6) Hypothyroidism Status: Chronic Problem Specific Plan: Monitor Clinically Problem Text: On Synthroid. (7) HTN (hypertension) Status: Chronic Problem Specific Plan: Monitor Clinically Problem Text: On Lisinopril and sotolol. Plan/VTE VTE Prophylaxis Ordered?: Yes VS, I&O, 24H, Fishbone Vital Signs/I&O Vital Signs Date Time Temp Pulse Resp B/P Pulse Ox O2 Delivery O2 Flow Rate FiO2 12/21/16 07:53 Nasal Cannula 2.0 12/21/16 04:00 95.7 53 20 113/87 98 I&O- Last 24 Hours up to 6 AM 12/21/16 06:00 Intake Total 2956 ml Output Total 2550 ml Balance 406 ml Laboratory Data 24H LABS Laboratory Tests 2 12/21/16 05:00: Blood Urea Nitrogen 28H, Creatinine 0.99, Sodium Level 141, Potassium Level 4.5 , Chloride Level 101, Carbon Dioxide Level 30, Calcium Level 8.6L, Aspartate Amino Transf (AST/SGOT) 12L, Alanine Aminotransferase (ALT/SGPT) 21, Alkaline Phosphatase 44L, Total Bilirubin 0.4, Total Protein 5.9L, Albumin 2.4L, Albumin/ Globulin Ratio 0.69L, Anion Gap 10, White Blood Count 10.1H, Red Blood Count 4.68, Hemoglobin 15.3, Hematocrit 46.2, Mean Corpuscular Volume 98.8H, Mean Corpuscular Hemoglobin 32.8, Mean Corpuscular Hemoglobin Concent 33.2, Red Cell Distribution Width 12.0, Platelet Count 247, Neutrophils (%) (Auto) 73.0H, Lymphocytes (%) (Auto) 14.9L, Monocytes (%) (Auto) 8.2H, Eosinophils (%) (Auto) 1.7, Basophils (%) (Auto) 0.2, Neutrophils # (Auto) 7.4, Lymphocytes # (Auto) 1.5, Monocytes # (Auto) 0.8, Eosinophils # (Auto) 0.2, Basophils # (Auto) 0.0, Glomerular Filtration Rate > 60.0, Large Unclassified Cells # 0.2, Large Unclassified Cells % 2.1, Platelet Estimate CBC/BMP Laboratory Tests 12/21/16 05:00 Calcium Level 8.6 L, Aspartate Amino Transf (AST/SGOT) 12 L, Alanine Aminotransferase (ALT/SGPT) 21, Alkaline Phosphatase 44 L, Total Bilirubin 0.4, Total Protein 5.9 L, Albumin 2.4 L, Red Blood Count 4.68, Mean Corpuscular Volume 98.8 H, Mean Corpuscular Hemoglobin 32.8, Mean Corpuscular Hemoglobin Concent 33.2, Red Cell Distribution Width 12.0, Neutrophils (%) (Auto) 73.0 H, Lymphocytes (%) (Auto) 14.9 L, Monocytes (%) (Auto) 8.2 H, Eosinophils (%) (Auto ) 1.7, Basophils (%) (Auto) 0.2, Neutrophils # (Auto) 7.4, Lymphocytes # (Auto) 1.5, Monocytes # (Auto) 0.8, Eosinophils # (Auto) 0.2, Basophils # (Auto) 0.0 Microbiology Microbiology 12/15/16 Blood Culture - Final, Complete NO GROWTH AFTER 5 DAYS 12/15/16 Blood Culture - Final, Complete NO GROWTH AFTER 5 DAYS 12/16/16 Acid Fast Stain - Final, Resulted 12/16/16 Mycobacterial Culture, Resulted Pending 12/16/16 Fungal Smear, Resulted Pending 12/16/16 Fungal Culture, Resulted Pending 12/16/16 Gram Stain - Final, Complete 12/16/16 Anaerobic Culture - Final, Complete 12/16/16 Body Fluid Culture - Final, Complete 12/15/16 Gram Stain - Final, Complete 12/15/16 Sputum Culture - Final, Complete Pseudomonas Aeruginosa Enterobacter Cloacae Complex Attending Note Attending Note Agree with findings and plan as noted by Rupert Talamantes Dec 21, 2016 08:06 Bk Limon MD Dec 21, 2016 13:41
--- NOTE | 2016-12-21 08:44 | IPN ---
DATE: 12/20/2016 Mr. Oseguera is feeling well today. He is undergoing radiation therapy. He has not been febrile. He is taking good oral intake. His vital signs show a maximum temperature (T max) of 95.7 with a heart rate that ranges between 54 and 77 and is sinus rhythm, respiratory rate of 18 to 20 without the use of accessory muscles who is 91 to 94% saturated on 2 liters nasal cannula and whose blood pressure is ranging between 128/79 to 117/66. His intake and output for the past 24 hours has been recorded as 1680 in and 3225 out for a negativity of 1500 mL. He has taken in 1680 mL in oral intake and has put out 3225 mL in urine output. I think that his weight is incorrectly entered as it is entered as 91.7 kg compared to his weight yesterday of 72.3 kg. PHYSICAL EXAMINATION: He has inspiratory crackles and coarse rhonchi, some of which clear with coughing in the right lower hemithorax. Left hemithorax shows normal vesicular sounds. Percussion notes are full to the diaphragms. Cardiac exam is without murmurs, clicks, gallops or rubs. I cannot feel his point of maximum impulse (PMI). S1, S2 are normal. Abdomen is soft and nontender. Bowel sounds are positive. There is no hepatomegaly. No costovertebral angle tenderness. Extremities show no pretibial edema. No calf tenderness. No differential swelling of the upper extremities. Skin is warm, dry and perfused without cyanosis or mottling, including that of the nail beds and the knees. Neck is supple. There is no jugular venous distention, no subcutaneous emphysema. Trachea is midline. Mouth shows his mucous membranes to be pink and moist. Lips and commissures without lesions. There is some thrush in his posterior pharynx. Eyes show his pupils to be equal and reactive. Extraocular motions intact. Sclerae anicteric. Neurologic shows II-XII intact along with gross motor and gross sensation intact. Gait is not tested. Psychiatric shows him to be awake and alert, oriented times three with appropriate mood and affect and conversational. His white count is down to 8.8 with a hemoglobin and hematocrit of 15.0 and 46.1, respectively. Platelet count is 242 and differential shows 79% neutrophils, 16% lymphocytes, 7% monocytes. There are no immature forms. No toxic granulations. His electrolytes are normal with a BUN and creatinine of 28 and 1.0, a glucose of 75 and a calcium of 8.8 with a corresponding albumin of 2.5. There is no new microbiology other than the expectorated sputum of 12/15/2016, which showed Pseudomonas aeruginosa and Enterobacter cloacae. He is on Lasix 10 mg by mouth twice a day. I am surprised that accounts for his significant intake and output balance His chest x-ray today shows no reaccumulation of his pleural fluid. In fact, the right lower hemithorax looks less infiltrative today than it did yesterday. There has been very little out on the dressing in the last 24 hours, maybe a teaspoon of fluid and pus. IMPRESSION: 1. Right empyema, resolving. 2. Right lower lobe pneumonia. Pseudomonas and Enterobacter cloacae positive. 3. Widely metastatic anaplastic thyroid carcinoma. 4. Hypertension. 5. Chronic obstructive pulmonary disease (COPD). 6. Hyperlipidemia. 7. Hypothyroidism. PLAN AND DISCUSSION: We will continue to follow his chest x-rays. I am very gratified that the drainage has almost stopped now from his chest tube site. If he continues this course, I will probably sign off this case tomorrow then. He is continuing on antibiotics consisting of gentamicin and Zosyn. I have informed Dr. Limon of his thrush, and he is going to prescribe Nystatin swish and swallow.
[2016-12-21] MEDS: DOCUSATE SODIUM 100 MG CAP PO SCH ×2 (09:00→21:00)
[2016-12-21] MEDS: MOM 30ML SUSPENSION UDC PO SCH (09:00)
[2016-12-21] MEDS: predniSONE 20 MG TAB PO SCH (09:13)
[2016-12-21] MEDS: ENOXAPARIN 30 MG/0.3 ML SYR (J1650) SC SCH (09:13)
[2016-12-21] MEDS: PANTOPRAZOLE 40MG TAB (PROTONIX) PO SCH (09:13)
[2016-12-21] MEDS: NYSTATIN 500,000 U/5 ML SUSP UDC PO SCH ×4 (09:13→21:10)
[2016-12-21] MEDS: FUROSEMIDE 20 MG TAB PO SCH ×2 (09:14→17:53)
[2016-12-21] MEDS: SOTALOL HCL 80 MG TAB PO SCH ×2 (09:17→21:10)
[2016-12-21 12:00] VITALS: BP 108/55
[2016-12-21] MEDS: LISINOPRIL *2.5 MG* TAB PO SCH (12:00)
--- NOTE | 2016-12-21 13:38 | REP ---
CHEST PA AND LATERAL: 12/21/2016. Clinical history: Pleural effusion. Comparison: 12/20/2016, 12/19/2016, 12/18/2016. Findings: Multilead AICD pacer with epicardial lead as well noted and unchanged. There is a trace apical pleural air collection on the right. There is a tiny residual prior pneumothorax. Blunting of the CP angle at the right base as before. Underlying fibrosis, COPD and some chronic densities in the right lung. The left lung is hyperinflated with bullous emphysematous changes and no acute finding or interval change. Cardiomediastinal silhouette, aorta and airway with pulmonary artery hypertension. All of these findings stable. Impression: 1. Chronic diffuse interstitial fibrotic changes, heavier right than left with some patchy densities and pleural effusion on the right with blunting of the CP angle, all of this stable compared to yesterday. Trace right apical pneumothorax. 2. Multilead AICD pacer unchanged. Underlying emphysematous changes, COPD and pulmonary artery hypertension, stable. Signed by Tom Head MD 12/21/2016 07:21 P
[2016-12-21 15:55] VITALS: BP 127/73
[2016-12-21 20:00] VITALS: BP 115/74
[2016-12-21] MEDS: ATORVASTATIN 10 MG TAB PO SCH (21:09)
[2016-12-22] MEDS: PIPERACILLIN/TAZOBACTAM SOD 3.375 GM in D5W MINI-BAG PLUS 50 ML IV SCH ×5 (00:40→23:51)
[2016-12-22] MEDS: IPRATROPIUM 0.5MG/ALBUTEROL 2.5MG INH SOL UD 3ML (DUONEB)(J7620) NEB SCH ×4 (01:15→20:06)
[2016-12-22] MEDS: LEVOTHYROXINE 0.125 MG TAB (125 MCG) PO SCH (05:29)
[2016-12-22] MEDS: SLF 3 ML SYR IV SCH ×3 (05:29→20:34)
[2016-12-22 06:00] VITALS: BP 132/71
[2016-12-22 06:21] LABS: ALBUMIN 2.6 GM/DL (3.2-5.2); ALBUMIN/GLOBULIN RATIO 0.7 (1.00-1.93); BILIRUBIN,TOTAL 0.3 MG/DL (0.2-1.0); CALCIUM LEVEL 8.8 MG/DL (8.8-10.2); CREATININE FOR GFR 1.32 MG/DL (0.70-1.30); POTASSIUM SERUM 4.6 MEQ/L (3.5-5.1); TOTAL PROTEIN 6.3 GM/DL (6.4-8.2)
[2016-12-22 06:27] LABS: BASO % 0.2 % (0.0-1.0); EOS # 0.2 K/mm3 (0.0-0.50); EOS % 2.4 % (0.0-3.0); LARGE UNSTAINED CELL # 0.2 K/mm3 (0.0-0.4); LARGE UNSTAINED CELL % 1.9 % (0.0-4.0); LYMPH # 1.3 K/mm3 (1.5-4.5); MEAN CORPUSCULAR HEMOGLOBIN 33.3 pg (27.0-33.0); MEAN CORPUSCULAR HGB CONC 33.4 g/dl (32.0-36.5); MEAN CORPUSCULAR VOLUME 99.7 fl (80.0-96.0); MONO # 0.7 K/mm3 (0.0-0.8); MONO % 7.1 % (0.0-5.0); NEUTROPHILS # 7.4 K/mm3 (1.8-7.7); NEUTROPHILS % 75.4 % (36.0-66.0); PLATELET COUNT, AUTOMATED 299 k/mm3 (150-450); WHITE BLOOD COUNT 9.8 K/mm3 (4.0-10.0)
--- NOTE | 2016-12-22 06:53 | IPN ---
DATE: 12/21/2016 Mr. Oseguera is again doing well today. He is eating well and feeling well. His breathing is also doing well. His chest x-ray does not show any return of the empyema. His vital signs show a T-max of 95.7 with a heart rate that ranges between 53 and 67 in a sinus rhythm, a respiratory rate that is constant at 20, who is 98% saturated on 2 liters nasal cannula and whose blood pressure is ranging between 124/68 to 113/87. His intake and output the past 24 hours has been recorded as 3156 and 3100 for near equality. He is still putting out a little bit on the dressing. Weight today is 71.4 kg compared to 72.3 kg on 12/19/2016. On physical examination, his lungs show some faint crackles during inspiration in the right lower hemithorax. Percussion notes are full to the diaphragm. The remainder of his lungs show normal vesicular sounds. Cardiac Exam: Without murmurs, clicks, gallops, or rubs. I cannot feel his PMI. S1, S2 are normal. Abdomen: Soft. Nontender. Bowel sounds are positive. There is no hepatomegaly. There is no costovertebral angle (CVA) tenderness. Extremities: Show no pretibial edema. No calf tenderness. No differential swelling of the upper extremities. Skin: Warm, dry and perfused. Without cyanosis or mottling, including that of the nail beds and knees. Neck: Supple. There is no jugular venous distention. No subcutaneous emphysema. Trachea is midline. The supraclavicular mass is still present. Mouth: Shows his mucous membranes to be pink and moist. Lips and commissures are without lesions. The thrush has resolved. Eyes: Show his pupils to be equal and reactive. Extraocular movements intact. Sclerae nonicteric. Neurologic: Shows II-XII intact along with gross motor and gross sensation intact. Gait is not tested. Psychiatric shows him to be awake, alert, and oriented times three with appropriate mood and affect and conversational. His white count today is 10.1 up from 8.8 yesterday. Hemoglobin and hematocrit are 15.3 and 46.2 respectively. Platelet count is 247 and stable. Differential shows 78% neutrophils, 14% lymphocytes, 8% monocytes. There are no immature forms and no toxic granulations. Electrolytes are normal with a BUN and creatinine of 28 and 0.99. Calcium is 8.8 with a glucose of 75. Albumin is 2.4. His chest x-ray today shows no reaccumulation of the right empyema. He still has an infiltrative pattern in the right lower lobe, but it looks to be unchanged from yesterday. The right costophrenic angle is blunted. He does have very flat diaphragms throughout however. There is no posterior infiltration on the lateral film. IMPRESSION: 1. Right empyema, resolving. 2. Right lower lobe pneumonia, Pseudomonas and Enterobacteria cloacae positive. 3. Widely metastatic anaplastic thyroid carcinoma. 4. Hypertension. 5. Chronic obstructive pulmonary disease (COPD). 6. Hyperlipidemia. 7. Hypothyroidism. 8. Thrush, resolving. PLAN AND DISCUSSION: This is now the fourth day of antibiotics covering Pseudomonas. He will need to be probably hospitalized for another two or three days for the IV antibiotics. I am gratified that his x-ray does not show any reaccumulation of the empyema. He is certainly clinically improving. We will continue to monitor his chest x-ray and his dressing.
--- NOTE | 2016-12-22 07:54 | IPNPDOC ---
Subjective General Date Seen The patient was seen on 12/22/16. Subjective Chief Complaint/HPI The patient is a 76-year-old male admitted with a reason for visit of COPD. Events since last encounter Denies c/o today. States breathing is slowly improving. OOB ambulating, taking showers. Tolerating diet well. IS not oxygen dependent at home. Continues to try to wean off. Constitutional: Reports: Weakness, Denies: Chills, Fever, Night Sweats ENT: Denies: Dysphagia, Ear Pain, Head Aches Skin: Denies: Breakdown, Lesions, Rash Pulmonary: Reports: Cough, Dyspnea Cardiovascular: Denies: Chest Pain, Lt Headedness, Orthopnea, Palpitations, Paroxysmal Noc. Dyspnea Gastrointestinal: Denies: Abdominal Pain, Constipation, Diarrhea, Nausea, Vomiting Genitourinary: Denies: Dysuria, Frequency, Incontinence, Retention Psych: Reports: Mood Normal Objective Physical Examination General Exam: Positive: Alert, No Acute Distress ENT Exam: Positive: Other ENT (oral thrush noted.) Neck Exam: Positive: Other (mass to right supraclvicular area. hard, non-tender ), Supple, Negative: JVD Chest Exam: Positive: Clear to auscultation, Other (dressing to chest tube site : C/D/I) Heart Exam: Positive: Rate Normal, Regular Rhythm Abdomen Exam: Positive: Normal bowel sounds, Soft, Negative: Tenderness Extremity Exam: Negative: Edema Skin Exam: Positive: Nl turgor and temperature Psych Exam: Positive: Mental status NL Assessment /Plan Problems Problems: (1) SIA (acute kidney injury) Status: Acute Problem Text: 12/22 cr to 1.3 from baseline 0.9-therefore, gent/ACEI/furosemide held (2) Empyema Status: Acute Problem Specific Plan: Consult Specialist, Monitor Clinically, Repeat Labs Problem Text: 12/15/16 SCX moderate P.aeruginosa res to levo 12/22/16: plan is for Antibiotic tx until 12/24 at a minimum. Potential for DC . Will have direct referral to Dr. Feldman for initiation of Chemotx. WBC stable at 9 today. Cr is elevated at 1.3. Will monitor pharmacy monitoring with gent levels. 12/21 - Pt has empyema. Xray improved compared to before Tube placement. Dr Mills following. Pt's chest tube was removed 12/17. He has had some drainage at the site. Sputum cx positive for Pseudomonas and Enterobacter cloacae. On Zosyn and Gent. WBC up to 10.1 today (was 8.8 yesterday). On PO Prednisone 40mg daily. Will Decrease the Prednisone to 20 mg daily today. Plan is to treat the infection and then set up with Dr Feldman to begin chemo once infection has been treated. 12/20 - Pt has empyema. Dr Mills following. Pt's chest tube was removed 12/17. He has had some drainage at the site. Sputum cx positive for Pseudomonas and Enterobacter cloacae. On Zosyn and Gent. WBC down to 8.8 today. On PO Prednisone. Plan is to treat the infection and then set up with Dr Feldman to begin chemo once infection has been treated. 12/19/2016: CT dressing with minimal drainage. Will continue UV abx for 5-7 days. WBC 9,000 today. 12/18 - Pt has empyema. Dr Mills following and removed chest tube yesterday. Sputum cx positive for Pseudomonas and Enterobacter cloacae. On Zosyn and Gent (Zithro and Ceftriaxone were d/c'ed yesterday). WBC down slightly to 12.3 today. IV solumedrol was d/c'ed and now on PO Prednisone. Plan is to treat the infection and then set up with Dr Feldman to begin chemo once infection has been treated. 12/17 - Pt is being followed by Dr Mills, who placed a chest tube yesterday and removed the chest tube today. Concern for malignant pleural effusion, however it appears that it is an empyema. Additionally, WBC up, and sputum cx positive for Pseudomonas and Enterobacter cloacae. Plan was going to be d/c home with follow up with Dr Feldman tomorrow to start chemo, however, now given the empyema and the positive sputum cx, will need to keep the pt longer for continued abx treatment for pneumonia caused by those organisms. Will d/c the Zithro and Ceftriaxone, and change to Zosyn and Gent. Will consult pharmacy to assist with gent dosing. Getting IV Solumedrol. Getting supp O2. Agree with need for antibiotic therapy for pseudomonas and enterobacter. he wouldn't be able to proceed with chemo with this infection. The pleural fluid showed some wbc but impressively low pH, elevated LDH, c/w empyema. Drainage has stopped so Dr. Mills removed Chest tube today. (3) Thyroid cancer Status: Chronic Problem Specific Plan: Monitor Clinically Problem Text: Pt will need to follow up with Dr Feldman at d/c to likely begin chemo. Case has been discussed with Dr Feldman. Pt getting radiation therapy with Dr Mcqueen. 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 Case has been discussed with Dr Feldman. Pt getting radiation therapy with Dr Mcqueen. The above plan on hold until infection is suppressed. (5) Hypothyroidism Status: Chronic Problem Specific Plan: Monitor Clinically Problem Text: On Synthroid. (6) HTN (hypertension) Status: Chronic Problem Specific Plan: Monitor Clinically Problem Text: On Lisinopril and sotolol. Plan/VTE VTE Prophylaxis Ordered?: Yes VS, I&O, 24H, Fishbone Vital Signs/I&O Vital Signs Date Time Temp Pulse Resp B/P Pulse Ox O2 Delivery O2 Flow Rate FiO2 12/22/16 06:00 96.7 59 18 132/71 94 Nasal Cannula 2.0 I&O- Last 24 Hours up to 6 AM 12/22/16 06:00 Intake Total 2560 ml Output Total 2800 ml Balance -240 ml Laboratory Data 24H LABS Laboratory Tests 2 12/21/16 12:46: Gentamicin Level Trough 1.9 12/22/16 05:39: Blood Urea Nitrogen 29H, Creatinine 1.32H, Sodium Level 140, Potassium Level 4.6 , Chloride Level 98, Carbon Dioxide Level 36H, Calcium Level 8.8, Aspartate Amino Transf (AST/SGOT) 13L, Alanine Aminotransferase (ALT/SGPT) 26, Alkaline Phosphatase 48, Total Bilirubin 0.3, Total Protein 6.3L, Albumin 2.6L, Albumin/ Globulin Ratio 0.70L, Anion Gap 6L, White Blood Count 9.8, Red Blood Count 4.67 , Hemoglobin 15.5, Hematocrit 46.5, Mean Corpuscular Volume 99.7H, Mean Corpuscular Hemoglobin 33.3H, Mean Corpuscular Hemoglobin Concent 33.4, Red Cell Distribution Width 12.0, Platelet Count 299, Neutrophils (%) (Auto) 75.4H, Lymphocytes (%) (Auto) 13.0L, Monocytes (%) (Auto) 7.1H, Eosinophils (%) (Auto) 2.4, Basophils (%) (Auto) 0.2, Neutrophils # (Auto) 7.4, Lymphocytes # (Auto) 1.3L, Monocytes # (Auto) 0.7, Eosinophils # (Auto) 0.2, Basophils # (Auto) 0.0, Glomerular Filtration Rate 56.0, Large Unclassified Cells # 0.2, Large Unclassified Cells % 1.9 CBC/BMP Laboratory Tests 12/22/16 05:39 Calcium Level 8.8, Aspartate Amino Transf (AST/SGOT) 13 L, Alanine Aminotransferase (ALT/SGPT) 26, Alkaline Phosphatase 48, Total Bilirubin 0.3, Total Protein 6.3 L, Albumin 2.6 L, Red Blood Count 4.67, Mean Corpuscular Volume 99.7 H, Mean Corpuscular Hemoglobin 33.3 H, Mean Corpuscular Hemoglobin Concent 33.4, Red Cell Distribution Width 12.0, Neutrophils (%) (Auto) 75.4 H, Lymphocytes (%) (Auto) 13.0 L, Monocytes (%) (Auto) 7.1 H, Eosinophils (%) (Auto ) 2.4, Basophils (%) (Auto) 0.2, Neutrophils # (Auto) 7.4, Lymphocytes # (Auto) 1.3 L, Monocytes # (Auto) 0.7, Eosinophils # (Auto) 0.2, Basophils # (Auto) 0.0 Microbiology Microbiology 12/15/16 Blood Culture - Final, Complete NO GROWTH AFTER 5 DAYS 12/15/16 Blood Culture - Final, Complete NO GROWTH AFTER 5 DAYS 12/16/16 Acid Fast Stain - Final, Resulted 12/16/16 Mycobacterial Culture, Resulted Pending 12/16/16 Fungal Smear, Resulted Pending 12/16/16 Fungal Culture, Resulted Pending 12/16/16 Gram Stain - Final, Complete 12/16/16 Anaerobic Culture - Final, Complete 12/16/16 Body Fluid Culture - Final, Complete 12/15/16 Gram Stain - Final, Complete 12/15/16 Sputum Culture - Final, Complete Pseudomonas Aeruginosa Enterobacter Cloacae Complex Sona Braxton Dec 22, 2016 07:53 Esteban Willson M.D. Dec 22, 2016 16:19 Sona Braxton Dec 22, 2016 07:53
--- NOTE | 2016-12-22 09:02 | REP ---
Clinical: Follow up pleural effusion. Technique: PA and lateral. Comparison: 12/21/2016. Findings: Mediastinum and cardiac silhouette are stable. Lung marie demonstrate stable acute/chronic infiltrates and interstitial changes. Small residual right pleural effusion/reaction is unchanged from 12/21/2016. No pneumothorax. Multiple healed rib fractures noted. Surgical clips in the right neck stable. Impression: Stable appearance of the mediastinal and pleuroparenchymal changes when compared to 12/21/2016. Signed by Prashant Decker MD 12/22/2016 08:54 A
[2016-12-22] MEDS ORDERED: GENTAMICIN 140 MG in D5W 50 ML IV SCH (10:00)
[2016-12-22] MEDS: NYSTATIN 500,000 U/5 ML SUSP UDC PO SCH ×4 (10:41→20:33)
[2016-12-22] MEDS: SOTALOL HCL 80 MG TAB PO SCH ×2 (10:41→20:56)
[2016-12-22] MEDS: MOM 30ML SUSPENSION UDC PO SCH (10:41)
[2016-12-22] MEDS: DOCUSATE SODIUM 100 MG CAP PO SCH ×2 (10:41→20:33)
[2016-12-22] MEDS: predniSONE 20 MG TAB PO SCH (10:42)
[2016-12-22] MEDS: ENOXAPARIN 30 MG/0.3 ML SYR (J1650) SC SCH (10:42)
[2016-12-22] MEDS: FUROSEMIDE 20 MG TAB PO SCH (10:42)
[2016-12-22] MEDS: PANTOPRAZOLE 40MG TAB (PROTONIX) PO SCH (10:42)
[2016-12-22] MEDS: LISINOPRIL *2.5 MG* TAB PO SCH (12:36)
[2016-12-22] MEDS: CEFEPIME HCL 2 GM in D5W MINI-BAG PLUS 50 ML IV SCH (12:37)
[2016-12-22 14:00] VITALS: BP 137/72
[2016-12-22] MEDS: ATORVASTATIN 10 MG TAB PO SCH (20:33)
[2016-12-22 22:00] VITALS: BP 111/65
[2016-12-23] MEDS: IPRATROPIUM 0.5MG/ALBUTEROL 2.5MG INH SOL UD 3ML (DUONEB)(J7620) NEB SCH ×4 (01:25→20:29)
[2016-12-23 06:00] VITALS: BP 137/73
[2016-12-23] MEDS: LEVOTHYROXINE 0.125 MG TAB (125 MCG) PO SCH (06:07)
[2016-12-23] MEDS: PIPERACILLIN/TAZOBACTAM SOD 3.375 GM in D5W MINI-BAG PLUS 50 ML IV SCH ×4 (06:07→23:10)
[2016-12-23] MEDS: SLF 3 ML SYR IV SCH ×3 (06:08→21:20)
[2016-12-23] MEDS: MOM 30ML SUSPENSION UDC PO SCH (08:01)
[2016-12-23] MEDS: NYSTATIN 500,000 U/5 ML SUSP UDC PO SCH ×4 (08:01→21:16)
[2016-12-23] MEDS: DOCUSATE SODIUM 100 MG CAP PO SCH ×2 (08:02→21:16)
[2016-12-23] MEDS: SOTALOL HCL 80 MG TAB PO SCH ×2 (08:02→21:19)
[2016-12-23] MEDS: ENOXAPARIN 30 MG/0.3 ML SYR (J1650) SC SCH (08:02)
[2016-12-23] MEDS: PANTOPRAZOLE 40MG TAB (PROTONIX) PO SCH (08:02)
[2016-12-23] MEDS: predniSONE 20 MG TAB PO SCH (08:02)
--- NOTE | 2016-12-23 09:15 | IPNPDOC ---
Subjective General Date Seen The patient was seen on 12/23/16. Subjective Chief Complaint/HPI The patient is a 76-year-old male admitted with a reason for visit of COPD. Events since last encounter Denies c/o. Unable to wean down on oxygen. Constitutional: Denies: Chills, Fever, Night Sweats ENT: Denies: Dysphagia, Ear Pain, Head Aches Skin: Denies: Breakdown, Lesions, Rash Pulmonary: Reports: Dyspnea, Denies: Cough Cardiovascular: Denies: Chest Pain, Lt Headedness, Orthopnea, Palpitations, Paroxysmal Noc. Dyspnea Gastrointestinal: Denies: Abdominal Pain, Constipation, Diarrhea, Nausea, Vomiting Psych: Reports: Mood Normal, Denies: Depression, Memory Issues Objective Physical Examination General Exam: Positive: Alert, No Acute Distress ENT Exam: Positive: Other ENT (oral thrush noted.) Neck Exam: Positive: Other (mass to right supraclvicular area. hard, non-tender ), Supple, Negative: JVD Chest Exam: Positive: Clear to auscultation, Other (dressing to chest tube site : C/D/I) Heart Exam: Positive: Rate Normal, Regular Rhythm Abdomen Exam: Positive: Normal bowel sounds, Soft, Negative: Tenderness Extremity Exam: Negative: Edema Skin Exam: Positive: Nl turgor and temperature Psych Exam: Positive: Mental status NL Assessment /Plan Problems Problems: (1) SIA (acute kidney injury) Status: Acute Problem Text: 12/23/2016: repeat labs ordered for today. 12/22 cr to 1.3 from baseline 0.9-therefore, gent/ACEI/furosemide held (2) Empyema Status: Acute Problem Specific Plan: Consult Specialist, Monitor Clinically, Repeat Labs Problem Text: 12/15/16 SCX moderate P.aeruginosa res to levo 12/22/16: plan is for Antibiotic tx until 12/24 at a minimum. Potential for DC . Will have direct referral to Dr. Feldman for initiation of Chemotx. WBC stable at 9 today. Cr is elevated at 1.3. Will monitor pharmacy monitoring with gent levels. 12/21 - Pt has empyema. Xray improved compared to before Tube placement. Dr Mills following. Pt's chest tube was removed 12/17. He has had some drainage at the site. Sputum cx positive for Pseudomonas and Enterobacter cloacae. On Zosyn and Gent. WBC up to 10.1 today (was 8.8 yesterday). On PO Prednisone 40mg daily. Will Decrease the Prednisone to 20 mg daily today. Plan is to treat the infection and then set up with Dr Feldman to begin chemo once infection has been treated. 12/20 - Pt has empyema. Dr Mills following. Pt's chest tube was removed 12/17. He has had some drainage at the site. Sputum cx positive for Pseudomonas and Enterobacter cloacae. On Zosyn and Gent. WBC down to 8.8 today. On PO Prednisone. Plan is to treat the infection and then set up with Dr Feldman to begin chemo once infection has been treated. 12/19/2016: CT dressing with minimal drainage. Will continue UV abx for 5-7 days. WBC 9,000 today. 12/18 - Pt has empyema. Dr Mills following and removed chest tube yesterday. Sputum cx positive for Pseudomonas and Enterobacter cloacae. On Zosyn and Gent (Zithro and Ceftriaxone were d/c'ed yesterday). WBC down slightly to 12.3 today. IV solumedrol was d/c'ed and now on PO Prednisone. Plan is to treat the infection and then set up with Dr Feldman to begin chemo once infection has been treated. 12/17 - Pt is being followed by Dr Mills, who placed a chest tube yesterday and removed the chest tube today. Concern for malignant pleural effusion, however it appears that it is an empyema. Additionally, WBC up, and sputum cx positive for Pseudomonas and Enterobacter cloacae. Plan was going to be d/c home with follow up with Dr Feldman tomorrow to start chemo, however, now given the empyema and the positive sputum cx, will need to keep the pt longer for continued abx treatment for pneumonia caused by those organisms. Will d/c the Zithro and Ceftriaxone, and change to Zosyn and Gent. Will consult pharmacy to assist with gent dosing. Getting IV Solumedrol. Getting supp O2. Agree with need for antibiotic therapy for pseudomonas and enterobacter. he wouldn't be able to proceed with chemo with this infection. The pleural fluid showed some wbc but impressively low pH, elevated LDH, c/w empyema. Drainage has stopped so Dr. Mills removed Chest tube today. (3) Thyroid cancer Status: Chronic Problem Specific Plan: Monitor Clinically Problem Text: Pt will need to follow up with Dr Feldman at d/c to likely begin chemo. Case has been discussed with Dr Feldman. Pt getting radiation therapy with Dr Mcqueen. 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 Case has been discussed with Dr Feldman. Pt getting radiation therapy with Dr Mcqueen. The above plan on hold until infection is suppressed. (5) Hypothyroidism Status: Chronic Problem Specific Plan: Monitor Clinically Problem Text: On Synthroid. (6) HTN (hypertension) Status: Chronic Problem Specific Plan: Monitor Clinically Problem Text: On Lisinopril and sotolol. Plan/VTE VTE Prophylaxis Ordered?: Yes Plan Anticipated Discharge: Home (woth oxygen. ) VS, I&O, 24H, Fishbone Vital Signs/I&O Vital Signs Date Time Temp Pulse Resp B/P Pulse Ox O2 Delivery O2 Flow Rate FiO2 12/23/16 08:02 52 137/73 12/23/16 06:00 96.8 20 95 Nasal Cannula 2.0 I&O- Last 24 Hours up to 6 AM 12/23/16 05:59 Intake Total 2770 ml Output Total 2600 ml Balance 170 ml Laboratory Data Microbiology Microbiology 12/15/16 Blood Culture - Final, Complete NO GROWTH AFTER 5 DAYS 12/15/16 Blood Culture - Final, Complete NO GROWTH AFTER 5 DAYS 12/16/16 Acid Fast Stain - Final, Resulted 12/16/16 Mycobacterial Culture, Resulted Pending 12/16/16 Fungal Smear - Final, Resulted 12/16/16 Fungal Culture, Resulted Pending 12/16/16 Gram Stain - Final, Complete 12/16/16 Anaerobic Culture - Final, Complete 12/16/16 Body Fluid Culture - Final, Complete 12/15/16 Gram Stain - Final, Complete 12/15/16 Sputum Culture - Final, Complete Pseudomonas Aeruginosa Enterobacter Cloacae Complex Sona BraxtonP Dec 23, 2016 09:15
--- NOTE | 2016-12-23 13:31 | REP ---
Clinical: Pleural effusion. Technique: PA and lateral. Comparison: 12/22/2016, 12/18/2016. Findings: Mediastinum and cardiac silhouette are stable. Dual lead pacemaker stable. Lung marie demonstrate diffuse chronic interstitial changes with fibrosis and scarring. Small residual right pleural effusion is suggested. Skeletal structures demonstrate osteopenia and evidence for old healed rib fractures. Impression: Diffuse chronic interstitial changes and fibrosis similar to prior examination. Small residual right pleural effusion. Signed by Prashant Decker MD 12/23/2016 01:23 P
[2016-12-23] MEDS: CEFEPIME HCL 2 GM in D5W MINI-BAG PLUS 50 ML IV SCH (13:33)
[2016-12-23 14:00] VITALS: BP 126/68
[2016-12-23 17:05] LABS: ALBUMIN 2.9 GM/DL (3.2-5.2); ALBUMIN/GLOBULIN RATIO 0.76 (1.00-1.93); BILIRUBIN,TOTAL 0.4 MG/DL (0.2-1.0); CALCIUM LEVEL 9.2 MG/DL (8.8-10.2); CREATININE FOR GFR 1.45 MG/DL (0.70-1.30); GLOMERULAR FILTRATION RATE 50.2 (>42); POTASSIUM SERUM 4.7 MEQ/L (3.5-5.1); TOTAL PROTEIN 6.7 GM/DL (6.4-8.2)
[2016-12-23 17:47] LABS: MEAN CORPUSCULAR HEMOGLOBIN 32.6 pg (27.0-33.0); MEAN CORPUSCULAR HGB CONC 31.8 g/dl (32.0-36.5); MEAN CORPUSCULAR VOLUME 102.3 fl (80.0-96.0); RED CELL DISTRIBUTION WIDTH 12.7 % (11.5-14.5); WHITE BLOOD COUNT 12.1 K/mm3 (4.0-10.0)
[2016-12-23] MEDS: ATORVASTATIN 10 MG TAB PO SCH (21:16)
[2016-12-23 22:00] VITALS: BP 118/84
[2016-12-24] MEDS: IPRATROPIUM 0.5MG/ALBUTEROL 2.5MG INH SOL UD 3ML (DUONEB)(J7620) NEB SCH ×2 (02:16→08:00)
[2016-12-24] MEDS: PIPERACILLIN/TAZOBACTAM SOD 3.375 GM in D5W MINI-BAG PLUS 50 ML IV SCH (05:26)
[2016-12-24] MEDS: SLF 3 ML SYR IV SCH (05:28)
[2016-12-24] MEDS: LEVOTHYROXINE 0.125 MG TAB (125 MCG) PO SCH (05:30)
[2016-12-24 06:00] VITALS: BP 128/65
[2016-12-24 06:15] LABS: BASO % 0.2 % (0.0-1.0); EOS % 1.4 % (0.0-3.0); LARGE UNSTAINED CELL % 1.3 % (0.0-4.0); LYMPH # 1.5 K/mm3 (1.5-4.5); LYMPH % 13.1 % (24.0-44.0); MEAN CORPUSCULAR HEMOGLOBIN 32.8 pg (27.0-33.0); MEAN CORPUSCULAR HGB CONC 32.2 g/dl (32.0-36.5); MEAN CORPUSCULAR VOLUME 101.8 fl (80.0-96.0); MONO % 8.8 % (0.0-5.0); NEUTROPHILS % 75.1 % (36.0-66.0); PLATELET COUNT, AUTOMATED 290 k/mm3 (150-450); RED CELL DISTRIBUTION WIDTH 12.5 % (11.5-14.5); WHITE BLOOD COUNT 10.7 K/mm3 (4.0-10.0)
[2016-12-24 06:16] LABS: EOS # 0.2 K/mm3 (0.0-0.50); LARGE UNSTAINED CELL # 0.1 K/mm3 (0.0-0.4); MONO # 0.9 K/mm3 (0.0-0.8)
[2016-12-24 06:29] LABS: ALBUMIN 2.4 GM/DL (3.2-5.2); ALBUMIN/GLOBULIN RATIO 0.67 (1.00-1.93); BILIRUBIN,TOTAL 0.4 MG/DL (0.2-1.0); CREATININE FOR GFR 1.37 MG/DL (0.70-1.30); GLOMERULAR FILTRATION RATE 53.6 (>42); POTASSIUM SERUM 4.3 MEQ/L (3.5-5.1)
[2016-12-24] MEDS: ENOXAPARIN 30 MG/0.3 ML SYR (J1650) SC SCH (10:13)
[2016-12-24] MEDS: PANTOPRAZOLE 40MG TAB (PROTONIX) PO SCH (10:13)
[2016-12-24] MEDS: NYSTATIN 500,000 U/5 ML SUSP UDC PO SCH (10:13)
[2016-12-24] MEDS: MOM 30ML SUSPENSION UDC PO SCH (10:13)
[2016-12-24 10:14] VITALS: BP 128/65
[2016-12-24] MEDS: DOCUSATE SODIUM 100 MG CAP PO SCH (10:14)
[2016-12-24] MEDS: predniSONE 20 MG TAB PO SCH (10:14)
[2016-12-24] MEDS: SOTALOL HCL 80 MG TAB PO SCH (10:14)
--- NOTE | 2016-12-24 10:24 | REP ---
Clinical: Pleural effusion. Technique: PA and lateral. Comparison: 12/22/2016. Findings: Diffuse acute on chronic pleuroparenchymal changes are similar to prior examinations. Pleural parenchymal opacities involving the right inferolateral region may be slightly increased from prior examination. Mediastinum and cardiac silhouette stable. Skeletal structures unchanged. Right apical mass unchanged. Impression: Diffuse acute on chronic changes relatively similar to prior examination although subtle increase at the right lateral base cannot definitively be excluded. Signed by Prashant Decker MD 12/24/2016 10:15 A
--- NOTE | 2016-12-24 19:06 | DSES ---
DATE OF ADMISSION: 12/15/2016 DATE OF DISCHARGE: 12/24/2016 ATTENDING PHYSICIAN: Dr. Gabriella Sanchez. PRIMARY CARE PROVIDER: Dr. Esteban Willson. HISTORY OF PRESENT ILLNESS: A 76-year-old male with past medical history significant for chronic obstructive pulmonary disease (COPD), hypertension, hypothyroidism, and a recent diagnosis of recurrent papillary thyroid cancer with metastasis, undergoing radiation. The patient presented to [facility] Emergency Department via emergency medical services (EMS), with a two-day history of shortness of breath; oxygen saturation on presentation was 86% on room air. The patient was subsequently oxygenated. Workup was completed and noted to have a right lower lobe pneumonia with COPD exacerbation. HOSPITAL COURSE: The patient was noted to have a new lesion to his right lung and diffuse infiltrate to the lower right lung field specifically. The patient remained with supportive care including oxygen support, antibiotics, nebulizers and steroids. The patient's oncologist was consulted, along with Dr. Sharif Mills, for evaluation of the right pleural lesion. It was noted that the patient had a loculated pleural effusion. Dr. Mills decided to drain the significant pleural effusion. After draining of the effusion, it was noted that the patient had a significant empyema. Gram's stain was completed and grew Pseudomonas aeruginosa and Enterobacter cloacae. Sensitivities included meropenem, gentamicin, ceftazidime, and cefepime. The patient was subsequently placed on piperacillin-tazobactam and cefepime. He has received intravenous (IV) antibiotics for the last five days. The patient has been afebrile. Chest tube dressing has remained clean, dry and intact with minimal drainage. Dr. Mills has been following the patient accordingly. The patient has required oxygenation throughout his hospitalization, unable to wean off his two liters, and also has shown some hypoxia with exertion, needing to have his oxygenation increased to four liters. Of note, he did stop his steroids and this may be contributing to some of his exertional hypoxia. Intake and output have remained stable. PHYSICAL EXAMINATION: GENERAL: On physical exam today, the patient denies chest pain, headache, blurred vision or dizziness. Does admit to some dyspnea which he states is at his baseline. Admits to a mild cough without sputum production. White blood cell count today is 10,000 which is down from 12,000 the day previous. Hemoglobin and hematocrit stable at 14 and 45. Electrolytes are stable. Creatinine is 1.37 which is coming down nicely. HEENT: Neck is supple without jugular venous distention (JVD) or decreased range of motion. He does have palpable, nontender mass to the right subclavicular area, for which he is receiving radiation therapy. CARDIOVASCULAR: Heart rate and rhythm are regular. PULMONARY: Lungs are clear with some slight diminishing throughout. No wheezes, no rales, no rhonchi appreciated. ABDOMEN: Soft and nontender with positive bowel sounds times all four quadrants. EXTREMITIES: Bilateral lower extremities are without any edema. NEUROLOGIC: He is alert and oriented times three. PSYCHIATRIC: Affect is slightly flat, yet conversation is appropriate and congruent and patient maintains eye contact well. ASSESSMENT: 1. Loculated pleural effusion with empyema. 2. Chronic obstructive pulmonary disease (COPD) exacerbation. 3. Metastatic papillary thyroid cancer. 4. Hypothyroidism. 5. Hypertension. 6. Hyperlipidemia. PLAN: The patient will be discharged home. Diet is as tolerated. Activity is as tolerated. He will remain on oxygen two liters nasal cannula at rest, and increase to four liters nasal cannula on exertion. The patient will followup with his primary care physician (PCP), Dr. Esteban Willson, within the next seven days. He will followup with Dr. Sharif Mills per Dr. Mills's recommendation. He will followup with Dr. Manuel Feldman as soon as possible so that he can start his chemotherapy treatment. He will followup with Dr. Smith as scheduled to monitor his radiation treatments. The patient will receive his radiation treatment today prior to discharge. MEDICATIONS: - prednisone 40 mg daily for the next five days; he is to contact his PCP once that runs out for further indications for his steroid taper - albuterol sulfate two puffs via inhalation four times a day as needed for shortness of breath - Combivent Respimat two puffs four times a day as needed for shortness of breath - atorvastatin 10 mg by mouth at bedtime - calcium with vitamin D3 600 mg with 200 international units one tablet daily - furosemide 20 mg tablet; he is to take a half tab by mouth twice a day - Incruse Ellipta 62.5 mcg one inhalation daily - levothyroxine 125 mcg by mouth daily - lisinopril 2.5 mg by mouth daily - multivitamin one daily - sotalol 80 mg by mouth twice a day The patient is discharged in stable satisfactory condition. No further questions at the time of discharge.
== END 2016-12-24 12:00 | disposition home or self-care (01) | DRG 177 ==
LOC: M ED 10:17 → M ED INP 15:03 → M PCU 12-16 11:37 → M MSPAV 12-21 15:53
PROVIDERS: ADMIT Internal Medicine; ATTEND Family Medicine
PROC: 0W9930Z Drainage of Right Pleural Cavity with Drainage Device, Percutaneous Approach (ICD-10-PCS; principal; 2016-12-16)
DX: J86.9 Pyothorax without fistula (principal); J15.1 Pneumonia due to Pseudomonas; J15.6 Pneumonia due to other Gram-negative bacteria; J44.1 Chronic obstructive pulmonary disease with (acute) exacerbation; N17.9 Acute kidney failure, unspecified; C78.00 Secondary malignant neoplasm of unspecified lung; B37.0 Candidal stomatitis; C73 Malignant neoplasm of thyroid gland; I10 Essential (primary) hypertension; E03.2 Hypothyroidism due to medicaments and other exogenous substances; E78.5 Hyperlipidemia, unspecified; Z87.891 Personal history of nicotine dependence; Z79.899 Other long term (current) drug therapy; I36.0 Nonrheumatic tricuspid (valve) stenosis; I25.10 Atherosclerotic heart disease of native coronary artery without angina pectoris; I50.9 Heart failure, unspecified; Z95.810 Presence of automatic (implantable) cardiac defibrillator

== ENCOUNTER 2016-12-16 11:10 | Outpatient (RCR) | payer OTHER ==
[~2016-12-16 11:10] MED LIST changes: +ALBU17IN INH; +ATOR1TAB19 PO; +CALC600T57 PO; +FURO20TA2 PO; +INCR1INH INH; +LEVO125T3 PO; +LISI2.5T3 PO; +SOTA80TA2 PO
[2016-12-17] MEDS ORDERED: ZITH500T PO (10:19)
[2016-12-17] MEDS ORDERED: PRED20TA PO (10:19)
[2016-12-17] MEDS ORDERED: CEFD1CAP8 PO (10:19)
--- NOTE | 2016-12-18 08:45 | RADONC ---
RADIATION ONCOLOGY SIMULATION NOTE DATE: 12/16/2016 CHART NUMBER: [id number]. Mr. Oseguera was taken to the linear accelerator today for clinical setup of his electron beam right supraclavicular field. Setup was accomplished without difficulty or discomfort. Radiation treatment planning is underway and radiation treatments will begin subsequently. An immobilization device was created and will be used throughout the course of treatment. I was physically present throughout the course of CT simulation.
--- NOTE | 2016-12-18 11:46 | RADONC ---
RADIATION ONCOLOGY INPATIENT CONSULT NOTE DATE: 12/16/2016 RADIATION CHART NUMBER: [id number] DIAGNOSIS: Anaplastic thyroid cancer. STAGE: IVC. ECOG PERFORMANCE STATUS: 4. CONSULTATION NOTE: Mr. 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 HISTORY OF PRESENT ILLNESS: The patient has a history of previous thyroid cancer. He was originally seen for papillary thyroid cancer in the right neck in July of 2007. He underwent right modified radical neck dissection and subtotal thyroidectomy. Once again pathology at that time revealed papillary carcinoma of the thyroid as well as a 3.5 cm large nodule of papillary carcinoma in the right neck. 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 There was extranodal extension noted. More recently the patient was found to have a rapidly enlarging right supraclavicular lymph node and underwent biopsy on 11/27/2016. Pathology revealed metastatic undifferentiated carcinoma consistent with a thyroid primary (anaplastic thyroid carcinoma). A PET scan was done on 12/10/2016 and shows innumerable foci of pulmonary metastatic hypermetabolic uptake as well as metabolic uptake in the mediastinal area, right supraclavicular area and multiple bones as well. There was also a pleural effusion on the right which was locular in nature. Recently the patient was walking in the [facility] and developed sudden shortness of breath. He presented to the ER and on 12/15/[address] which showed progressive multiloculated right pleural effusion as well as progressive pulmonary metastatic disease when compared to his recent PET scan. The patient has been admitted and is presently on antibiotics. He is seeing us for consultation regarding the possibility of palliative radiation therapy to his rapidly enlarging right supraclavicular mass before it breaks through the skin. PAST MEDICAL HISTORY: The patient's past medical history is positive for prostate cancer. He also has a long history of emphysema and COPD. He has a history of hypothyroidism and thyroid cancer as mentioned above. ALLERGIES: The patient has no known drug allergies. SOCIAL HISTORY: The patient has smoked three packs of cigarettes a day for 35 years. He quit 20 years ago. He does not abuse alcohol. FAMILY HISTORY: The patient's family history is positive for a father with some type of malignancy. He also has a sister with some type of female malignancy and a brother with colon cancer. REVIEW OF SYSTEMS: The patient's review of systems is positive for shortness of breath. He is presently on 4 liters of oxygen. He has generalized weakness and fatigue. He has physical limitations secondary to his shortness of breath. He is presently in a wheelchair. He denies nausea, vomiting, fevers, chills, night sweats, diplopia, headaches, anxiety, depression, visual disturbances, chest pain, urinary or bowel difficulties or bone pain. PHYSICAL EXAMINATION: The patient is a chronically ill-appearing rather cachectic white male who is presenting in a wheelchair on nasal oxygen. HEENT: Exam is normocephalic, atraumatic. Extraocular movements are intact. There is a large protruding supraclavicular / subcutaneous right sided mass present. His lungs have coarse rhonchi and distant breath sounds bilaterally. His heart has regular rate and rhythm. ASSESSMENT: The patient is presenting to us with rapidly progressive anaplastic undifferentiated thyroid cancer for consideration of palliative radiation therapy to his supraclavicular region. Although the patient is a candidate for this treatment I have so informed him I think it is the least of his problems at this time. The disease clearly is growing quite rapidly. I have compared the PET scan from just 6 days ago to the angio CT from yesterday and there is a significant and surprising amount of progression of disease in just a few days. I believe rapid intervention should be considered which would be comprised of systemic therapy. The patient will also be a candidate for hospice at this point. While the patient is an inpatient awaiting care, I am more than happy to treat the supraclavicular area for palliation before the skin breaks. Once again this is not his most significant problem. Indeed he is rapidly gone from walking from blocks and miles without becoming short of breath to suddenly needing 4 liters of oxygen and being in a wheelchair and all this has changed in just 1 week. Seeing how systemic therapy is not possible in this institution I would recommend either transfer to [facility] or another institution or perhaps discharging him as soon as possible and treating him as an outpatient. Once again the other reasonable possibility would be hospice. In summary, I have scheduled the patient for initiation of treatment planning. He will be simulated today and radiation treatments should begin in the morning. I will defer his other management to his medical oncologist, Dr. Feldman. cc: MD Sharif Davis MD Jack Rush, MD
--- NOTE | 2016-12-24 13:10 | RADONC ---
RADIATION ONCOLOGY PROGRESS NOTE DATE: 12/22/2016 CHART NUMBER: Mr. Oseguera is a presently at a dose of 1200 cGy to his right supraclavicular mass and is tolerating treatments quite well at this point with no complaints related to his radiation therapy. He is having no discomfort over the skin mass. The patient's review of systems is positive for his physical limitations secondary to his end-stage disease. It is generally, otherwise noncontributory. He denies nausea, vomiting, fevers, chills, night sweats, diplopia, headaches. PHYSICAL EXAMINATION: The patient is a chronically ill-appearing male who is presenting in a wheelchair with end-stage anaplastic cancer. The mass in the treated field appears to be smaller and shrinking. The skin is not nearly as tight. We apparently are already getting a good response to radiation. The remainder of his physical exam remains unchanged. Mr. Oseguera is tolerating treatments quite well, and radiation will continue as scheduled.
[2016-12-30] MEDS ORDERED: ALBU83IN INH (14:05)
[2016-12-30] MEDS ORDERED: CEFD1CAP8 PO (14:05)
[2016-12-30] MEDS ORDERED: LASI20TA PO (14:05)
--- NOTE | 2016-12-31 10:54 | RADONC ---
RADIATION ONCOLOGY PROGRESS NOTES DATE: 12/29/2016 CHART NUMBER: [id number] Mr. Oseguera is presently at a dose of 2700 cGy to his right supraclavicular mass and is tolerating treatments quite well at this point with no complaints related to his radiation therapy. He is having no skin pain or other difficulties with regards to the radiation. Overall, however the patient's condition continues to deteriorate and he has been getting more short of breath. He has put a call in to hospice and they are discussing inpatient hospice. REVIEW OF SYSTEMS: The patient's review of systems is positive for continued deterioration and increasing shortness of breath with oxygen dependence. He is having no pain in the treated area. His review of systems is negative for nausea, vomiting, fevers, chills, night sweats, diplopia, headaches, chest pain, urinary or bowel difficulties. PHYSICAL EXAMINATION: The patient is chronically ill appearing. The mass in the left supraclavicular area has not decreased in size at all. Indeed, it does seem to be slightly larger. The remainder of his physical exam remains unchanged. Mr. Oseguera is speaking with hospice. I let him know that we could either finish today, but I am more than willing to give him his final fraction tomorrow if he so desires. I have highly recommended hospice at this point. The patient and his family report that he has been by Dr. Feldman and no chemotherapy was recommended. Therefore, hospice is the most reasonable course of action, especially in light of the fact that radiation appears to have failed in shrinking this mass.
--- NOTE | 2017-01-02 07:18 | RADONC ---
RADIATION ONCOLOGY TREATMENT SUMMARY DATE: 12/31/2016 CHART NUMBER: [id number] DIAGNOSIS: Anaplastic thyroid cancer. STAGE: 4C ECOG PERFORMANCE STATUS: 4 TREATMENT SUMMARY: Mr. 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 We treated the patient to his right supraclavicular mass for a total dose of 2700 cGy delivered in nine fractions of 300 cGy over 12 elapsed days from 12/27/2016 through 12/29/2016. The patient's right supraclavicular region was treated on a linear accelerator utilizing a 20 MEV electron beam prescribed to the 90% isodose line via non-phos technique. 0.5 cm of tissue equivalent bolus was placed over the field. We monitored this patient quite closely throughout the course of treatment and unfortunately, not only did his mass not shrink but it appeared to increase in size throughout the course of therapy. In addition, the patient had increasing difficulties with breathing throughout the course of therapy and has decided to discontinue treatment at this time and go onto hospice care. We had planned on delivering an additional fraction of radiation for a total dose of 3000 cGy. Considering the fact that this disease is rapidly progressive, I agree that hospice would be the most reasonable option for him. We are therefore discontinuing him from our treatment schedule as well as followup at this time. cc: MD Sharif aDvis MD Jack Rush, MD
== END 2017-01-06 ==
LOC: M ONCR 11:10
PROVIDERS: ATTEND Radiology Radiation Oncology
DX: C77.3 Secondary and unspecified malignant neoplasm of axilla and upper limb lymph nodes (principal); C73 Malignant neoplasm of thyroid gland

== ENCOUNTER 2016-12-30 12:18 | Observation (INO) | payer OTHER ==
[~2016-12-30] VITALS: Ht 177.8 cm; Wt 65.7 kg
[2016-12-30] VITALS (24 sets, daily range): BP systolic 80–136; BP diastolic 42–78
[~2016-12-30 12:18] MED LIST changes: +CEFD1CAP8 PO; +PRED20TA PO; +ZITH500T PO
[2016-12-30] MEDS ORDERED: IPRATROPIUM 0.5MG/ALBUTEROL 2.5MG INH SOL UD 3ML (DUONEB)(J7620) As Ordered ONE ×3 (12:35→13:35)
[2016-12-30] MEDS ORDERED: methylPREDNISolone INJ 125 MG/2 ML VIAL (J2930) As Ordered ONE (12:44)
[2016-12-30 12:48] LABS: ABG DEVICE NASAL CANN; ABG PARTIAL PRESSURE CO2 42.9 mmHg (35.0-45.0); ABG PARTIAL PRESSURE O2 70.9 mmHg (75.0-100.0); ABG STANDARD HCO3 26.2 MEQ/L (22.0-26.0); ABG TOTAL CO2 28.3 MEQ/L (23.0-31.0); ABG pH (ARTERIAL) 7.416 UNITS (7.350-7.450)
[2016-12-30 12:54] LABS: BASO % 0.2 % (0.0-1.0); EOS # 0.5 K/mm3 (0.0-0.50); EOS % 2.8 % (0.0-3.0); LARGE UNSTAINED CELL # 0.1 K/mm3 (0.0-0.4); LARGE UNSTAINED CELL % 0.8 % (0.0-4.0); LYMPH % 5.4 % (24.0-44.0); MEAN CORPUSCULAR HEMOGLOBIN 33.3 pg (27.0-33.0); MEAN CORPUSCULAR HGB CONC 33.2 g/dl (32.0-36.5); MEAN CORPUSCULAR VOLUME 100.3 fl (80.0-96.0); MONO # 0.9 K/mm3 (0.0-0.8); MONO % 5.4 % (0.0-5.0); NEUTROPHILS % 85.3 % (36.0-66.0); PLATELET COUNT, AUTOMATED 230 k/mm3 (150-450); RED CELL DISTRIBUTION WIDTH 12.8 % (11.5-14.5); WHITE BLOOD COUNT 16.4 K/mm3 (4.0-10.0)
[2016-12-30 13:21] LABS: ANION GAP 10 MEQ/L (8-16); BLOOD UREA NITROGEN 28 MG/DL (7-18); CALCIUM LEVEL 9.3 MG/DL (8.8-10.2); CARBON DIOXIDE LEVEL 30 MEQ/L (21-32); CHLORIDE LEVEL 99 MEQ/L (98-107); CREATININE FOR GFR 1.02 MG/DL (0.70-1.30); GLOMERULAR FILTRATION RATE > 60.0 (>42); GLUCOSE, FASTING 86 MG/DL (83-110); SODIUM LEVEL 139 MEQ/L (136-145)
--- NOTE | 2016-12-30 13:30 | REP ---
Portable chest, the patient semi upright, single AP view: Comparisons 12/24/2016. There is a comparison chest CT dated 12/15/2016. The right pleural effusion has significantly increased from 12/24/2016. There is diffuse interstitial coarsening throughout the right lung. There is also increased from 12/24/2016. The left lung remains clear. Cardiac size is normal. Pacemaker is again noted, unchanged. Impression: Increasing right pleural effusion. Increasing right lung interstitial coarsening. Signed by Kyle Green MD 12/30/2016 01:22 P
[2016-12-30] MEDS ORDERED: LASI20TA PO (14:05)
[2016-12-30] MEDS ORDERED: CEFD1CAP8 PO (14:05)
[2016-12-30] MEDS ORDERED: ALBU83IN INH (14:05)
[2016-12-30] MEDS ORDERED: ISOVUE-370 76% 100ML VIAL (Q9967) As Ordered ONE (14:34)
--- NOTE | 2016-12-30 16:07 | REP ---
Clinical: Chest pain and shortness of breath. Technique: Axial contrast enhanced images from the thoracic inlet to the upper abdomen using 100 ml Isovue 370 intravenous contrast material with coronal and sagittal re-formations. Findings: Satisfactory enhancement of the pulmonary vasculature is achieved and no filling defects are identified to suggest pulmonary embolus. 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 Mediastinum again demonstrates atherosclerotic changes to the thoracic aorta and coronary arteries without pericardial effusion or cardiomegaly. Impression: 1. No evidence for pulmonary embolus. 2. Continued evidence for neoplastic changes including adenopathy, scattered bilateral metastatic foci, lymphangitic carcinomatosis, and partially loculated [id number] right pleural effusion. Findings are relatively stable compared to 12/15/2016. Signed by Prashant Decker MD 12/30/2016 03:59 P
[2016-12-30] MEDS ORDERED: ALBUTEROL 90 MCG/ACT 8GM HFA INHALER INH PRN (17:00)
[2016-12-30] MEDS ORDERED: NORCO, ANEXSIA 5/325MG TABLET (HYDROcodone/ACETAMINOPHEN) PO PRN (17:00)
[2016-12-30] MEDS ORDERED: BISACODYL 10 MG SUPP PR PRN (17:00)
[2016-12-30] MEDS ORDERED: PERCOCET 5MG/325MG TAB PO PRN ×2 (17:00)
[2016-12-30] MEDS ORDERED: ACETAMINOPHEN TAB 650MG DOSE (2X325MG) PO PRN (17:00)
[2016-12-30] MEDS ORDERED: ALBUTEROL SULFATE 2.5 MG/0.5 ML INH NEB SOLN INH PRN (17:00)
[2016-12-30] MEDS ORDERED: ceFAZolin SOD 1 GM in D5W MINI-BAG PLUS 50 ML IV ONE (17:00)
[2016-12-30] MEDS ORDERED: ONDANSETRON 4MG/2ML VIAL (J2405) IV PRN (17:00)
--- NOTE | 2016-12-30 18:16 | EDDOCDS ---
Physician Documentation [facility] Name: Kasi Oseguera Age: 76 yrs Sex: Male : 1940 Arrival Date: 12/30/2016 Time: 12:18 Bed 2 Private MD: Esteban Willson E. Disposition: 12/30/16 16:57 Hospitalization ordered by Loy Gomez for Inpatient Admission. Preliminary diagnosis is Pleural effusion, not elsewhere classified. - [facility] - Status is Inpatient Admission. mcp - Condition is Stable. - Problem is an acute exacerbation. - Symptoms are unchanged. Historical: - Allergies: no known allergies; - Home Meds: 1. albuterol sulfate 2.5 mg /3 mL (0.083 %) Nebulizer nebu 3 mL 4 times per day 2. Lasix 20 mg Oral tab 1 tab once daily 3. lisinopril 2.5 mg Oral tab 1 tab once daily 4. atorvastatin 10 mg oral tab 1 tab once daily 5. levothyroxine 125 mcg Oral tab once daily 6. Incruse Ellipta 62.5 mcg/actuation inhalation dsdv 1 puff once daily 7. Ventolin HFA 90 mcg/actuation Nebulizer HFAA 2 puffs every 4 hours as needed 8. sotalol 80 mg Oral tab 1 tab 2 times per day - PMHx: COPD; Hypercholesterolemia; Hypertension; Hypothyroidism; Cancer, Thyroid; Cancer, Lung; - PSHx: Thyroidectomy; Prostatectomy; AICD insertion; - Social history: Smoking status: Patient states former smoker of tobacco. No barriers to communication noted, The patient speaks fluent [place], Speaks appropriately for age. - Family history: Not pertinent. - : The pt / caregiver states he / she is not on anticoagulants. Home medication list is obtained from the patient, [employer] import data. - Exposure Risk Screening:: None identified. Vital Signs: 12/30 12:24 BP 169 / 78 (auto/); mlb1 12:25 Pulse Ox 93% ; mlb1 12:25 BP 108 / 70; Pulse 86; Resp 20; Temp 97.4(O); Pulse Ox 92% on 3 lpm NC; Pain 0/10; mlb1 12:28 BP 169 / 78; Pulse 86; Resp 28; Temp 98.0(O); Pulse Ox 94% on 3 lpm NC; Weight 71.67 kg mlb1 / 158.01 lbs (R); Height 5 ft. 10 in. (177.80 cm) (R); Pain 0/10; 12:30 BP 147 / 69 (auto/); mlb1 12:31 Pulse 88 MON; Pulse Ox 94% ; mlb1 12:45 BP 111 / 70 (auto/); mlb1 12:46 Pulse 84 MON; Pulse Ox 94% ; mlb1 13:00 BP 119 / 70 (auto/); mlb1 13:01 Pulse 82 MON; Pulse Ox 95% ; mlb1 13:15 BP 121 / 67 (auto/); mlb1 13:16 Pulse 81 MON; Pulse Ox 98% ; mlb1 13:30 BP 131 / 65 (auto/); mlb1 13:31 Pulse 82 MON; Pulse Ox 94% ; mlb1 13:45 BP 142 / 85 (auto/); mlb1 13:46 Pulse 84 MON; Pulse Ox 97% ; mlb1 13:51 BP 142 / 85; Pulse 82; Resp 24; Pulse Ox 93% on 3 lpm NC; Pain 0/10; mlb1 14:00 BP 118 / 71 (auto/); mlb1 14:01 Pulse 85 MON; Pulse Ox 91% ; mlb1 14:15 BP 122 / 69 (auto/); mlb1 14:16 Pulse 83 MON; Pulse Ox 92% ; mlb1 14:30 BP 120 / 69 (auto/); mlb1 14:31 Pulse 85 MON; Pulse Ox 93% ; mlb1 14:45 BP 113 / 63 (auto/); mlb1 14:46 Pulse 85 MON; Pulse Ox 92% ; mlb1 15:00 BP 124 / 75 (auto/); mlb1 15:01 Pulse 89 MON; Pulse Ox 92% ; mlb1 15:15 BP 116 / 65 (auto/); mlb1 15:16 Pulse 84 MON; Pulse Ox 92% ; mlb1 15:30 BP 86 / 58 (auto/); mlb1 15:42 Pulse Ox 86% ; mlb1 15:46 BP 115 / 77 (auto/); mlb1 15:47 Pulse 88 MON; Pulse Ox 91% ; mlb1 16:00 BP 109 / 73 (auto/); mlb1 16:00 Pulse 86 MON; Pulse Ox 92% ; mlb1 16:15 BP 119 / 59 (auto/); mlb1 16:15 Pulse 80 MON; Pulse Ox 93% ; mlb1 16:30 BP 124 / 71 (auto/); mlb1 16:30 Pulse 81 MON; Pulse Ox 92% ; mlb1 16:45 BP 115 / 75 (auto/); mlb1 16:45 Pulse 88 MON; Pulse Ox 92% ; mlb1 17:00 BP 116 / 67 (auto/); mlb1 17:00 Pulse 88 MON; Pulse Ox 90% ; mlb1 17:15 BP 121 / 78 (auto/); mlb1 17:15 Pulse 89 MON; Pulse Ox 91% ; mlb1 17:24 BP 108 / 70 (auto/); mlb1 17:24 Pulse 87 MON; Pulse Ox 92% ; mlb1 17:30 BP 126 / 72 (auto/); mlb1 17:30 Pulse 89 MON; Pulse Ox 92% ; mlb1 17:45 BP 119 / 56 (auto/); mlb1 17:45 Pulse 85 MON; Pulse Ox 91% ; mlb1 18:00 BP 91 / 53 (auto/); mlb1 18:00 Pulse 86 MON; Pulse Ox 92% ; mlb1 18:07 BP 99 / 63; Pulse 86; Resp 20; Temp 97.6(O); Pulse Ox 93% on 3 lpm NC; Pain 0/10; mlb1 12:28 Body Mass Index 22.67 (71.67 kg, 177.80 cm) mlb1 MDM: 12:24 -Blood Culture (Adults Only), peripheral from different site, or from device/port/PICC sd1 etc. if present ordered. 12:24 Call Respiratory ordered. sd1 12:24 Form Presser/Pulse Ox/q 15 min VS ordered. sd1 12:24 IV Saline Lock ordered. sd1 12:24 Oxygen at 4L/Min NC or Home dosage ordered. sd1 12:24 Rhythm Strip to chart ordered. sd1 12:25 Albuterol-Ipratropium 1 neb Nebulizer every 20 minutes x3 ordered. sd1 12:25 -Arterial Blood Gas Ordered. EDMS 12:25 -Blood Culture Ordered. EDMS 12:25 B-Type Natiuretic Peptide Ordered. EDMS 12:25 Basic Metabolic Profile Ordered. EDMS 12:25 CBC with Diff Ordered. EDMS 12:25 Cardiac Injury Profile Ordered. EDMS 12:25 Troponin Ordered. EDMS 12:26 Solu-MEDROL 125 mg IVP once ordered. sd1 12:26 Call Respiratory complete. jrd 12:26 Chest, 1 View Ordered. EDMS 12:26 ECG WITH READING ER PHYS+CARDIAG ordered. EDMS 12:28 -Blood Culture (Adults Only), peripheral from different site, or from device/port/PICC jrd etc. if present complete. 12:28 BED REQUEST+ADM ordered. EDMS 12:29 BLOOD CULTURES Ordered. EDMS 13:41 -Arterial Blood Gas Reviewed. sd1 13:41 B-Type Natiuretic Peptide Reviewed. sd1 13:41 Basic Metabolic Profile Reviewed. sd1 13:41 CBC with Diff Reviewed. sd1 13:41 Cardiac Injury Profile Reviewed. sd1 13:41 Troponin Reviewed. sd1 13:46 CT Chest Angio R/O PE Ordered. EDMS 15:26 Financial registration complete. zo 16:11 [facility] Payment Agreement was scanned into [employer] and attached to record. zo 17:04 Admission / Observation Status ordered. EDMS 17:07 Chest, 2 view PA, Lat Ordered. EDMS 17:07 Chest, 2 view PA, Lat Ordered. EDMS 17:07 Chest, 2 view PA, Lat Ordered. EDMS 17:07 Chest, 2 view PA, Lat Ordered. EDMS 17:07 Chest, 2 view PA, Lat Ordered. EDMS 17:07 Chest, 2 view PA, Lat Ordered. EDMS 17:07 Chest, 2 view PA, Lat Ordered. EDMS 17:07 Chest, 2 view PA, Lat Ordered. EDMS 17:08 Chest, 2 view PA, Lat Ordered. EDMS 17:08 Chest, 2 view PA, Lat Ordered. EDMS Administered Medications: 12:47 Drug: Albuterol-Ipratropium 1 neb [ipratropium-albuterol 0.5 mg-3 mg(2.5 mg base)/3 mL jh6 nebulization soln (1 neb)] Route: Nebulizer; 12:47 Drug: Solu-MEDROL 125 mg [Solu-Medrol 500 mg intravenous solution (125 mg)] Route: IVP; mlb1 Site: left wrist; 13:10 Drug: Albuterol-Ipratropium 1 neb [ipratropium-albuterol 0.5 mg-3 mg(2.5 mg base)/3 mL jh6 nebulization soln (1 neb)] Route: Nebulizer; 13:37 Drug: Albuterol-Ipratropium 1 neb [ipratropium-albuterol 0.5 mg-3 mg(2.5 mg base)/3 mL jh6 nebulization soln (1 neb)] Route: Nebulizer; Signatures: Dispatcher [employer] Aaliyah Yu MD MD sd1 Betzaida Lopez RN RN mcp Barney, Michael B, RN RN mlb1 Siva Harris Joseph, MAKENNA BARREL RIFLER HOOK Emir Malin 6 The chart was reviewed and I authenticate all verbal orders and agree with the evaluation and treatment provided.Attachments: 16:11 [facility] Payment Agreement zo MIKED
--- NOTE | 2016-12-30 18:16 | EDDOCDS ---
Nurse's Notes [facility] Name: Kasi Oseguera Age: 76 yrs Sex: Male : 1940 Arrival Date: 12/30/2016 Time: 12:18 Bed 2 Private MD: Esteban Willson E. Diagnosis: Pleural effusion, not elsewhere classified Presentation: 12/30 12:20 Presenting complaint: EMS states: SOB since yesterday began during radiation. Adult mlb1 Sepsis Screening: The patient does not have new or worsening altered mentation. Patient has a respiratory rate of greater than or equal to 22 (1 point). Systolic blood pressure is greater than 100. Patient has a qSOFA score of 0- Negative Sepsis Screen. Suicide/Homicide risk assessment- the patient denies having any suicidal and/or homicidal ideations and does not present with any other emotional, behavioral or mental health complaints. 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 Transition of care: patient was not received from another setting of care. Care prior to arrival: Glucose check. 109. 12:20 Acuity: JACKIE Level 2 mlb1 12:20 Method Of Arrival: Ambulance mlb1 Triage Assessment: 12:29 General: Appears distressed, Behavior is anxious, cooperative. Pain: Denies pain. mlb1 Respiratory: Onset: The symptoms/episode began/occurred yesterday, Airway is patent Respiratory effort is labored. Historical: - Allergies: no known allergies; - Home Meds: 1. albuterol sulfate 2.5 mg /3 mL (0.083 %) Nebulizer nebu 3 mL 4 times per day 2. Lasix 20 mg Oral tab 1 tab once daily 3. lisinopril 2.5 mg Oral tab 1 tab once daily 4. atorvastatin 10 mg oral tab 1 tab once daily 5. levothyroxine 125 mcg Oral tab once daily 6. Incruse Ellipta 62.5 mcg/actuation inhalation dsdv 1 puff once daily 7. Ventolin HFA 90 mcg/actuation Nebulizer HFAA 2 puffs every 4 hours as needed 8. sotalol 80 mg Oral tab 1 tab 2 times per day - PMHx: COPD; Hypercholesterolemia; Hypertension; Hypothyroidism; Cancer, Thyroid; Cancer, Lung; - PSHx: Thyroidectomy; Prostatectomy; AICD insertion; - Social history: Smoking status: Patient states former smoker of tobacco. No barriers to communication noted, The patient speaks fluent Yi, Speaks appropriately for age. - Family history: Not pertinent. - : The pt / caregiver states he / she is not on anticoagulants. Home medication list is obtained from the patient, [employer] import data. - Exposure Risk Screening:: None identified. Screenin:42 Screening information is obtained from the patient. Fall risk: No risks identified. mlb1 Assistance ADL's: requires no assistance with activities of daily living. Abuse/DV Screen: The patient / caregiver reports he/she is: not in a situation that causes fear, pain or injury. Nutritional screening: No deficits noted. Advance Directives: There is an active DNR order but there is no copy available at this time. home support is adequate. Assessment: 12:42 General: Appears distressed, Behavior is appropriate for age, cooperative. Pain: Denies mlb1 pain. Cardiovascular: Rhythm is sinus rhythm No ectopy. Respiratory: Airway is patent Respiratory effort is even, labored, Breath sounds are diminished bilaterally. Derm: Skin is pink, warm & dry. normal. 13:30 General: Appears in no apparent distress, to be sleeping. Respiratory: No deficits ms2 noted. Airway is patent Respiratory effort is even, appears sob at rest Respiratory pattern is regular, symmetrical. Derm: Skin is pink, warm & dry. 13:51 General: Appears in no apparent distress, Behavior is anxious, cooperative. Pain: mlb1 Denies pain. Respiratory: Airway is patent Respiratory effort is labored. Derm: No deficits noted. 14:45 General: Appears in no apparent distress, Behavior is appropriate for age, cooperative. mlb1 Pain: Denies pain. Pain: Denies pain. Respiratory: Airway is patent Respiratory effort is even, labored. Derm: No deficits noted. 15:47 General: Appears in no apparent distress, Behavior is appropriate for age, cooperative. mlb1 Pain: Denies pain. Neurological: No deficits noted. Respiratory: Airway is patent Respiratory effort is even, unlabored. Derm: No deficits noted. 16:37 General: Appears in no apparent distress, comfortable, Behavior is appropriate for age, mlb1 cooperative. 17:27 General: Appears in no apparent distress, comfortable, Behavior is appropriate for age, mlb1 cooperative. Pain: Denies pain. Neurological: No deficits noted. Respiratory: Airway is patent Respiratory effort is even, unlabored. 18:08 General: Appears in no apparent distress, Behavior is appropriate for age, cooperative. mlb1 Pain: Denies pain. Neurological: No deficits noted. Respiratory: Airway is patent Breath sounds are diminished bilaterally. Derm: No deficits noted. Vital Signs: 12:24 BP 169 / 78 (auto/); mlb1 12:25 Pulse Ox 93% ; mlb1 12:25 BP 108 / 70; Pulse 86; Resp 20; Temp 97.4(O); Pulse Ox 92% on 3 lpm NC; Pain 0/10; mlb1 12:28 BP 169 / 78; Pulse 86; Resp 28; Temp 98.0(O); Pulse Ox 94% on 3 lpm NC; Weight 71.67 kg mlb1 (R); Height 5 ft. 10 in. (177.80 cm) (R); Pain 0/10; 12:30 BP 147 / 69 (auto/); mlb1 12:31 Pulse 88 MON; Pulse Ox 94% ; mlb1 12:45 BP 111 / 70 (auto/); mlb1 12:46 Pulse 84 MON; Pulse Ox 94% ; mlb1 13:00 BP 119 / 70 (auto/); mlb1 13:01 Pulse 82 MON; Pulse Ox 95% ; mlb1 13:15 BP 121 / 67 (auto/); mlb1 13:16 Pulse 81 MON; Pulse Ox 98% ; mlb1 13:30 BP 131 / 65 (auto/); mlb1 13:31 Pulse 82 MON; Pulse Ox 94% ; mlb1 13:45 BP 142 / 85 (auto/); mlb1 13:46 Pulse 84 MON; Pulse Ox 97% ; mlb1 13:51 BP 142 / 85; Pulse 82; Resp 24; Pulse Ox 93% on 3 lpm NC; Pain 0/10; mlb1 14:00 BP 118 / 71 (auto/); mlb1 14:01 Pulse 85 MON; Pulse Ox 91% ; mlb1 14:15 BP 122 / 69 (auto/); mlb1 14:16 Pulse 83 MON; Pulse Ox 92% ; mlb1 14:30 BP 120 / 69 (auto/); mlb1 14:31 Pulse 85 MON; Pulse Ox 93% ; mlb1 14:45 BP 113 / 63 (auto/); mlb1 14:46 Pulse 85 MON; Pulse Ox 92% ; mlb1 15:00 BP 124 / 75 (auto/); mlb1 15:01 Pulse 89 MON; Pulse Ox 92% ; mlb1 15:15 BP 116 / 65 (auto/); mlb1 15:16 Pulse 84 MON; Pulse Ox 92% ; mlb1 15:30 BP 86 / 58 (auto/); mlb1 15:42 Pulse Ox 86% ; mlb1 15:46 BP 115 / 77 (auto/); mlb1 15:47 Pulse 88 MON; Pulse Ox 91% ; mlb1 16:00 BP 109 / 73 (auto/); mlb1 16:00 Pulse 86 MON; Pulse Ox 92% ; mlb1 16:15 BP 119 / 59 (auto/); mlb1 16:15 Pulse 80 MON; Pulse Ox 93% ; mlb1 16:30 BP 124 / 71 (auto/); mlb1 16:30 Pulse 81 MON; Pulse Ox 92% ; mlb1 16:45 BP 115 / 75 (auto/); mlb1 16:45 Pulse 88 MON; Pulse Ox 92% ; mlb1 17:00 BP 116 / 67 (auto/); mlb1 17:00 Pulse 88 MON; Pulse Ox 90% ; mlb1 17:15 BP 121 / 78 (auto/); mlb1 17:15 Pulse 89 MON; Pulse Ox 91% ; mlb1 17:24 BP 108 / 70 (auto/); mlb1 17:24 Pulse 87 MON; Pulse Ox 92% ; mlb1 17:30 BP 126 / 72 (auto/); mlb1 17:30 Pulse 89 MON; Pulse Ox 92% ; mlb1 17:45 BP 119 / 56 (auto/); mlb1 17:45 Pulse 85 MON; Pulse Ox 91% ; mlb1 18:00 BP 91 / 53 (auto/); mlb1 18:00 Pulse 86 MON; Pulse Ox 92% ; mlb1 18:07 BP 99 / 63; Pulse 86; Resp 20; Temp 97.6(O); Pulse Ox 93% on 3 lpm NC; Pain 0/10; mlb1 12:28 Body Mass Index 22.67 (71.67 kg, 177.80 cm) b1 Vitals: 12:28 Log In Time N/A - ambulance arrival. [facility] ED Course: 12:19 Patient visited by Waldo Rizvi PCA. jrd 12:19 Mariann Troncoso RN is Primary Nurse. jrd 12:19 Esteban Willson is Private Physician. jrd 12:19 Patient visited by Emanuel Ariza, RN. mlb1 12:19 Patient moved to Waiting jrd 12:19 Patient moved to 2 jrd 12:24 Aaliyah Vang MD is Attending Physician. sd1 12:24 Triage Initiated mlb1 12:26 Patient visited by Aaliyah Vang MD. sd1 12:31 EKG done. (by ED staff). Reviewed by Aaliyah Vang MD. nb2 12:35 Patient visited by Darcy Washburn. nb2 12:35 Patient visited by Darcy Washburn. nb2 12:35 Placed in gown. Bed in low position. Call light in reach. Side rails up X2. Cardiac nb2 monitor on. Pulse ox on. NIBP on. 12:35 -Blood Culture Sent. ck1 12:35 B-Type Natiuretic Peptide Sent. ck1 12:35 Basic Metabolic Profile Sent. ck1 12:35 CBC with Diff Sent. ck1 12:35 Cardiac Injury Profile Sent. ck1 12:35 Troponin Sent. ck1 12:35 Maintain field IV. Dressing intact. Good blood return noted. Site clean & dry. Gauge & ck1 site: 18 gauge in right wrist. 12:41 BLOOD CULTURES Sent. mlb1 12:42 No procedures done that require assistance. mlb1 12:43 Patient visited by Emanuel Ariza, RN. mlb1 12:43 The patient / caregiver is instructed regarding the plan of care and ED course. mlb1 12:47 -Arterial Blood Gas Sent. jh6 13:30 IV is intact, is free of redness or swelling. ms2 13:42 Patient visited by Yuri Donohue RN. ms2 13:44 monitor and storage bin tender on. Pulse ox on. NIBP on. ms2 13:59 Chest, 1 View Returned. EDMS 14:42 Patient visited by Emanuel Ariza, RN. mlb1 15:47 Patient visited by Emanuel Ariza, RN. mlb1 16:11 [facility] Payment Agreement was scanned into Need and attached to record. zo 16:31 CT Chest Angio R/O PE Returned. EDMS 16:57 Loy Gomez is Hospitalizing Provider. sd1 17:29 Patient visited by Emanuel Ariza, RN. mlb1 18:10 Patient visited by Emanuel Ariza RN. mlb1 Administered Medications: 12:47 Drug: Albuterol-Ipratropium 1 neb [ipratropium-albuterol 0.5 mg-3 mg(2.5 mg base)/3 mL jh6 nebulization soln (1 neb)] Route: Nebulizer; 12:47 Drug: Solu-MEDROL 125 mg [Solu-Medrol 500 mg intravenous solution (125 mg)] Route: IVP; mlb1 Site: left wrist; 13:10 Drug: Albuterol-Ipratropium 1 neb [ipratropium-albuterol 0.5 mg-3 mg(2.5 mg base)/3 mL jh6 nebulization soln (1 neb)] Route: Nebulizer; 13:37 Drug: Albuterol-Ipratropium 1 neb [ipratropium-albuterol 0.5 mg-3 mg(2.5 mg base)/3 mL jh6 nebulization soln (1 neb)] Route: Nebulizer; RT: 12:47 ABG's drawn from left radial artery pressure held for 5 minutes no bleeding noted jh6 pressure bandage applied specimen sent pt. tolerated well. Initial Med Neb Given as ordered Patient was instructed and evaluated on procedure Patient tolerated procedure well without adverse effect. Respiratory: Airway is patent Respiratory effort is even, labored, Respiratory pattern is regular tachypnea Breath sounds are coarse in right upper lobe, left upper lobe, right middle lobe, left lower lobe and right lower lobe Breath sounds with rhonchi in right upper lobe, left upper lobe, right middle lobe, left lower lobe and right lower lobe. 12:55 Respiratory: Airway is patent Respiratory effort is even, unlabored, Respiratory jh6 pattern is regular symmetrical, Breath sounds are clear in right upper lobe, right middle lobe, left lower lobe and right lower lobe Breath sounds with rhonchi in left upper lobe Breath sounds are diminished in right upper lobe, left upper lobe, right middle lobe, left lower lobe and right lower lobe. 13:10 Subsequent Med Neb Given as ordered Patient was reinforced on procedure Patient jh6 tolerated procedure well without adverse effect. Respiratory: Airway is patent Respiratory effort is even, unlabored, Respiratory pattern is regular symmetrical, Breath sounds are coarse in left posterior upper lobe, right posterior upper lobe, left posterior lower lobe, right posterior middle lobe and right posterior lower lobe Breath sounds are diminished in left posterior upper lobe, right posterior upper lobe, left posterior lower lobe, right posterior middle lobe and right posterior lower lobe. 13:17 Respiratory: Airway is patent Respiratory effort is even, unlabored, Respiratory jh6 pattern is regular symmetrical, Breath sounds are clear in left posterior upper lobe and right posterior upper lobe Breath sounds are coarse in left posterior lower lobe, right posterior middle lobe and right posterior lower lobe Breath sounds are diminished in left posterior lower lobe and right posterior lower lobe. 13:37 Subsequent Med Neb Given as ordered Patient was reinforced on procedure Patient jh6 tolerated procedure well without adverse effect. Respiratory: Airway is patent Respiratory effort is even, unlabored, Respiratory pattern is regular symmetrical, Breath sounds are coarse in left posterior lower lobe, right posterior middle lobe and right posterior lower lobe Breath sounds are diminished in left posterior upper lobe, right posterior upper lobe, left posterior lower lobe, right posterior middle lobe and right posterior lower lobe. 13:44 Respiratory: Breath sounds are clear in left posterior upper lobe, right posterior jh6 upper lobe and right posterior middle lobe Breath sounds are coarse in left posterior lower lobe and right posterior lower lobe Breath sounds with crackles in left posterior lower lobe and right posterior lower lobe Breath sounds are diminished in left posterior upper lobe, right posterior upper lobe, left posterior lower lobe, right posterior middle lobe and right posterior lower lobe. Order Results: Lab Order: -Arterial Blood Gas; SPEC'M 12/30/16 12:38 Test: ABG pH (ARTERIAL); Value: 7.416; Range: 7.350-7.450; Units: UNITS; Status: F Test: ABG PARTIAL PRESSURE CO2; Value: 42.9; Range: 35.0-45.0; Units: mmHg; Status: F Test: ABG PARTIAL PRESSURE O2; Value: 70.9; Range: 75.0-100.0; Abnormal: Below low normal; Units: mmHg; Status: F Test: ABG TOTAL CO2; Value: 28.3; Range: 23.0-31.0; Units: MEQ/L; Status: F Test: ABG HCO3; Value: 27.0; Range: 22.0-26.0; Abnormal: Above high normal; Units: MEQ/L; Status: F Test: ABG BASE EXCESS; Value: 2.0; Range: -2.0-2.0; Status: F Test: ABG STANDARD HCO3; Value: 26.2; Range: 22.0-26.0; Abnormal: Above high normal; Units: MEQ/L; Status: F Test: ABG O2 SATURATION; Value: 94.8; Range: 95.0-99.0; Abnormal: Below low normal; Units: %; Status: F Test: ABG DEVICE; Value: NASAL CHRISTELLE; Status: F Lab Order: B-Type Natiuretic Peptide; SPEC'12/30/16 12:32 Test: BRAIN NATRIURETIC PEPTIDE; Value: 288; Range: <100; Abnormal: Above high normal; Units: PG/ML; Status: F Lab Order: Basic Metabolic Profile; SPEC'12/30/16 12:32 Test: GLUCOSE, FASTING; Value: 86; Range: 83-110; Units: MG/DL; Status: F Test: BLOOD UREA NITROGEN; Value: 28; Range: 7-18; Abnormal: Above high normal; Units: MG/DL; Status: F Test: CREATININE FOR GFR; Value: 1.02; Range: 0.70-1.30; Units: MG/DL; Status: F Test: GLOMERULAR FILTRATION RATE; Value: > 60.0; Range: >42; Status: F Test: SODIUM LEVEL; Value: 139; Range: 136-145; Units: MEQ/L; Status: F Test: POTASSIUM SERUM; Value: 4.0; Range: 3.5-5.1; Units: MEQ/L; Status: F Test: CHLORIDE LEVEL; Value: 99; Range: 98-107; Units: MEQ/L; Status: F Test: CARBON DIOXIDE LEVEL; Value: 30; Range: 21-32; Units: MEQ/L; Status: F Test: ANION GAP; Value: 10; Range: 8-16; Units: MEQ/L; Status: F Test: CALCIUM LEVEL; Value: 9.3; Range: 8.8-10.2; Units: MG/DL; Status: F Test Note: ; Units are mL/min/1.73 m2 Chronic Kidney Disease Staging per NKF: Stage I & II GFR >=60 Normal to Mildly Decreased Stage III GFR 30-59 Moderately Decreased Stage IV GFR 15-29 Severely Decreased Stage V GFR <15 Very Little GFR Left ESRD GFR <15 on LAYER OUT Lab Order: CBC with Diff; SPEC'M 12/30/16 12:33 Test: WHITE BLOOD COUNT; Value: 16.4; Range: 4.0-10.0; Abnormal: Above high normal; Units: K/mm3; Status: F Test: RED BLOOD COUNT; Value: 4.97; Range: 4.30-6.10; Units: M/mm3; Status: F Test: HEMOGLOBIN; Value: 16.6; Range: 14.0-18.0; Units: g/dl; Status: F Test: HEMATOCRIT; Value: 49.9; Range: 42.0-52.0; Units: %; Status: F Test: MEAN CORPUSCULAR VOLUME; Value: 100.3; Range: 80.0-96.0; Abnormal: Above high normal; Units: fl; Status: F Test: MEAN CORPUSCULAR HEMOGLOBIN; Value: 33.3; Range: 27.0-33.0; Abnormal: Above high normal; Units: pg; Status: F Test: MEAN CORPUSCULAR HGB CONC; Value: 33.2; Range: 32.0-36.5; Units: g/dl; Status: F Test: RED CELL DISTRIBUTION WIDTH; Value: 12.8; Range: 11.5-14.5; Units: %; Status: F Test: PLATELET COUNT, AUTOMATED; Value: 230; Range: 150-450; Units: k/mm3; Status: F Test: NEUTROPHILS %; Value: 85.3; Range: 36.0-66.0; Abnormal: Above high normal; Units: %; Status: F Test: LYMPH %; Value: 5.4; Range: 24.0-44.0; Abnormal: Below low normal; Units: %; Status: F Test: MONO %; Value: 5.4; Range: 0.0-5.0; Abnormal: Above high normal; Units: %; Status: F Test: EOS %; Value: 2.8; Range: 0.0-3.0; Units: %; Status: F Test: BASO %; Value: 0.2; Range: 0.0-1.0; Units: %; Status: F Test: LARGE UNSTAINED CELL %; Value: 0.8; Range: 0.0-4.0; Units: %; Status: F Test: NEUTROPHILS #; Value: 14.0; Range: 1.8-7.7; Abnormal: Above high normal; Units: K/mm3; Status: F Test: LYMPH #; Value: 1.0; Range: 1.5-4.5; Abnormal: Below low normal; Units: K/mm3; Status: F Test: MONO #; Value: 0.9; Range: 0.0-0.8; Abnormal: Above high normal; Units: K/mm3; Status: F Test: EOS #; Value: 0.5; Range: 0.0-0.50; Units: K/mm3; Status: F Test: BASO #; Value: 0.0; Range: 0.0-0.2; Units: K/mm3; Status: F Test: LARGE UNSTAINED CELL #; Value: 0.1; Range: 0.0-0.4; Units: K/mm3; Status: F Lab Order: Cardiac Injury Profile; [facility]' 12/30/16 12:32 Test: CPK CREATINE PHOSPHOKINASE; Value: 30; Range: 39-308; Abnormal: Below low normal; Units: U/L; Status: F Test: CK-MB VALUE MASS; Value: 2.2; Range: 0.0-3.6; Units: NG/ML; Status: F Test: MB/CK RELATIVE INDEX; Value: 7.33; Range: < OR =4; Abnormal: Above high normal; Status: F Test Note: ; DIAGNOSIS CRITERIA MMB ng/ml Relative Index (RI) NON-AMI < or = 5 N/A [place] > 5 < or = 4 AMI > 5 > 4 Lab Order: Troponin; SPEC' 12/30/16 12:32 Test: TROPONIN I; Value: < 0.02; Range: < 0.10; Units: NG/ML; Status: F Test Note: ; Troponin I Reference Interval for [employer] LOCI: 99th Percentile= 0.00-0.045 ng/ml Risk Stratification: <= 0.10 ng/ml Decreased Risk for Adverse Clinical Events. 0.10-1.50 ng/ml Increased Risk for Adverse Clinical Events. Evaluation of additional criterion and/or repeat testing in 2-6 hours is suggested to rule out myocardial damage. >= 1.50 ng/ml Indicative of Myocardial Injury. Radiology Order: Chest, 1 View Test: Chest, 1 View REASON FOR EXAMINATION: Shortness of Breath; Portable chest, the patient semi upright, single AP view:; ; Comparisons 12/24/2016. There is a comparison chest CT dated 12/15/2016.; ; The right pleural effusion has significantly increased from 12/24/2016.; ; There is diffuse interstitial coarsening throughout the right lung. There is; also increased from 12/24/2016.; ; The left lung remains clear. Cardiac size is normal. Pacemaker is again noted,; unchanged.; ; Impression: Increasing right pleural effusion. Increasing right lung; interstitial coarsening.; ; ; Signed by; Kyle Green MD 12/30/2016 01:22 P; Radiology Order: CT Chest Angio R/O PE Test: CT Chest Angio R/O PE REASON FOR EXAMINATION: chest pain/ sob; Clinical: Chest pain and shortness of breath.; ; Technique: Axial contrast enhanced images from the thoracic inlet to the upper; abdomen using 100 ml Isovue 370 intravenous contrast material with coronal and; sagittal re-formations.; ; Findings:; Satisfactory enhancement of the pulmonary vasculature is achieved and no filling; defects are identified to suggest pulmonary embolus.; ; Chronic emphysematous changes and bronchiectasis with superimposed hilar and; mediastinal adenopathy, scattered bilateral metastatic foci, presumed; lymphangitic carcinomatosis and moderate to large partially loculated right; pleural effusion are essentially unchanged from prior examination dated; 12/15/2016. Mediastinum again demonstrates atherosclerotic changes to the; thoracic aorta and coronary arteries without pericardial effusion or; cardiomegaly.; ; ; Impression:; 1. No evidence for pulmonary embolus.; 2. Continued evidence for neoplastic changes including adenopathy, scattered; bilateral metastatic foci, lymphangitic carcinomatosis, and partially loculated; [id number] right pleural effusion. Findings are relatively stable; compared to 12/15/2016.; ; ; Signed by; Prashant Decker MD 12/30/2016 03:59 P; Outcome: 16:57 Decision to Hospitalize by Provider. sd1 17:29 CT Study completed. mlb1 18:09 Discharge Assessment: patient administered narcotics - no. The following High Risk mlb1 Discharge criteria are identified: None. Admitted to PCU accompanied by nurse, accompanied by tech, with oxygen, on monitor, with chart. Condition: stable. Property :Personal belongings accompany Pt. 18:15 Patient left the ED. [facility] Signatures: Dispatcher [employer] EDAaliyah Buckner MD MD sd1 Yuri DonohueRN RN ms2 Betzaida Lopez RN RN Emanuel Dumont RN RN mlb1 Rosalina Headley RN RN ck1 Siva Harris Jacob 6 Waldo Rizvi PCA PCA jrd Baart, Nicole nb2 Corrections: (The following items were deleted from the chart) 13:51 12:42 Respiratory: Airway is patent Respiratory effort is even, unlabored, Breath mlb1 sounds are diminished bilaterally. mlb1 MTDD
[2016-12-30] MEDS ORDERED: MIDAZOLAM INJ 2 MG/2 ML VIAL (J2250) As Ordered ONE (18:23)
[2016-12-30] MEDS ORDERED: FLUMAZENIL 0.5 MG/5 ML VIAL As Ordered ONE (18:23)
[2016-12-30] MEDS ORDERED: LIDOCAINE 1% MDV 20ML VIAL As Ordered ONE (18:24)
[2016-12-30] MEDS: D5W/0.9% SODIUM CHLORIDE 1,000 ML IV SCH (18:30)
[2016-12-30] MEDS ORDERED: MIDAZOLAM INJ 2 MG/2 ML VIAL (J2250) IV STA (19:06)
[2016-12-30] MEDS ORDERED: LIDOCAINE 1% MDV 20ML VIAL SC ONE (19:15)
[2016-12-30] MEDS ORDERED: FLUMAZENIL 0.5 MG/5 ML VIAL IV STA (19:19)
[2016-12-30 20:00] LABS: TOTAL PROTEIN, BODY FLUID 2.1 G/DL (NOT ESTABLISHED)
--- NOTE | 2016-12-30 20:01 | HPE ---
DATE OF ADMISSION: 12/30/2016 The patient was seen at the request of the emergency room for increasing shortness of breath over the last 24 hours. HISTORY OF THE PRESENT ILLNESS: The patient is a 76-year-old white male who was discharged within the week after having accumulated a pleural effusion which was drained with a chest tube of 1200 mL. Over the last 24 hours, he has been complaining of more shortness of breath starting last night. He has a previous history of thyroid cancer where he has had both lobes of his thyroid removed. 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 He has undergone radiation therapy without much regression; however, it has not progressed. It did progress to a very large lemon-sized lesion within a week after he discovered it. 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 He has had a cough over the last few hours. He has been bringing up a white-leach phlegm. He has had no fevers, chills or sweats, and he has no dysphagia. He has no chest pain or chest discomfort. PAST MEDICAL HISTORY: Chronic obstructive pulmonary disease (COPD). Hypertension. 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 Hyperlipidemia. Congestive heart failure (CHF). Status post hepatitis. PAST SURGICAL HISTORY: Above complete thyroidectomy. Automatic implantable cardioverter defibrillator (AICD). HABITS: Smoked up to three packs per day but quit in 1997. Had a problem drinking about 10 years ago but now completely abstains from alcohol. 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 TRAVEL HISTORY: He has been to the [facility]. He was in the and spent time in [place] and [place]. EXPOSURES: No dogs, cats or birds at home. PAST HOSPITALIZATION: In 1998, he underwent a tracheotomy when he had hepatitis which was accompanied by respiratory failure. At that time, he decided to stop smoking. REVIEW OF SYSTEMS: CONSTITUTIONAL: Without fever, chills, sweats or night sweats. EYES: Without transient monocular blindness, diplopia or prior jaundice. NOSE: Without epistaxis. MOUTH: Has false teeth. PULMONARY: See history of the present illness. CARDIAC: Carries a diagnosis of congestive heart failure with an AICD implanted. He has never had an myocardial infarction ([place]) that he knows of. He does not complain of peripheral edema or intermittent claudication. GASTROINTESTINAL: Without nausea, vomiting, diarrhea, constipation, melena, hematochezia or hematemesis. Without abdominal pain. GENITOURINARY: Without hematuria, dysuria or prior history of kidney stones. ENDOCRINE: Without diabetes, hypothyroidism. NEUROLOGIC: Without paresthesias, paralysis or seizures. LYMPHATICS: Without lumps and bumps in his left neck or his axilla but the large lemon-sized mass in his right supraclavicular fossa. PSYCHIATRIC: Without pathological anxieties, depressions or psychoses. INVESTIGATIONS: His white count today is 16.4, up from 10.7 when he was discharged on 12/24. Hemoglobin and hematocrit are 16.6 and 49.9. Platelet count is 230 and differential shows 85% neutrophils, 5% lymphocytes, 5% monocytes. There are no immature forms. No toxic granulations. Chemistries today showed normal electrolytes with a BUN and creatinine of 28 and 1.02, which is improved from his discharge BUN and creatinine of 35 and 1.37. Glucose is 86 with a calcium of 9.3. His chest x-ray done portably today shows a right side pleural effusion with underlying infiltration and/or compression in the right lower hemithorax. CT scan was undertaken under angiographic protocol. It does not show a pulmonary embolism. He has a moderate maybe loculated pleural effusion inferiorly in the right hemithorax. He has numerous metastatic nodules throughout the lungs, too numerous to count. The lung infiltrative pattern is probably compressive, along with on top of all the pulmonary infiltrates and nodules from carcinomatosis. IMPRESSION: 1. Anaplastic thyroid carcinomatosis. 2. Recurrent pleural effusion. 3. Shortness of breath secondary to the above. 4. Hypothyroidism from prior thyroidectomy. 5. History of renal failure, seemingly resolved at this point in time. 6. Probable dehydration with increased hemoglobin and hematocrit. 7. Congestive heart failure. 8. Status post automatic implantable cardioverter defibrillator insertion. 9. Chronic obstructive pulmonary disease. 10. Hypertension. 11. Hyperlipidemia. PLAN AND DISCUSSION: I will place a PleurX catheter in him. He has very advanced anaplastic thyroid carcinoma. Radiation therapy to the supraclavicular mass on the right side does not seem to be shrinking it. He really is a hospice care patient. After placing a PleurX catheter, I will try very hard to get him out of the hospital tomorrow and back home. These are also his wishes.
[2016-12-30 20:13] LABS: RBC PLEURAL FLUID < 10 (<10mm3 cells/uL); TNC PLEURAL FLUID 5053 cells/uL (0-20)
[2016-12-30 20:14] LABS: BF DIFF IF INDICATED? YES (NO)
[2016-12-30] MEDS: KETOROLAC 30 MG/ML VIAL (J1885) IV SCH ×2 (20:45→23:40)
[2016-12-30] MEDS: SOTALOL HCL 80 MG TAB PO SCH (21:00)
[2016-12-30 21:07] LABS: LDH, BODY FLUID 5084 U/L (NOT ESTABLISHED)
[2016-12-30 21:35] LABS: CC BF DIFF EXAM CYTOCENTRIFUGE
[2016-12-30] MEDS: CEFDINIR 300 MG CAP (OMNICEF) PO SCH (22:57)
[2016-12-30] MEDS: ATORVASTATIN 10 MG TAB PO SCH (22:57)
[2016-12-30] MEDS: MULTIVITAMINS/MINERALS THERAP 1 TAB PO SCH (22:58)
[2016-12-30] MEDS: DOCUSATE SODIUM 100 MG CAP PO SCH (22:58)
[2016-12-30] MEDS: HEPARIN SOD (PORCINE) 5000 UNITS/ML VIAL SC SCH (22:58)
[2016-12-31] VITALS (8 sets, daily range): BP systolic 99–129; BP diastolic 61–86
[2016-12-31] MEDS: D5W/0.9% SODIUM CHLORIDE 1,000 ML IV SCH ×2 (05:44→15:00)
[2016-12-31] MEDS: LEVOTHYROXINE 0.125 MG TAB (125 MCG) PO SCH (05:44)
[2016-12-31] MEDS: KETOROLAC 30 MG/ML VIAL (J1885) IV SCH ×3 (05:45→17:40)
--- NOTE | 2016-12-31 07:42 | REP ---
Clinical: Chest tube placement. Comparison: 12/30/2016. Findings: Small residual right pleural effusion is significantly improved from prior examination. Diffuse bilateral pleuroparenchymal changes are again noted and otherwise similar to prior examination. No obvious pneumothorax. Mediastinum and cardiac silhouette stable. Impression: Decreased, significantly improved right pleural effusion. Diffuse bilateral opacities similar to prior examination. Signed by Prashant Decker MD 12/31/2016 07:34 A
--- NOTE | 2016-12-31 08:33 | ECGEPIP ---
Stationary ECG Study [facility] - ED Test Date: 2016-12-30 Pat Name: CARMINA MATIAS Department: Room: - Gender: M [employer] Worker: jake : 1940 Requested By: Aaliyah Vang Order Number: [id number] Reading MD: Aaliyah Vang Measurements Intervals [place] Rate: 89 P: 42 WI: 127 QRS: 246 QRSD: 147 T: 66 QT: 434 QTc: 530 Interpretive Statements ELECTRONIC VENTRICULAR PACEMAKER ABNORMAL RHYTHM ECG INCREASED RATE 12/15/16 SINUS RHYTHM Electronically Signed On 12-31-2016 8:33:14 EST by Aaliyah Vang
--- NOTE | 2016-12-31 08:53 | REP ---
Clinical: Pleural effusion followup. Comparison: 12/30/2016. Technique: PA and lateral. Findings: Diffuse bilateral pleuroparenchymal changes are similar to prior examination. Small residual right pleural effusion with fluid extending into the major fissure is identified. No new acute process appreciated. Impression: Diffuse bilateral pleuroparenchymal changes (right greater than left) similar to prior examination. Signed by Prashant Decker MD 12/31/2016 08:45 A
[2016-12-31] MEDS: FUROSEMIDE 20 MG TAB PO SCH (09:32)
[2016-12-31] MEDS: MULTIVITAMINS/MINERALS THERAP 1 TAB PO SCH ×2 (09:32→21:30)
[2016-12-31] MEDS: DOCUSATE SODIUM 100 MG CAP PO SCH ×2 (09:32→21:30)
[2016-12-31] MEDS: PANTOPRAZOLE 40MG TAB (PROTONIX) PO SCH (09:32)
[2016-12-31] MEDS: CEFDINIR 300 MG CAP (OMNICEF) PO SCH ×2 (09:32→21:31)
[2016-12-31] MEDS: SOTALOL HCL 80 MG TAB PO SCH ×2 (09:32→21:31)
[2016-12-31] MEDS: MOM 30ML SUSPENSION UDC PO SCH (09:33)
[2016-12-31] MEDS: HEPARIN SOD (PORCINE) 5000 UNITS/ML VIAL SC SCH ×2 (09:33→21:31)
[2016-12-31] MEDS ORDERED: LISINOPRIL *2.5 MG* TAB PO SCH (12:00)
--- NOTE | 2016-12-31 17:23 | DSES ---
DATE OF ADMISSION: 12/30/2016 DATE OF DISCHARGE: 01/01/2017 DISCHARGE DIAGNOSES: 1. Widely metastatic anaplastic thyroid carcinoma. 2. Pleural effusion. 3. Shortness of breath secondary to above. 4. Hypothyroidism secondary to prior thyroidectomy. 5. History of renal failure, resolved at this point in time. 6. Probable dehydration with increased hemoglobin and hematocrit. 7. Congestive heart failure (CHF). 8. Status post automatic implantable cardioverter defibrillator insertion. 9. Chronic obstructive pulmonary disease. 10. Hypertension. 11. Hyperlipidemia. HOSPITAL COURSE: The patient is a 76-year-old white male who was discharged last week after having accumulated a pleural effusion, which was drained with a chest tube of 1200 mL. He has widely disseminated anaplastic thyroid carcinoma, including multiple lung lesions too numerous too count. He presented to the emergency room with increasing shortness of breath and was found to have return of his pleural effusion. The patient was, therefore, admitted to the hospital, where a PleurX catheter was placed, with drainage of 650 mL of hermes fluid. This was sent for requisite hematology, cytology, chemistries, and bacteriology. He had a benign hospital course. On the day of discharge, I discussed Hospice care, and he was quite amenable, and we have arranged to have Hospice see him at home. He will need a drainage of the pleurex catheter approximately every 3 days. He will return to see me in 1 week in post-hospitalization followup. He was thought to be dehydrated with an increased hemoglobin and hematocrit of 16.6 and 49.9. He was given extra fluid overnight. On the morning of admission, he was feeling well and was eating a regular meal. EDMUND
[2016-12-31] MEDS: ATORVASTATIN 10 MG TAB PO SCH (21:30)
[2017-01-01] MEDS: KETOROLAC 30 MG/ML VIAL (J1885) IV SCH ×2 (00:39→06:12)
[2017-01-01 04:00] VITALS: BP 124/78
[2017-01-01] MEDS: LEVOTHYROXINE 0.125 MG TAB (125 MCG) PO SCH (06:12)
[2017-01-01 08:08] VITALS: BP 124/78
[2017-01-01] MEDS: SOTALOL HCL 80 MG TAB PO SCH (08:08)
[2017-01-01] MEDS: MULTIVITAMINS/MINERALS THERAP 1 TAB PO SCH (08:08)
[2017-01-01] MEDS: DOCUSATE SODIUM 100 MG CAP PO SCH (08:08)
[2017-01-01] MEDS: MOM 30ML SUSPENSION UDC PO SCH (08:08)
[2017-01-01] MEDS: CEFDINIR 300 MG CAP (OMNICEF) PO SCH (08:08)
[2017-01-01] MEDS: PANTOPRAZOLE 40MG TAB (PROTONIX) PO SCH (08:08)
[2017-01-01] MEDS: FUROSEMIDE 20 MG TAB PO SCH (08:08)
[2017-01-01] MEDS: HEPARIN SOD (PORCINE) 5000 UNITS/ML VIAL SC SCH (08:09)
--- NOTE | 2017-01-01 09:00 | REP ---
Clinical: Follow up pleural effusion. Technique: PA and lateral. Comparison: Multiple examinations dating through 12/17/2016. Findings: Right basilar pleuroparenchymal changes with blunting of the costophrenic angle remains essentially unchanged through 12/18/2016 and may represent small residual pleural effusion and pleuroparenchymal changes. Chronic pulmonary parenchymal changes are appreciated with superimposed scattered infiltrates which remain relatively unchanged compared to 12/18/2016. No new acute process identified. Mediastinum and cardiac silhouette stable. Impression: Pleuroparenchymal changes including small residual right pleural effusion/pleural reaction remain relatively unchanged compared to 12/18/2016. Signed by Prashant Decker MD 01/01/2017 08:51 A
--- NOTE | 2017-01-01 19:16 | EDDOCDS ---
Physician Documentation [facility] Name: Kasi Oseguera Age: 76 yrs Sex: Male : 1940 Arrival Date: 12/30/2016 Time: 12:18 Bed 2 Private MD: Esteban Willson E. Disposition: 12/30/16 16:57 Hospitalization ordered by Loy Gomez for Inpatient Admission. Preliminary diagnosis is Pleural effusion, not elsewhere classified. - Bed requested for RUSTU. - Status is Inpatient Admission. mcp - Condition is Stable. - Problem is an acute exacerbation. - Symptoms are unchanged. Historical: - Allergies: no known allergies; - Home Meds: 1. albuterol sulfate 2.5 mg /3 mL (0.083 %) Nebulizer nebu 3 mL 4 times per day 2. Lasix 20 mg Oral tab 1 tab once daily 3. lisinopril 2.5 mg Oral tab 1 tab once daily 4. atorvastatin 10 mg oral tab 1 tab once daily 5. levothyroxine 125 mcg Oral tab once daily 6. Incruse Ellipta 62.5 mcg/actuation inhalation dsdv 1 puff once daily 7. Ventolin HFA 90 mcg/actuation Nebulizer HFAA 2 puffs every 4 hours as needed 8. sotalol 80 mg Oral tab 1 tab 2 times per day - PMHx: COPD; Hypercholesterolemia; Hypertension; Hypothyroidism; Cancer, Thyroid; Cancer, Lung; - PSHx: Thyroidectomy; Prostatectomy; AICD insertion; - Social history: Smoking status: Patient states former smoker of tobacco. No barriers to communication noted, The patient speaks fluent [place], Speaks appropriately for age. - Family history: Not pertinent. - : The pt / caregiver states he / she is not on anticoagulants. Home medication list is obtained from the patient, Epuls import data. - Exposure Risk Screening:: None identified. Vital Signs: 12/30 12:24 BP 169 / 78 (auto/); mlb1 12:25 Pulse Ox 93% ; mlb1 12:25 BP 108 / 70; Pulse 86; Resp 20; Temp 97.4(O); Pulse Ox 92% on 3 lpm NC; Pain 0/10; mlb1 12:28 BP 169 / 78; Pulse 86; Resp 28; Temp 98.0(O); Pulse Ox 94% on 3 lpm NC; Weight 71.67 kg mlb1 / 158.01 lbs (R); Height 5 ft. 10 in. (177.80 cm) (R); Pain 0/10; 12:30 BP 147 / 69 (auto/); mlb1 12:31 Pulse 88 MON; Pulse Ox 94% ; mlb1 12:45 BP 111 / 70 (auto/); mlb1 12:46 Pulse 84 MON; Pulse Ox 94% ; mlb1 13:00 BP 119 / 70 (auto/); mlb1 13:01 Pulse 82 MON; Pulse Ox 95% ; mlb1 13:15 BP 121 / 67 (auto/); mlb1 13:16 Pulse 81 MON; Pulse Ox 98% ; mlb1 13:30 BP 131 / 65 (auto/); mlb1 13:31 Pulse 82 MON; Pulse Ox 94% ; mlb1 13:45 BP 142 / 85 (auto/); mlb1 13:46 Pulse 84 MON; Pulse Ox 97% ; mlb1 13:51 BP 142 / 85; Pulse 82; Resp 24; Pulse Ox 93% on 3 lpm NC; Pain 0/10; mlb1 14:00 BP 118 / 71 (auto/); mlb1 14:01 Pulse 85 MON; Pulse Ox 91% ; mlb1 14:15 BP 122 / 69 (auto/); mlb1 14:16 Pulse 83 MON; Pulse Ox 92% ; mlb1 14:30 BP 120 / 69 (auto/); mlb1 14:31 Pulse 85 MON; Pulse Ox 93% ; mlb1 14:45 BP 113 / 63 (auto/); mlb1 14:46 Pulse 85 MON; Pulse Ox 92% ; mlb1 15:00 BP 124 / 75 (auto/); mlb1 15:01 Pulse 89 MON; Pulse Ox 92% ; mlb1 15:15 BP 116 / 65 (auto/); mlb1 15:16 Pulse 84 MON; Pulse Ox 92% ; mlb1 15:30 BP 86 / 58 (auto/); mlb1 15:42 Pulse Ox 86% ; mlb1 15:46 BP 115 / 77 (auto/); mlb1 15:47 Pulse 88 MON; Pulse Ox 91% ; mlb1 16:00 BP 109 / 73 (auto/); mlb1 16:00 Pulse 86 MON; Pulse Ox 92% ; mlb1 16:15 BP 119 / 59 (auto/); mlb1 16:15 Pulse 80 MON; Pulse Ox 93% ; mlb1 16:30 BP 124 / 71 (auto/); mlb1 16:30 Pulse 81 MON; Pulse Ox 92% ; mlb1 16:45 BP 115 / 75 (auto/); mlb1 16:45 Pulse 88 MON; Pulse Ox 92% ; mlb1 17:00 BP 116 / 67 (auto/); mlb1 17:00 Pulse 88 MON; Pulse Ox 90% ; mlb1 17:15 BP 121 / 78 (auto/); mlb1 17:15 Pulse 89 MON; Pulse Ox 91% ; mlb1 17:24 BP 108 / 70 (auto/); mlb1 17:24 Pulse 87 MON; Pulse Ox 92% ; mlb1 17:30 BP 126 / 72 (auto/); mlb1 17:30 Pulse 89 MON; Pulse Ox 92% ; mlb1 17:45 BP 119 / 56 (auto/); mlb1 17:45 Pulse 85 MON; Pulse Ox 91% ; mlb1 18:00 BP 91 / 53 (auto/); mlb1 18:00 Pulse 86 MON; Pulse Ox 92% ; mlb1 18:07 BP 99 / 63; Pulse 86; Resp 20; Temp 97.6(O); Pulse Ox 93% on 3 lpm NC; Pain 0/10; mlb1 12:28 Body Mass Index 22.67 (71.67 kg, 177.80 cm) mlb1 MDM: 12:24 -Blood Culture (Adults Only), peripheral from different site, or from device/port/PICC sd1 etc. if present ordered. 12:24 Call Respiratory ordered. sd1 12:24 Slack Cooper/Pulse Ox/q 15 min VS ordered. sd1 12:24 IV Saline Lock ordered. sd1 12:24 Oxygen at 4L/Min NC or Home dosage ordered. sd1 12:24 Rhythm Strip to chart ordered. sd1 12:25 Albuterol-Ipratropium 1 neb Nebulizer every 20 minutes x3 ordered. sd1 12:25 -Arterial Blood Gas Ordered. EDMS 12:25 -Blood Culture Ordered. EDMS 12:25 B-Type Natiuretic Peptide Ordered. EDMS 12:25 Basic Metabolic Profile Ordered. EDMS 12:25 CBC with Diff Ordered. EDMS 12:25 Cardiac Injury Profile Ordered. EDMS 12:25 Troponin Ordered. EDMS 12:26 Solu-MEDROL 125 mg IVP once ordered. sd1 12:26 Call Respiratory complete. jrd 12:26 Chest, 1 View Ordered. EDMS 12:26 ECG WITH READING ER PHYS+CARDIAG ordered. EDMS 12:28 -Blood Culture (Adults Only), peripheral from different site, or from device/port/PICC jrd etc. if present complete. 12:28 BED REQUEST+ADM ordered. EDMS 12:29 BLOOD CULTURES Ordered. EDMS 13:41 -Arterial Blood Gas Reviewed. sd1 13:41 B-Type Natiuretic Peptide Reviewed. sd1 13:41 Basic Metabolic Profile Reviewed. sd1 13:41 CBC with Diff Reviewed. sd1 13:41 Cardiac Injury Profile Reviewed. sd1 13:41 Troponin Reviewed. sd1 13:46 CT Chest Angio R/O PE Ordered. EDMS 15:26 Financial registration complete. zo 16:11 [facility] Payment Agreement was scanned into [employer] and attached to record. zo 17:04 Admission / Observation Status ordered. EDMS 17:07 Chest, 2 view PA, Lat Ordered. EDMS 17:07 Chest, 2 view PA, Lat Ordered. EDMS 17:07 Chest, 2 view PA, Lat Ordered. EDMS 17:07 Chest, 2 view PA, Lat Ordered. EDMS 17:07 Chest, 2 view PA, Lat Ordered. EDMS 17:07 Chest, 2 view PA, Lat Ordered. EDMS 17:07 Chest, 2 view PA, Lat Ordered. EDMS 17:07 Chest, 2 view PA, Lat Ordered. EDMS 17:08 Chest, 2 view PA, Lat Ordered. EDMS 17:08 Chest, 2 view PA, Lat Ordered. EDMS 18:32 Chest, 1 View Reviewed. sd1 18:32 CT Chest Angio R/O PE Reviewed. sd1 12/31 12:17 T-Sheet-- Draft Copy was scanned into [employer] and attached to record. gb 12:18 ECG/EKG was scanned into [employer] and attached to record. gb 12:18 Rhythm Strip was scanned into [employer] and attached to record. gb Administered Medications: 12/30 12:47 Drug: Albuterol-Ipratropium 1 neb [ipratropium-albuterol 0.5 mg-3 mg(2.5 mg base)/3 mL jh6 nebulization soln (1 neb)] Route: Nebulizer; 12:47 Drug: Solu-MEDROL 125 mg [Solu-Medrol 500 mg intravenous solution (125 mg)] Route: IVP; mlb1 Site: left wrist; 13:10 Drug: Albuterol-Ipratropium 1 neb [ipratropium-albuterol 0.5 mg-3 mg(2.5 mg base)/3 mL jh6 nebulization soln (1 neb)] Route: Nebulizer; 13:37 Drug: Albuterol-Ipratropium 1 neb [ipratropium-albuterol 0.5 mg-3 mg(2.5 mg base)/3 mL jh6 nebulization soln (1 neb)] Route: Nebulizer; Signatures: Dispatcher [employer] EDMS Aaliyah Vang MD MD sd1 Betzaida Lopez RN RN mcp Nhi Carranza, Ulises Reg gb Emanuel Ariza RN RN mlb1 Siva Harris Joseph, MAKENNA REGISTERED NURSE CARDIOVASCULAR ICU d Emir Burdick 6 The chart was reviewed and I authenticate all verbal orders and agree with the evaluation and treatment provided.Attachments: 16:11 [facility] Payment Agreement zo 12/31 12:17 T-Sheet-- Draft Copy gb 12:18 ECG/EKG gb Chart Complete MTDD
--- NOTE | 2017-01-01 19:16 | EDDOCDS ---
Physician Documentation [facility] Name: Kasi Oseguera Age: 76 yrs Sex: Male : 1940 Arrival Date: 12/30/2016 Time: 12:18 Bed 2 Private MD: Esteban Willson E. Disposition: 12/30/16 16:57 Hospitalization ordered by Loy Gomez for Inpatient Admission. Preliminary diagnosis is Pleural effusion, not elsewhere classified. - [facility] - Status is Inpatient Admission. mcp - Condition is Stable. - Problem is an acute exacerbation. - Symptoms are unchanged. Historical: - Allergies: no known allergies; - Home Meds: 1. albuterol sulfate 2.5 mg /3 mL (0.083 %) Nebulizer nebu 3 mL 4 times per day 2. Lasix 20 mg Oral tab 1 tab once daily 3. lisinopril 2.5 mg Oral tab 1 tab once daily 4. atorvastatin 10 mg oral tab 1 tab once daily 5. levothyroxine 125 mcg Oral tab once daily 6. Incruse Ellipta 62.5 mcg/actuation inhalation dsdv 1 puff once daily 7. Ventolin HFA 90 mcg/actuation Nebulizer HFAA 2 puffs every 4 hours as needed 8. sotalol 80 mg Oral tab 1 tab 2 times per day - PMHx: COPD; Hypercholesterolemia; Hypertension; Hypothyroidism; Cancer, Thyroid; Cancer, Lung; - PSHx: Thyroidectomy; Prostatectomy; AICD insertion; - Social history: Smoking status: Patient states former smoker of tobacco. No barriers to communication noted, The patient speaks fluent [place], Speaks appropriately for age. - Family history: Not pertinent. - : The pt / caregiver states he / she is not on anticoagulants. Home medication list is obtained from the patient, [employer] import data. - Exposure Risk Screening:: None identified. Vital Signs: 12/30 12:24 BP 169 / 78 (auto/); mlb1 12:25 Pulse Ox 93% ; mlb1 12:25 BP 108 / 70; Pulse 86; Resp 20; Temp 97.4(O); Pulse Ox 92% on 3 lpm NC; Pain 0/10; mlb1 12:28 BP 169 / 78; Pulse 86; Resp 28; Temp 98.0(O); Pulse Ox 94% on 3 lpm NC; Weight 71.67 kg mlb1 / 158.01 lbs (R); Height 5 ft. 10 in. (177.80 cm) (R); Pain 0/10; 12:30 BP 147 / 69 (auto/); mlb1 12:31 Pulse 88 MON; Pulse Ox 94% ; mlb1 12:45 BP 111 / 70 (auto/); mlb1 12:46 Pulse 84 MON; Pulse Ox 94% ; mlb1 13:00 BP 119 / 70 (auto/); mlb1 13:01 Pulse 82 MON; Pulse Ox 95% ; mlb1 13:15 BP 121 / 67 (auto/); mlb1 13:16 Pulse 81 MON; Pulse Ox 98% ; mlb1 13:30 BP 131 / 65 (auto/); mlb1 13:31 Pulse 82 MON; Pulse Ox 94% ; mlb1 13:45 BP 142 / 85 (auto/); mlb1 13:46 Pulse 84 MON; Pulse Ox 97% ; mlb1 13:51 BP 142 / 85; Pulse 82; Resp 24; Pulse Ox 93% on 3 lpm NC; Pain 0/10; mlb1 14:00 BP 118 / 71 (auto/); mlb1 14:01 Pulse 85 MON; Pulse Ox 91% ; mlb1 14:15 BP 122 / 69 (auto/); mlb1 14:16 Pulse 83 MON; Pulse Ox 92% ; mlb1 14:30 BP 120 / 69 (auto/); mlb1 14:31 Pulse 85 MON; Pulse Ox 93% ; mlb1 14:45 BP 113 / 63 (auto/); mlb1 14:46 Pulse 85 MON; Pulse Ox 92% ; mlb1 15:00 BP 124 / 75 (auto/); mlb1 15:01 Pulse 89 MON; Pulse Ox 92% ; mlb1 15:15 BP 116 / 65 (auto/); mlb1 15:16 Pulse 84 MON; Pulse Ox 92% ; mlb1 15:30 BP 86 / 58 (auto/); mlb1 15:42 Pulse Ox 86% ; mlb1 15:46 BP 115 / 77 (auto/); mlb1 15:47 Pulse 88 MON; Pulse Ox 91% ; mlb1 16:00 BP 109 / 73 (auto/); mlb1 16:00 Pulse 86 MON; Pulse Ox 92% ; mlb1 16:15 BP 119 / 59 (auto/); mlb1 16:15 Pulse 80 MON; Pulse Ox 93% ; mlb1 16:30 BP 124 / 71 (auto/); mlb1 16:30 Pulse 81 MON; Pulse Ox 92% ; mlb1 16:45 BP 115 / 75 (auto/); mlb1 16:45 Pulse 88 MON; Pulse Ox 92% ; mlb1 17:00 BP 116 / 67 (auto/); mlb1 17:00 Pulse 88 MON; Pulse Ox 90% ; mlb1 17:15 BP 121 / 78 (auto/); mlb1 17:15 Pulse 89 MON; Pulse Ox 91% ; mlb1 17:24 BP 108 / 70 (auto/); mlb1 17:24 Pulse 87 MON; Pulse Ox 92% ; mlb1 17:30 BP 126 / 72 (auto/); mlb1 17:30 Pulse 89 MON; Pulse Ox 92% ; mlb1 17:45 BP 119 / 56 (auto/); mlb1 17:45 Pulse 85 MON; Pulse Ox 91% ; mlb1 18:00 BP 91 / 53 (auto/); mlb1 18:00 Pulse 86 MON; Pulse Ox 92% ; mlb1 18:07 BP 99 / 63; Pulse 86; Resp 20; Temp 97.6(O); Pulse Ox 93% on 3 lpm NC; Pain 0/10; mlb1 12:28 Body Mass Index 22.67 (71.67 kg, 177.80 cm) mlb1 MDM: 12:24 -Blood Culture (Adults Only), peripheral from different site, or from device/port/PICC sd1 etc. if present ordered. 12:24 Call Respiratory ordered. sd1 12:24 Machine Feeder Raw Stock/Pulse Ox/q 15 min VS ordered. sd1 12:24 IV Saline Lock ordered. sd1 12:24 Oxygen at 4L/Min NC or Home dosage ordered. sd1 12:24 Rhythm Strip to chart ordered. sd1 12:25 Albuterol-Ipratropium 1 neb Nebulizer every 20 minutes x3 ordered. sd1 12:25 -Arterial Blood Gas Ordered. EDMS 12:25 -Blood Culture Ordered. EDMS 12:25 B-Type Natiuretic Peptide Ordered. EDMS 12:25 Basic Metabolic Profile Ordered. EDMS 12:25 CBC with Diff Ordered. EDMS 12:25 Cardiac Injury Profile Ordered. EDMS 12:25 Troponin Ordered. EDMS 12:26 Solu-MEDROL 125 mg IVP once ordered. sd1 12:26 Call Respiratory complete. jrd 12:26 Chest, 1 View Ordered. EDMS 12:26 ECG WITH READING ER PHYS+CARDIAG ordered. EDMS 12:28 -Blood Culture (Adults Only), peripheral from different site, or from device/port/PICC jrd etc. if present complete. 12:28 BED REQUEST+ADM ordered. EDMS 12:29 BLOOD CULTURES Ordered. EDMS 13:41 -Arterial Blood Gas Reviewed. sd1 13:41 B-Type Natiuretic Peptide Reviewed. sd1 13:41 Basic Metabolic Profile Reviewed. sd1 13:41 CBC with Diff Reviewed. sd1 13:41 Cardiac Injury Profile Reviewed. sd1 13:41 Troponin Reviewed. sd1 13:46 CT Chest Angio R/O PE Ordered. EDMS 15:26 Financial registration complete. zo 16:11 [facility] Payment Agreement was scanned into [employer] and attached to record. zo 17:04 Admission / Observation Status ordered. EDMS 17:07 Chest, 2 view PA, Lat Ordered. EDMS 17:07 Chest, 2 view PA, Lat Ordered. EDMS 17:07 Chest, 2 view PA, Lat Ordered. EDMS 17:07 Chest, 2 view PA, Lat Ordered. EDMS 17:07 Chest, 2 view PA, Lat Ordered. EDMS 17:07 Chest, 2 view PA, Lat Ordered. EDMS 17:07 Chest, 2 view PA, Lat Ordered. EDMS 17:07 Chest, 2 view PA, Lat Ordered. EDMS 17:08 Chest, 2 view PA, Lat Ordered. EDMS 17:08 Chest, 2 view PA, Lat Ordered. EDMS 18:32 Chest, 1 View Reviewed. sd1 18:32 CT Chest Angio R/O PE Reviewed. sd1 12/31 12:17 T-Sheet-- Draft Copy was scanned into [employer] and attached to record. gb 12:18 ECG/EKG was scanned into [employer] and attached to record. gb 12:18 Rhythm Strip was scanned into [employer] and attached to record. gb Administered Medications: 12/30 12:47 Drug: Albuterol-Ipratropium 1 neb [ipratropium-albuterol 0.5 mg-3 mg(2.5 mg base)/3 mL jh6 nebulization soln (1 neb)] Route: Nebulizer; 12:47 Drug: Solu-MEDROL 125 mg [Solu-Medrol 500 mg intravenous solution (125 mg)] Route: IVP; mlb1 Site: left wrist; 13:10 Drug: Albuterol-Ipratropium 1 neb [ipratropium-albuterol 0.5 mg-3 mg(2.5 mg base)/3 mL jh6 nebulization soln (1 neb)] Route: Nebulizer; 13:37 Drug: Albuterol-Ipratropium 1 neb [ipratropium-albuterol 0.5 mg-3 mg(2.5 mg base)/3 mL jh6 nebulization soln (1 neb)] Route: Nebulizer; Signatures: Dispatcher [employer] EDMS Aaliyah Vang MD MD sd1 Betzaida Lopez RN RN mcp Nhi Carranza, Ulises Reg gb Emanuel Ariza RN RN mlb1 Siva Harris Joseph, [employer] d Emir Burdick 6 The chart was reviewed and I authenticate all verbal orders and agree with the evaluation and treatment provided.Attachments: 16:11 [facility] [place] Payment Agreement zo 12/31 12:17 T-Sheet-- Draft Copy gb 12:18 ECG/EKG gb Chart Complete MTDD
--- NOTE | 2017-01-01 19:17 | EDDOCDS ---
Nurse's Notes [facility] Name: Kasi Oseguera Age: 76 yrs Sex: Male : 1940 Arrival Date: 12/30/2016 Time: 12:18 Bed 2 Private MD: Esteban Willson E. Diagnosis: Pleural effusion, not elsewhere classified Presentation: 12/30 12:20 Presenting complaint: EMS states: SOB since yesterday began during radiation. Adult mlb1 Sepsis Screening: The patient does not have new or worsening altered mentation. Patient has a respiratory rate of greater than or equal to 22 (1 point). Systolic blood pressure is greater than 100. Patient has a qSOFA score of 0- Negative Sepsis Screen. Suicide/Homicide risk assessment- the patient denies having any suicidal and/or homicidal ideations and does not present with any other emotional, behavioral or mental health complaints. Status: Patient is not a armored service technician or dependent. Transition of care: patient was not received from another setting of care. Care prior to arrival: Glucose check. 109. 12:20 Acuity: JACKIE Level 2 mlb1 12:20 Method Of Arrival: Ambulance mlb1 Triage Assessment: 12:29 General: Appears distressed, Behavior is anxious, cooperative. Pain: Denies pain. mlb1 Respiratory: Onset: The symptoms/episode began/occurred yesterday, Airway is patent Respiratory effort is labored. Historical: - Allergies: no known allergies; - Home Meds: 1. albuterol sulfate 2.5 mg /3 mL (0.083 %) Nebulizer nebu 3 mL 4 times per day 2. Lasix 20 mg Oral tab 1 tab once daily 3. lisinopril 2.5 mg Oral tab 1 tab once daily 4. atorvastatin 10 mg oral tab 1 tab once daily 5. levothyroxine 125 mcg Oral tab once daily 6. Incruse Ellipta 62.5 mcg/actuation inhalation dsdv 1 puff once daily 7. Ventolin HFA 90 mcg/actuation Nebulizer HFAA 2 puffs every 4 hours as needed 8. sotalol 80 mg Oral tab 1 tab 2 times per day - PMHx: COPD; Hypercholesterolemia; Hypertension; Hypothyroidism; Cancer, Thyroid; Cancer, Lung; - PSHx: Thyroidectomy; Prostatectomy; AICD insertion; - Social history: Smoking status: Patient states former smoker of tobacco. No barriers to communication noted, The patient speaks fluent Occitan, Speaks appropriately for age. - Family history: Not pertinent. - : The pt / caregiver states he / she is not on anticoagulants. Home medication list is obtained from the patient, [employer] import data. - Exposure Risk Screening:: None identified. Screenin:42 Screening information is obtained from the patient. Fall risk: No risks identified. mlb1 Assistance ADL's: requires no assistance with activities of daily living. Abuse/DV Screen: The patient / caregiver reports he/she is: not in a situation that causes fear, pain or injury. Nutritional screening: No deficits noted. Advance Directives: There is an active DNR order but there is no copy available at this time. home support is adequate. Assessment: 12:42 General: Appears distressed, Behavior is appropriate for age, cooperative. Pain: Denies mlb1 pain. Cardiovascular: Rhythm is sinus rhythm No ectopy. Respiratory: Airway is patent Respiratory effort is even, labored, Breath sounds are diminished bilaterally. Derm: Skin is pink, warm & dry. normal. 13:30 General: Appears in no apparent distress, to be sleeping. Respiratory: No deficits ms2 noted. Airway is patent Respiratory effort is even, appears sob at rest Respiratory pattern is regular, symmetrical. Derm: Skin is pink, warm & dry. 13:51 General: Appears in no apparent distress, Behavior is anxious, cooperative. Pain: mlb1 Denies pain. Respiratory: Airway is patent Respiratory effort is labored. Derm: No deficits noted. 14:45 General: Appears in no apparent distress, Behavior is appropriate for age, cooperative. mlb1 Pain: Denies pain. Pain: Denies pain. Respiratory: Airway is patent Respiratory effort is even, labored. Derm: No deficits noted. 15:47 General: Appears in no apparent distress, Behavior is appropriate for age, cooperative. mlb1 Pain: Denies pain. Neurological: No deficits noted. Respiratory: Airway is patent Respiratory effort is even, unlabored. Derm: No deficits noted. 16:37 General: Appears in no apparent distress, comfortable, Behavior is appropriate for age, mlb1 cooperative. 17:27 General: Appears in no apparent distress, comfortable, Behavior is appropriate for age, mlb1 cooperative. Pain: Denies pain. Neurological: No deficits noted. Respiratory: Airway is patent Respiratory effort is even, unlabored. 18:08 General: Appears in no apparent distress, Behavior is appropriate for age, cooperative. mlb1 Pain: Denies pain. Neurological: No deficits noted. Respiratory: Airway is patent Breath sounds are diminished bilaterally. Derm: No deficits noted. Vital Signs: 12:24 BP 169 / 78 (auto/); mlb1 12:25 Pulse Ox 93% ; mlb1 12:25 BP 108 / 70; Pulse 86; Resp 20; Temp 97.4(O); Pulse Ox 92% on 3 lpm NC; Pain 0/10; mlb1 12:28 BP 169 / 78; Pulse 86; Resp 28; Temp 98.0(O); Pulse Ox 94% on 3 lpm NC; Weight 71.67 kg mlb1 (R); Height 5 ft. 10 in. (177.80 cm) (R); Pain 0/10; 12:30 BP 147 / 69 (auto/); mlb1 12:31 Pulse 88 MON; Pulse Ox 94% ; mlb1 12:45 BP 111 / 70 (auto/); mlb1 12:46 Pulse 84 MON; Pulse Ox 94% ; mlb1 13:00 BP 119 / 70 (auto/); mlb1 13:01 Pulse 82 MON; Pulse Ox 95% ; mlb1 13:15 BP 121 / 67 (auto/); mlb1 13:16 Pulse 81 MON; Pulse Ox 98% ; mlb1 13:30 BP 131 / 65 (auto/); mlb1 13:31 Pulse 82 MON; Pulse Ox 94% ; mlb1 13:45 BP 142 / 85 (auto/); mlb1 13:46 Pulse 84 MON; Pulse Ox 97% ; mlb1 13:51 BP 142 / 85; Pulse 82; Resp 24; Pulse Ox 93% on 3 lpm NC; Pain 0/10; mlb1 14:00 BP 118 / 71 (auto/); mlb1 14:01 Pulse 85 MON; Pulse Ox 91% ; mlb1 14:15 BP 122 / 69 (auto/); mlb1 14:16 Pulse 83 MON; Pulse Ox 92% ; mlb1 14:30 BP 120 / 69 (auto/); mlb1 14:31 Pulse 85 MON; Pulse Ox 93% ; mlb1 14:45 BP 113 / 63 (auto/); mlb1 14:46 Pulse 85 MON; Pulse Ox 92% ; mlb1 15:00 BP 124 / 75 (auto/); mlb1 15:01 Pulse 89 MON; Pulse Ox 92% ; mlb1 15:15 BP 116 / 65 (auto/); mlb1 15:16 Pulse 84 MON; Pulse Ox 92% ; mlb1 15:30 BP 86 / 58 (auto/); mlb1 15:42 Pulse Ox 86% ; mlb1 15:46 BP 115 / 77 (auto/); mlb1 15:47 Pulse 88 MON; Pulse Ox 91% ; mlb1 16:00 BP 109 / 73 (auto/); mlb1 16:00 Pulse 86 MON; Pulse Ox 92% ; mlb1 16:15 BP 119 / 59 (auto/); mlb1 16:15 Pulse 80 MON; Pulse Ox 93% ; mlb1 16:30 BP 124 / 71 (auto/); mlb1 16:30 Pulse 81 MON; Pulse Ox 92% ; mlb1 16:45 BP 115 / 75 (auto/); mlb1 16:45 Pulse 88 MON; Pulse Ox 92% ; mlb1 17:00 BP 116 / 67 (auto/); mlb1 17:00 Pulse 88 MON; Pulse Ox 90% ; mlb1 17:15 BP 121 / 78 (auto/); mlb1 17:15 Pulse 89 MON; Pulse Ox 91% ; mlb1 17:24 BP 108 / 70 (auto/); mlb1 17:24 Pulse 87 MON; Pulse Ox 92% ; mlb1 17:30 BP 126 / 72 (auto/); mlb1 17:30 Pulse 89 MON; Pulse Ox 92% ; mlb1 17:45 BP 119 / 56 (auto/); mlb1 17:45 Pulse 85 MON; Pulse Ox 91% ; mlb1 18:00 BP 91 / 53 (auto/); mlb1 18:00 Pulse 86 MON; Pulse Ox 92% ; mlb1 18:07 BP 99 / 63; Pulse 86; Resp 20; Temp 97.6(O); Pulse Ox 93% on 3 lpm NC; Pain 0/10; mlb1 12:28 Body Mass Index 22.67 (71.67 kg, 177.80 cm) b1 Vitals: 12:28 Log In Time N/A - ambulance arrival. [facility] ED Course: 12:19 Patient visited by Waldo Rizvi PCA. jrd 12:19 Mariann Troncoso RN is Primary Nurse. jrd 12:19 Esteban Willson is Private Physician. jrd 12:19 Patient visited by Emanuel Ariza, RN. mlb1 12:19 Patient moved to Waiting jrd 12:19 Patient moved to 2 jrd 12:24 Aaliyah Vang MD is Attending Physician. sd1 12:24 Triage Initiated mlb1 12:26 Patient visited by Aaliyah Vang MD. sd1 12:31 EKG done. (by ED staff). Reviewed by Aaliyah Vang MD. nb2 12:35 Patient visited by Darcy Washburn. nb2 12:35 Patient visited by Darcy Washburn. nb2 12:35 Placed in gown. Bed in low position. Call light in reach. Side rails up X2. Cardiac nb2 monitor on. Pulse ox on. NIBP on. 12:35 -Blood Culture Sent. ck1 12:35 B-Type Natiuretic Peptide Sent. ck1 12:35 Basic Metabolic Profile Sent. ck1 12:35 CBC with Diff Sent. ck1 12:35 Cardiac Injury Profile Sent. ck1 12:35 Troponin Sent. ck1 12:35 Maintain field IV. Dressing intact. Good blood return noted. Site clean & dry. Gauge & ck1 site: 18 gauge in right wrist. 12:41 BLOOD CULTURES Sent. mlb1 12:42 No procedures done that require assistance. mlb1 12:43 Patient visited by Emanuel Ariza, RN. mlb1 12:43 The patient / caregiver is instructed regarding the plan of care and ED course. mlb1 12:47 -Arterial Blood Gas Sent. jh6 13:30 IV is intact, is free of redness or swelling. ms2 13:42 Patient visited by Yuri Donohue RN. ms2 13:44 child monitor on. Pulse ox on. NIBP on. ms2 13:59 Chest, 1 View Returned. EDMS 14:42 Patient visited by Emanuel Ariza, RN. mlb1 15:47 Patient visited by Emanuel Ariza, RN. mlb1 16:11 [facility] Payment Agreement was scanned into [employer] and attached to record. zo 16:31 CT Chest Angio R/O PE Returned. EDMS 16:57 Loy Gomez is Hospitalizing Provider. sd1 17:29 Patient visited by Emanuel Ariza, RN. mlb1 18:10 Patient visited by Emanuel Ariza RN. mlb1 12/31 12:17 T-Sheet-- Draft Copy was scanned into [employer] and attached to record. gb 12:18 ECG/EKG was scanned into [employer] and attached to record. gb 12:18 Rhythm Strip was scanned into [employer] and attached to record. gb Administered Medications: 12/30 12:47 Drug: Albuterol-Ipratropium 1 neb [ipratropium-albuterol 0.5 mg-3 mg(2.5 mg base)/3 mL jh6 nebulization soln (1 neb)] Route: Nebulizer; 12:47 Drug: Solu-MEDROL 125 mg [Solu-Medrol 500 mg intravenous solution (125 mg)] Route: IVP; mlb1 Site: left wrist; 13:10 Drug: Albuterol-Ipratropium 1 neb [ipratropium-albuterol 0.5 mg-3 mg(2.5 mg base)/3 mL jh6 nebulization soln (1 neb)] Route: Nebulizer; 13:37 Drug: Albuterol-Ipratropium 1 neb [ipratropium-albuterol 0.5 mg-3 mg(2.5 mg base)/3 mL jh6 nebulization soln (1 neb)] Route: Nebulizer; Attachments: 12:18 Rhythm Strip gb RT: 12/30 12:47 ABG's drawn from left radial artery pressure held for 5 minutes no bleeding noted jh6 pressure bandage applied specimen sent pt. tolerated well. Initial Med Neb Given as ordered Patient was instructed and evaluated on procedure Patient tolerated procedure well without adverse effect. Respiratory: Airway is patent Respiratory effort is even, labored, Respiratory pattern is regular tachypnea Breath sounds are coarse in right upper lobe, left upper lobe, right middle lobe, left lower lobe and right lower lobe Breath sounds with rhonchi in right upper lobe, left upper lobe, right middle lobe, left lower lobe and right lower lobe. 12:55 Respiratory: Airway is patent Respiratory effort is even, unlabored, Respiratory jh6 pattern is regular symmetrical, Breath sounds are clear in right upper lobe, right middle lobe, left lower lobe and right lower lobe Breath sounds with rhonchi in left upper lobe Breath sounds are diminished in right upper lobe, left upper lobe, right middle lobe, left lower lobe and right lower lobe. 13:10 Subsequent Med Neb Given as ordered Patient was reinforced on procedure Patient jh6 tolerated procedure well without adverse effect. Respiratory: Airway is patent Respiratory effort is even, unlabored, Respiratory pattern is regular symmetrical, Breath sounds are coarse in left posterior upper lobe, right posterior upper lobe, left posterior lower lobe, right posterior middle lobe and right posterior lower lobe Breath sounds are diminished in left posterior upper lobe, right posterior upper lobe, left posterior lower lobe, right posterior middle lobe and right posterior lower lobe. 13:17 Respiratory: Airway is patent Respiratory effort is even, unlabored, Respiratory jh6 pattern is regular symmetrical, Breath sounds are clear in left posterior upper lobe and right posterior upper lobe Breath sounds are coarse in left posterior lower lobe, right posterior middle lobe and right posterior lower lobe Breath sounds are diminished in left posterior lower lobe and right posterior lower lobe. 13:37 Subsequent Med Neb Given as ordered Patient was reinforced on procedure Patient jh6 tolerated procedure well without adverse effect. Respiratory: Airway is patent Respiratory effort is even, unlabored, Respiratory pattern is regular symmetrical, Breath sounds are coarse in left posterior lower lobe, right posterior middle lobe and right posterior lower lobe Breath sounds are diminished in left posterior upper lobe, right posterior upper lobe, left posterior lower lobe, right posterior middle lobe and right posterior lower lobe. 13:44 Respiratory: Breath sounds are clear in left posterior upper lobe, right posterior jh6 upper lobe and right posterior middle lobe Breath sounds are coarse in left posterior lower lobe and right posterior lower lobe Breath sounds with crackles in left posterior lower lobe and right posterior lower lobe Breath sounds are diminished in left posterior upper lobe, right posterior upper lobe, left posterior lower lobe, right posterior middle lobe and right posterior lower lobe. Order Results: Lab Order: -Arterial Blood Gas; SPEC'M 12/30/16 12:38 Test: ABG pH (ARTERIAL); Value: 7.416; Range: 7.350-7.450; Units: UNITS; Status: F Test: ABG PARTIAL PRESSURE CO2; Value: 42.9; Range: 35.0-45.0; Units: mmHg; Status: F Test: ABG PARTIAL PRESSURE O2; Value: 70.9; Range: 75.0-100.0; Abnormal: Below low normal; Units: mmHg; Status: F Test: ABG TOTAL CO2; Value: 28.3; Range: 23.0-31.0; Units: MEQ/L; Status: F Test: ABG HCO3; Value: 27.0; Range: 22.0-26.0; Abnormal: Above high normal; Units: MEQ/L; Status: F Test: ABG BASE EXCESS; Value: 2.0; Range: -2.0-2.0; Status: F Test: ABG STANDARD HCO3; Value: 26.2; Range: 22.0-26.0; Abnormal: Above high normal; Units: MEQ/L; Status: F Test: ABG O2 SATURATION; Value: 94.8; Range: 95.0-99.0; Abnormal: Below low normal; Units: %; Status: F Test: ABG DEVICE; Value: NASAL CHRISTELLE; Status: F Lab Order: B-Type Natiuretic Peptide; [facility]' 12/30/16 12:32 Test: BRAIN NATRIURETIC PEPTIDE; Value: 288; Range: <100; Abnormal: Above high normal; Units: PG/ML; Status: F Lab Order: Basic Metabolic Profile; SPEC' 12/30/16 12:32 Test: GLUCOSE, FASTING; Value: 86; Range: 83-110; Units: MG/DL; Status: F Test: BLOOD UREA NITROGEN; Value: 28; Range: 7-18; Abnormal: Above high normal; Units: MG/DL; Status: F Test: CREATININE FOR GFR; Value: 1.02; Range: 0.70-1.30; Units: MG/DL; Status: F Test: GLOMERULAR FILTRATION RATE; Value: > 60.0; Range: >42; Status: F Test: SODIUM LEVEL; Value: 139; Range: 136-145; Units: MEQ/L; Status: F Test: POTASSIUM SERUM; Value: 4.0; Range: 3.5-5.1; Units: MEQ/L; Status: F Test: CHLORIDE LEVEL; Value: 99; Range: 98-107; Units: MEQ/L; Status: F Test: CARBON DIOXIDE LEVEL; Value: 30; Range: 21-32; Units: MEQ/L; Status: F Test: ANION GAP; Value: 10; Range: 8-16; Units: MEQ/L; Status: F Test: CALCIUM LEVEL; Value: 9.3; Range: 8.8-10.2; Units: MG/DL; Status: F Test Note: ; Units are mL/min/1.73 m2 Chronic Kidney Disease Staging per NKF: Stage I & II GFR >=60 Normal to Mildly Decreased Stage III GFR 30-59 Moderately Decreased Stage IV GFR 15-29 Severely Decreased Stage V GFR <15 Very Little GFR Left ESRD GFR <15 on MANAGER RN CASE Lab Order: CBC with Diff; SPEC'M 12/30/16 12:33 Test: WHITE BLOOD COUNT; Value: 16.4; Range: 4.0-10.0; Abnormal: Above high normal; Units: K/mm3; Status: F Test: RED BLOOD COUNT; Value: 4.97; Range: 4.30-6.10; Units: M/mm3; Status: F Test: HEMOGLOBIN; Value: 16.6; Range: 14.0-18.0; Units: g/dl; Status: F Test: HEMATOCRIT; Value: 49.9; Range: 42.0-52.0; Units: %; Status: F Test: MEAN CORPUSCULAR VOLUME; Value: 100.3; Range: 80.0-96.0; Abnormal: Above high normal; Units: fl; Status: F Test: MEAN CORPUSCULAR HEMOGLOBIN; Value: 33.3; Range: 27.0-33.0; Abnormal: Above high normal; Units: pg; Status: F Test: MEAN CORPUSCULAR HGB CONC; Value: 33.2; Range: 32.0-36.5; Units: g/dl; Status: F Test: RED CELL DISTRIBUTION WIDTH; Value: 12.8; Range: 11.5-14.5; Units: %; Status: F Test: PLATELET COUNT, AUTOMATED; Value: 230; Range: 150-450; Units: k/mm3; Status: F Test: NEUTROPHILS %; Value: 85.3; Range: 36.0-66.0; Abnormal: Above high normal; Units: %; Status: F Test: LYMPH %; Value: 5.4; Range: 24.0-44.0; Abnormal: Below low normal; Units: %; Status: F Test: MONO %; Value: 5.4; Range: 0.0-5.0; Abnormal: Above high normal; Units: %; Status: F Test: EOS %; Value: 2.8; Range: 0.0-3.0; Units: %; Status: F Test: BASO %; Value: 0.2; Range: 0.0-1.0; Units: %; Status: F Test: LARGE UNSTAINED CELL %; Value: 0.8; Range: 0.0-4.0; Units: %; Status: F Test: NEUTROPHILS #; Value: 14.0; Range: 1.8-7.7; Abnormal: Above high normal; Units: K/mm3; Status: F Test: LYMPH #; Value: 1.0; Range: 1.5-4.5; Abnormal: Below low normal; Units: K/mm3; Status: F Test: MONO #; Value: 0.9; Range: 0.0-0.8; Abnormal: Above high normal; Units: K/mm3; Status: F Test: EOS #; Value: 0.5; Range: 0.0-0.50; Units: K/mm3; Status: F Test: BASO #; Value: 0.0; Range: 0.0-0.2; Units: K/mm3; Status: F Test: LARGE UNSTAINED CELL #; Value: 0.1; Range: 0.0-0.4; Units: K/mm3; Status: F Lab Order: Cardiac Injury Profile; [facility] 12/30/16 12:32 Test: CPK CREATINE PHOSPHOKINASE; Value: 30; Range: 39-308; Abnormal: Below low normal; Units: U/L; Status: F Test: CK-MB VALUE MASS; Value: 2.2; Range: 0.0-3.6; Units: NG/ML; Status: F Test: MB/CK RELATIVE INDEX; Value: 7.33; Range: < OR =4; Abnormal: Above high normal; Status: F Test Note: ; DIAGNOSIS CRITERIA MMB ng/ml Relative Index (RI) NON-AMI < or = 5 N/A [place] > 5 < or = 4 AMI > 5 > 4 Lab Order: Troponin; [facility] 12/30/16 12:32 Test: TROPONIN I; Value: < 0.02; Range: < 0.10; Units: NG/ML; Status: F Test Note: ; Troponin I Reference Interval for QMCODES LOCI: 99th Percentile= 0.00-0.045 ng/ml Risk Stratification: <= 0.10 ng/ml Decreased Risk for Adverse Clinical Events. 0.10-1.50 ng/ml Increased Risk for Adverse Clinical Events. Evaluation of additional criterion and/or repeat testing in 2-6 hours is suggested to rule out myocardial damage. >= 1.50 ng/ml Indicative of Myocardial Injury. Radiology Order: Chest, 1 View Test: Chest, 1 View REASON FOR EXAMINATION: Shortness of Breath; Portable chest, the patient semi upright, single AP view:; ; Comparisons 12/24/2016. There is a comparison chest CT dated 12/15/2016.; ; The right pleural effusion has significantly increased from 12/24/2016.; ; There is diffuse interstitial coarsening throughout the right lung. There is; also increased from 12/24/2016.; ; The left lung remains clear. Cardiac size is normal. Pacemaker is again noted,; unchanged.; ; Impression: Increasing right pleural effusion. Increasing right lung; interstitial coarsening.; ; ; Signed by; Kyle Green MD 12/30/2016 01:22 P; Radiology Order: CT Chest Angio R/O PE Test: CT Chest Angio R/O PE REASON FOR EXAMINATION: chest pain/ sob; Clinical: Chest pain and shortness of breath.; ; Technique: Axial contrast enhanced images from the thoracic inlet to the upper; abdomen using 100 ml Isovue 370 intravenous contrast material with coronal and; sagittal re-formations.; ; Findings:; Satisfactory enhancement of the pulmonary vasculature is achieved and no filling; defects are identified to suggest pulmonary embolus.; ; Chronic emphysematous changes and bronchiectasis with superimposed hilar and; mediastinal adenopathy, scattered bilateral metastatic foci, presumed; lymphangitic carcinomatosis and moderate to large partially loculated right; pleural effusion are essentially unchanged from prior examination dated; 12/15/2016. Mediastinum again demonstrates atherosclerotic changes to the; thoracic aorta and coronary arteries without pericardial effusion or; cardiomegaly.; ; ; Impression:; 1. No evidence for pulmonary embolus.; 2. Continued evidence for neoplastic changes including adenopathy, scattered; bilateral metastatic foci, lymphangitic carcinomatosis, and partially loculated; [id number] right pleural effusion. Findings are relatively stable; compared to 12/15/2016.; ; ; Signed by; Prashant Decker MD 12/30/2016 03:59 P; Outcome: 16:57 Decision to Hospitalize by Provider. sd1 17:29 CT Study completed. mlb1 18:09 Discharge Assessment: patient administered narcotics - no. The following High Risk mlb1 Discharge criteria are identified: None. Admitted to PCU accompanied by nurse, accompanied by tech, with oxygen, on monitor, with chart. Condition: stable. Property :Personal belongings accompany Pt. 18:15 Patient left the ED. [facility] Signatures: Dispatcher [employer] EDMS Aaliyah Vang MD MD sd1 Yuri Donohue,RN RN ms2 Betzaida Lopez RN RN mcp Nhi Carranza, Ulises Reg Emanuel Dunbar RN RN mlb1 Rosalina HeadleyRN RN ck1 Siva Harris Jacob jh6 Waldo Rivzi, MAKENNA AUTISM SPECIALIST d Darcy Washburn2 Corrections: (The following items were deleted from the chart) 13:51 12:42 Respiratory: Airway is patent Respiratory effort is even, unlabored, Breath mlb1 sounds are diminished bilaterally. mlb1 Chart Complete EDMUND
--- NOTE | 2017-01-22 07:53 | RO ---
DATE OF PROCEDURE: 12/30/2016 PREPROCEDURE DIAGNOSIS: Pleural effusion. POSTPROCEDURE DIAGNOSIS: Pleural effusion. PROCEDURE: Insertion of PleurX catheter. SURGEON: Dr. Sharif Mills MECHANIC AND WELDER: ANESTHESIA: ESTIMATED BLOOD LOSS: PROCEDURE NOTE: Under satisfactory moderate sedation achieved with Versed, patient was prepped and draped in usual sterile fashion. Entry site was selected and infiltrated with 1% Xylocaine as was the tract. Needle was placed into the pleural effusion and a wire was placed without difficulty. The proposed exit site was then incised and a tunnel created between the exit site and the entry site. PleurX catheter was pulled through the tunnel. Peel away introducer was then placed and the PleurX catheter placed through the peel away introducer and properly positioned. The patient was then drained of fluid. The entry incision was closed with running #4-0 Monocryl subcuticular suture and the catheter was secured to the abdominal wall with #3-0 silk suture. Patient tolerated the procedure well.
== END 2017-01-01 11:35 | disposition hospice, inpatient (51) ==
LOC: M ED 12:18 → M ED INP 16:56 → M PCU 18:19 → M ALC 12-31 23:01
PROVIDERS: ADMIT Ophthalmology; ATTEND Thoracic Surgery (Cardiothoracic Vascular Surgery)
DX: C73 Malignant neoplasm of thyroid gland (principal); C78.01 Secondary malignant neoplasm of right lung; C78.02 Secondary malignant neoplasm of left lung; J91.8 Pleural effusion in other conditions classified elsewhere; R06.02 Shortness of breath; E89.0 Postprocedural hypothyroidism; I50.9 Heart failure, unspecified; Z95.810 Presence of automatic (implantable) cardiac defibrillator; J44.9 Chronic obstructive pulmonary disease, unspecified; I10 Essential (primary) hypertension; E78.4 Other hyperlipidemia; J98.4 Other disorders of lung; E86.0 Dehydration; Z92.3 Personal history of irradiation; Z87.891 Personal history of nicotine dependence; Z79.51 Long term (current) use of inhaled steroids; Z79.899 Other long term (current) drug therapy; Z99.81 Dependence on supplemental oxygen
CPT/HCPCS: 36600; 71010; 71020; 71275; 80048; 82042; 82150; 82465; 82550; 82553; 82803; 82945; 83615; 83880; 83986; 84157; 84478; 84484; 85025; 87040; 87070; 87075; 87102; 87116; 87205; 87206; 88108; 88305; 88313; 89051; 93005; 93041; 94640; 96372; 96374; 96375; 96376; 99285; G0378; J0690; J1885; J2250; J2930; Q9967